=== PATIENT | male | born 1970 | race African-American/Black ===

== ENCOUNTER 2019-08-24 09:44 | Observation (INO) | payer BC, SELFPAY ==
[2019-08-24] VITALS (13 sets, daily range): BP systolic 102–143; BP diastolic 62–99; PULSE 67–117; RESP 14–24; TEMP 36.4–36.9; O2SAT 94–100; BMI 20.6
--- NOTE | ~2019-08-24 | CT_ITS ---
EXAMINATION: CT brain wo con DATE: 08/24/2019 12:30 INDICATION: Seizure. TECHNIQUE: Computed tomography (CT) of the head was performed without intravenous contrast. The mA wa s adjusted according to patient size. Iterative reconstruction technique was employed. The dose-lengt h product was 605.33 mGy-cm. COMPARISON: Head CT 05/30/2019 FINDINGS: There is no intracranial hemorrhage, acute infarction, or abnormal intracranial mass lesion . The ventricles are normal in size. There is mild mucosal thickening in the paranasal sinuses. The o rbits are normal. There is a small left mastoid effusion. IMPRESSION: 1. Normal brain. Reviewed, dictated and finalized at location A. [employer] IMPRESSION: 1. Normal brain.
--- NOTE | 2019-08-24 09:44 | ED.GENADULT ---
HPI - General Adult General Chief complaint: Seizure <Laura Dickerson PA-C - Last Filed: 08/24/19 12:41> Stated complaint: seizures <Laura Dickerson PA-C - Last Filed: 08/24/19 12:41> Source: patient and EMS <Laura Dickerson PA-C - Last Filed: 08/24/19 12:41> Mode of arrival: EMS <Laura Dickerson PA-C - Last Filed: 08/24/19 12:41> Limitations: no limitations <SUMI Maldonado Last Filed: 08/24/19 12:41> History of Present Illness HPI narrative: Patient was brought in by EMS after 911 call for reported seizure. Patient has a known seizure disorder, the patient tells me that he had a seizure approximately 9 AM. There was a family member at home with him at the time, she is not present at the bedside and it is unknown how long the seizure lasted. The patient is lucid, answering all questions appropriately and not complaining of any pain. He denies any alcohol or drug use. He also states that he has been out of his Keppra for at least a week. He was admitted to this facility August 07 for the same complaint. EMS reports that the patient was postictal on their arrival and that it was estimated at that time the seizure lasted 2 to 3 minutes. Patient reported to them that he took his seizure medication yesterday medication yesterday, but tells me he has been out for over a week. <Laura Dickerson PA-C - Last Filed: 08/24/19 12:41> Onset (ago): minute(s) <SUMI Maldonado Last Filed: 08/24/19 12:41> Severity: similar to prior episodes <SUMI aMldonado Last Filed: 08/24/19 12:41> Exacerbating factors: none <SUMI Maldonado Last Filed: 08/24/19 12:41> Treatments prior to arrival: none <SUMI Maldonado Last Filed: 08/24/19 12:41> Related Data Allergies/adverse reactions: Allergies Allergy/AdvReac Type Severity Reaction Status Date / Time No Known Allergies Allergy Unknown Verified 08/24/19 14:19 <Laura Dickerson PA-C - Last Filed: 08/24/19 12:41> Review of Systems Review of Systems: All systems reviewed & are unremarkable except as noted in HPI and below <Laura Dickerson PA-C - Last Filed: 08/24/19 12:41> [facility] Past Medical History Medical History: Medical History (Updated 08/27/19 @ 13:13 by Jackeline Morrison MD) Anxiety Hypertension Polysubstance abuse Urine drug screen positive on 08/07/2019 for amphetamines, cocaine, and cannabinoids. Urine drug screen positive on 08/24/2019 for cocaine and cannabinoids. Seizure disorder Tobacco dependence <Laura Dickerson PA-C - Last Filed: 08/24/19 12:41> Surgical History Surgical History: Surgical History No history of previous surgery <Laura Dickerson PA-C - Last Filed: 08/24/19 12:41> Family History Family History: Family History (Updated 08/24/19 @ 14:53 by Gilda Will PA-C) Mother Acute myocardial infarction Grandparent Acute myocardial infarction <Laura Dickerson PA-C - Last Filed: 08/24/19 12:41> Social History Social History: Social History (Updated 08/24/19 @ 14:55 by Gilda Will PA-C) Social History: The patient lives in [place] with his mayte. 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 He has smoked up to 1 pack of cigarettes per day for at least 20 years. He drinks 2 to 3 beers, several nights a week. He denies ever having any alcohol withdrawal symptoms. He admits to smoking marijuana daily. He uses cocaine recreationally, few times a week. He denies having ever used amphetamines however drug screen on 08/07/2019 was positive for amphetamines in addition to cocaine and cannabinoids. He assumes that his cocaine must have been contaminated with amphetamines. Smoking packs per day: 1 Smoking cigarettes per day: 20.0 Years smoked: 30 Smoking pack-years: 30.00 Smoking status: Unkno
--- NOTE | 2019-08-24 09:53 | PC.NURSE ---
Admits to running out of meds approx 1 week ago.
[2019-08-24 10:50] LABS: Basophils Percent Auto 0.5 % (0.2-1.2); Eosinophils Absolute Auto 0.2 K/mm3 (0-0.3); Eosinophils Percent Auto 1.8 % (0-4.4); Hematocrit 40.4 % (42.0-52.0); Immature Granulocyte Absolute 0.03 K/mm3 (0.00-0.031); Immature Granulocyte Percent A 0.4 % (0-0.5); Lymphocytes Absolute Auto 1.29 K/mm3 (0.9-3.2); Lymphocytes Percent Auto 15.3 % (18.3-44.2); Mean Corpuscular HGB Conc 34.7 g/dl (32-36); Mean Corpuscular Hemoglobin 31.5 pg (26-34); Mean Corpuscular Volume 90.8 fl (80-100); Mean Platelet Volume 10.9 fl (7.4-10.4); Monocytes Absolute Auto 0.6 K/mm3 (0.1-0.6); Monocytes Percent Auto 6.5 % (2.6-8.5); Neutrophils Absolute Auto 6.4 K/mm3 (1.3-6.7); Neutrophils Percent Auto 75.5 % (45.5-73.1); Platelet Count Result 235 k/mm3 (150-375); Red Blood Count 4.45 M/mm3 (4.6-6.20); Red Cell Distribution Width 13.5 % (11.5-14.5); White Blood Count 8.4 K/mm3 (4.5-10.0)
[2019-08-24] MEDS: LORAZEPAM INJ 2 MG/ML VIAL IV PUSH (10:58)
--- NOTE | 2019-08-24 10:58 | PC.NURSE ---
Patient heard snoring from tyalor; RN at bedside and found patient unresponsive with snoring respirations. PA called to bedside; verbal order for IV ativan 2 mg to be administered. Suctioned mouth and repositioned. Patient incontinent of bladder also.
[2019-08-24 11:00] LABS: Ethanol < 10 mg/dL (<10)
[2019-08-24 11:03] LABS: Alanine Aminotransferase 19 U/L (4-50); Albumin Level 4.6 g/dL (3.5-5.1); Alkaline Phosphatase 60 U/L (38-126); Aspartate Amino Transferase 30 U/L (17-59); Bilirubin,Total 0.3 mg/dL (0.2-1.3); Blood Urea Nitrogen 12 mg/dL (9-20); Calcium 9.2 mg/dL (8.4-10.2); Carbon Dioxide 25 mmol/L (22-30); Chloride 106 mmol/L (98-107); Estimated Glomerular Filt Rate > 60; Glucose 92 mg/dL (75-110); Sodium 140 mmol/L (137-145)
[2019-08-24 12:26] LABS: Amphetamine Screen Urine Negative (Negative); Barbiturate Screen Urine Negative (Negative); Benzodiazepines Screen Urine Negative (Negative); Cannabinoid Screen Urine Positive (Negative); Cocaine Screen Urine Positive (Negative); Methadone Screen Urine Negative (Negative); Opiate Screen Urine Negative (Negative); Phencyclidine Screen Urine Negative (Negative)
[2019-08-24] MEDS: levETIRAcetam 1000MG/NACL100ML 1,000 MG/100 ML BAG 400 MG IVPB ×2 (13:10→22:20)
--- NOTE | 2019-08-24 13:57 | ADMGEN ---
This patient, Gabriela Soriano, was admitted to IMU Room 201-01. Patient/family oriented to hospital policies and general routines including ID bracelet, bed and alarms, visiting hours, pain management, procedures, bathroom and other care routines, personal items, smoking policy, room service/diet, and visiting hours. Valuables list has been completed. Information on how to activate the Rapid Response Team has been discussed. Patient/Family are encouraged to report perceived risks to care and to ask questions if they do not understand what they are told or what they should do.
--- NOTE | 2019-08-24 14:15 | PM.IMHP ---
H&P: HPI History of Present Illness Chief complaint: seizure Narrative: Gabriela Soriano is a 48 year old male with a history of seizures, substance abuse, who presented to the emergency room via EMS after having a seizure. The patient states this morning he was sleeping and then had a seizure while laying in bed. He does report having urinary incontinence but denies any tongue biting. He states his fiancee witnessed the seizure and called 911. He is unsure how long the seizure lasted. Per the ER record it states that EMS found the patient in a postictal state on arrival and had reported the seizure lasted 2-3 minute. The patient states he has been out of his Keppra for about 1 week. He denies having a primary care who he follows up with and gets medications from. He does see Dr. Sen neurology as an outpatient. The patient denies any headache, lightheadedness, dizziness, chest pain, shortness of breath, cough, rhinorrhea, chest congestion, dysuria, frequent urination, nausea, vomiting, diarrhea, constipation, abdominal pain, leg swelling, numbness, tingling, neck pain, back pain, head trauma or any other symptoms at this time. Code status: Full code Power of defense attorney: MotherAldair PCP: None Review of Systems Review of Systems: All systems reviewed & are unremarkable except as noted in HPI and below PMFSH Past Medical History Medical History (Updated 08/24/19 @ 14:53 by Gilda Will PA-C) Anxiety Hypertension Polysubstance abuse Urine drug screen positive on 08/07/2019 for amphetamines, cocaine, and cannabinoids. Urine drug screen positive on 08/24/2019 for cocaine and cannabinoids. Seizure disorder Tobacco dependence Surgical History Surgical History No history of previous surgery Family History Family History (Updated 08/24/19 @ 14:53 by Gilda Will PA-C) Mother Acute myocardial infarction Grandparent Acute myocardial infarction Social History Social History (Updated 08/24/19 @ 14:55 by Gilda Will PA-C) Social History: The patient lives in [place] with his fiancee. 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 He has smoked up to 1 pack of cigarettes per day for at least 20 years. He drinks 2 to 3 beers, several nights a week. He denies ever having any alcohol withdrawal symptoms. He admits to smoking marijuana daily. He uses cocaine recreationally, few times a week. He denies having ever used amphetamines however drug screen on 08/07/2019 was positive for amphetamines in addition to cocaine and cannabinoids. He assumes that his cocaine must have been contaminated with amphetamines. Smoking packs per day: 1 Smoking cigarettes per day: 20.0 Years smoked: 30 Smoking pack-years: 30.00 Smoking status: Unknown if ever smoked Tobacco type: cigarettes Alcohol intake: current Alcohol use details: 2-3 beers per day Substance use: current Substance use type: marijuana and crack/cocaine Living arrangements: with family Gender identity (if verbalized by the patient): Male Agree to blood products: Yes Meds Home Medications and Allergies Home Medications Medication Instructions Recorded Confirmed Type amlodipine 5 mg PO DAILY 05/30/19 08/24/19 History folic acid 1 mg PO DAILY 05/30/19 08/24/19 History levetiracetam [Keppra] 750 mg PO BID #60 tablet 06/01/19 08/24/19 Rx thiamine HCl (vitamin B1) [Vitamin 100 mg PO QAM 30 Days #30 tablet 08/08/19 08/24/19 Rx B-1] ergocalciferol (vitamin D2) 1,250 mcg PO WEEKLY 08/24/19 08/24/19 History [Vitamin D2] Allergies Allergy/AdvReac Type Severity Reaction Status Date / Time No Known Allergies Allergy Unknown Verified 08/24/19 14:19 Vital Signs Vital Signs - 24 hr 08/24/19 09:46 08/24/19 09:52 08/24/19 12:39 Temperature 98.3 F Pulse Rate 80 80 74 Respiratory Rate
[2019-08-24] MEDS: THIAMINE HCL 200 MG/2 ML VIAL 100 MG IV PUSH (15:50)
[2019-08-24] MEDS: FOLIC ACID 1 MG/0.2 ML INJ IV PUSH (15:50)
--- NOTE | 2019-08-24 16:30 | ECG_ITS ---
Measurements Intervals [place] Rate: 89 P: 73 IL: 135 QRS: 66 QRSD: 88 T: 70 QT: 367 QTc: 447 Interpretive Statements SINUS RHYTHM NORMAL ECG Electronically Signed On 08-25-2019 7:54:53 VINYL DIPPER by Jose Maria Hutton D.O.
[2019-08-24 18:00] LABS: Potassium 3.8 mmol/L (3.4-5.0)
[2019-08-24] MEDS: ACETAMINOPHEN 325 MG TABLET 650 MG PO (19:53)
[2019-08-24] MEDS: FAMOTIDINE 20 MG/2 ML VIAL IV PUSH (19:55)
[2019-08-25] VITALS (12 sets, daily range): BP systolic 106–122; BP diastolic 69–83; PULSE 60–75; RESP 12–18; TEMP 36.3–36.9; O2SAT 98–100
[2019-08-25 04:25] LABS: Hematocrit 39.1 % (42.0-52.0); Hemoglobin 13.6 g/dL (14.0-18.0); Mean Corpuscular HGB Conc 34.8 g/dl (32-36); Mean Corpuscular Hemoglobin 31.5 pg (26-34); Mean Corpuscular Volume 90.5 fl (80-100); Mean Platelet Volume 11.4 fl (7.4-10.4); Platelet Count Result 243 k/mm3 (150-375); Red Blood Count 4.32 M/mm3 (4.6-6.20); Red Cell Distribution Width 13.4 % (11.5-14.5)
[2019-08-25 04:42] LABS: Blood Urea Nitrogen 12 mg/dL (9-20); Calcium 8.5 mg/dL (8.4-10.2); Carbon Dioxide 26 mmol/L (22-30); Chloride 101 mmol/L (98-107); Estimated CRCL calculation 88 ml/min; Estimated Glomerular Filt Rate > 60; Glucose 105 mg/dL (75-110); Potassium 3.3 mmol/L (3.4-5.0); Sodium 135 mmol/L (137-145)
[2019-08-25] MEDS: levETIRAcetam 1000MG/NACL100ML 1,000 MG/100 ML BAG 400 MG IVPB ×3 (06:25→21:14)
[2019-08-25] MEDS: AMLODIPINE BESYLATE 5 MG TABLET PO (09:43)
[2019-08-25] MEDS: FOLIC ACID 1 MG/0.2 ML INJ IV PUSH (09:44)
[2019-08-25] MEDS: THIAMINE HCL 200 MG/2 ML VIAL 100 MG IV PUSH (09:44)
[2019-08-25] MEDS: FAMOTIDINE 20 MG/2 ML VIAL IV PUSH ×2 (09:44→21:14)
--- NOTE | 2019-08-25 13:36 | PM.IMPN ---
Progress Note: A&P Assessment and Plan (1) Seizure disorder: Code(s): G40.909 - Epilepsy, unspecified, not intractable, without status epilepticus Status: Acute Assessment and Plan: Patient was brought to the ER after having a seizure at home prior to arrival. The patient had a 2nd seizure in the emergency department and was given IV Ativan. Neurology was consulted from the emergency department Patient will be given loading dose of Keppra IV 1000 mg Q 8 hours for the next 24 hours and then he can be transitioned to p.o. Keppra. Seizure precautions initiated. P.r.n. Ativan as needed for breakthrough seizures. No further seizures report likley secondary to non compliance to keppra. pt adviced to get his medication filled. Hopeful dischrage tomorrow after neurology consult and monitoring today. (2) Polysubstance abuse: Code(s): F19.10 - Other psychoactive substance abuse, uncomplicated Status: Acute Assessment and Plan: Patient has a history of alcohol abuse and his urine drug screen on arrival was positive for marijuana and cocaine. Will continue monitoring for any alcohol withdrawal symptoms. (3) Hypertension: Qualifiers: Hypertension type: essential hypertension Qualified Code(s): I10 - Essential (primary) hypertension Code(s): I10 - Essential (primary) hypertension Status: Acute Assessment and Plan: Blood pressure since arrival has been slightly elevated. P.r.n. hydralazine as needed for systolic blood pressure greater than 180 or diastolic blood pressure greater than 100. Continue monitoring BP. Subjective Date/time seen: 08/25/19 13:36 Interval history: Gabriela Soriano is a 48 year old male with a history of seizures, substance abuse, who presented to the emergency room via EMS after having a seizure. The patient states this morning he was sleeping and then had a seizure while laying in bed. He does report having urinary incontinence but denies any tongue biting. Pt admitted with a seizure. Pt likes to drink beer once a day, pt states he missed taking his keppra, long discussion about compliance to his seizure medications. Review of Systems Review of Systems: All systems reviewed & are unremarkable except as noted in HPI and below Exam Narrative: Exam Narrative: General: 48-year-old man laying flat in bed. Skin: Right middle finger with small skin tear. Head: Normocephalic atraumatic Neck: Full range of motion. Supple. Nontender. Respiratory: Lungs are clear to auscultation bilaterally. No bony chest wall tenderness. Cardiovascular: The heart has a regular rate and rhythm without murmur. No carotid bruits. Lower extremities: No lower extremity edema. Distal pulses are easily palpated. No calf tenderness to palpation. Gastrointestinal: The abdomen is soft, nontender and nondistended with active bowel sounds. Psychiatric: Lucid and oriented. Memory intact. Neurologic: A&O x4. Moving all extremities without any difficulty. Strength to extremities 5/5 equal bilaterally. No sensation changes. No focal deficits. Speech is clear. No facial drooping. Objective Data Vital Signs Vital Signs: Vital Signs - 24 hr 08/24/19 14:15 08/24/19 14:52 08/24/19 15:59 Temperature 36.9 C 36.7 C Pulse Rate 75 73 90 Respiratory Rate 20 24 H Blood Pressure 143/88 H 102/62 Pulse Oximetry 100 94 08/24/19 16:00 08/24/19 18:16 08/24/19 19:32 Temperature 36.7 C Pulse Rate 117 H 82 77 Respiratory Rate 18 Blood Pressure 130/90 Pulse Oximetry 99 08/24/19 20:00 08/24/19 22:00 08/24/19 23:33 Temperature 36.4 C L Pulse Rate 73 67 72 Respiratory Rate 18 Blood Pressure 116/87 Pulse Oximetry 98 08/25/19 00:00 08/25/19 02:00 08/25/19 03:45 Temperature 36.3 C L Pulse Rate 6
--- NOTE | 2019-08-25 17:45 | PC.NURSE ---
This patient, Gabriela Soriano, was transferred to [facility] on 08/25/19 at 1745. Personal belongings sent with patient. Belongings list checked and signed with receiving RN. Report given to YRN Dejesus. Appropriate documentation sent with patient.
--- NOTE | 2019-08-25 19:41 | PC.NURSE ---
Patient arrived from IMU @1720. Patient A&Ox3 and oriented to our unit. Call light with patient, seizure precautions in place, bed alarm set.
[2019-08-26] MEDS: levETIRAcetam 1000MG/NACL100ML 1,000 MG/100 ML BAG 400 MG IVPB ×2 (05:48→15:48)
[2019-08-26 06:00] VITALS: BP 123/79; PULSE 55; RESP 20; TEMP 36.8; O2SAT 100
[2019-08-26 08:52] VITALS: BP 104/65; PULSE 62; RESP 18; O2SAT 99
[2019-08-26] MEDS: ERGOCALCIFEROL 50,000 UNIT CAPSULE 50000 UNITS PO (08:56)
[2019-08-26] MEDS: AMLODIPINE BESYLATE 5 MG TABLET PO (08:56)
[2019-08-26] MEDS: THIAMINE HCL 200 MG/2 ML VIAL 100 MG IV PUSH (08:56)
[2019-08-26] MEDS: FAMOTIDINE 20 MG/2 ML VIAL IV PUSH (08:58)
[2019-08-26] MEDS: FOLIC ACID 1 MG/0.2 ML INJ IV PUSH (08:59)
[2019-08-26 10:32] LABS: Hematocrit 38.2 % (42.0-52.0); Hemoglobin 13.1 g/dL (14.0-18.0); Mean Corpuscular HGB Conc 34.3 g/dl (32-36); Mean Corpuscular Hemoglobin 31.2 pg (26-34); Mean Platelet Volume 10.8 fl (7.4-10.4); Platelet Count Result 221 k/mm3 (150-375); Red Cell Distribution Width 13.2 % (11.5-14.5); White Blood Count 7.8 K/mm3 (4.5-10.0)
[2019-08-26 10:47] LABS: Blood Urea Nitrogen 9 mg/dL (9-20); Calcium 8.4 mg/dL (8.4-10.2); Carbon Dioxide 28 mmol/L (22-30); Chloride 103 mmol/L (98-107); Estimated CRCL calculation 100 ml/min; Estimated Glomerular Filt Rate > 60; Glucose 105 mg/dL (75-110); Magnesium 1.6 mg/dL (1.6-2.3); Potassium 3.6 mmol/L (3.4-5.0); Sodium 136 mmol/L (137-145)
[2019-08-26 14:00] VITALS: BP 121/80; PULSE 69; RESP 18; TEMP 36.6; O2SAT 100
--- NOTE | 2019-08-26 15:51 | PM.DS ---
DS: Diagnosis Admitting Diagnosis Admitting Diagnosis: Epilepsy, unspecified, not intractable, without status epilepticus Discharge Diagnosis (1) Seizure disorder: Code(s): G40.909 - Epilepsy, unspecified, not intractable, without status epilepticus Status: Acute Assessment and Plan: Patient was brought to the ER after having a seizure at home prior to arrival. The patient had a 2nd seizure in the emergency department and was given IV Ativan. Neurology was consulted from the emergency department Patient will be given loading dose of Keppra IV 1000 mg Q 8 hours for the next 24 hours and then he can be transitioned to p.o. Keppra. Seizure precautions initiated. P.r.n. Ativan as needed for breakthrough seizures. No further seizures report likley secondary to non compliance to keppra. pt adviced to get his medication filled. Hopeful dischrage tomorrow after neurology consult and monitoring today. (2) Polysubstance abuse: Code(s): F19.10 - Other psychoactive substance abuse, uncomplicated Status: Acute Assessment and Plan: Patient has a history of alcohol abuse and his urine drug screen on arrival was positive for marijuana and cocaine. Will continue monitoring for any alcohol withdrawal symptoms. (3) Hypertension: Qualifiers: Hypertension type: essential hypertension Qualified Code(s): I10 - Essential (primary) hypertension Code(s): I10 - Essential (primary) hypertension Status: Acute Assessment and Plan: Blood pressure since arrival has been slightly elevated. P.r.n. hydralazine as needed for systolic blood pressure greater than 180 or diastolic blood pressure greater than 100. Continue monitoring BP. DS: Summary Hospital Course Reason for hospitalization: Gabriela Soriano is a 48 year old male with a history of seizures, substance abuse, who presented to the emergency room via EMS after having a seizure. The patient states this morning he was sleeping and then had a seizure while laying in bed. He does report having urinary incontinence but denies any tongue biting. He states his fiancee witnessed the seizure and called 911. He is unsure how long the seizure lasted. Per the ER record it states that EMS found the patient in a postictal state on arrival and had reported the seizure lasted 2-3 minute. The patient states he has been out of his Keppra for about 1 week. He denies having a primary care who he follows up with and gets medications from. He does see Dr. Sen neurology as an outpatient. The patient denies any headache, lightheadedness, dizziness, chest pain, shortness of breath, cough, rhinorrhea, chest congestion, dysuria, frequent urination, nausea, vomiting, diarrhea, constipation, abdominal pain, leg swelling, numbness, tingling, neck pain, back pain, head trauma or any other symptoms at this time. Hospital Course: Patient is a 48 year male with a history of seizure and polysubstance severe he had been out of his Keppra and not been taking the medication, he reported on the day of the admission while in the bed he had seizures urinary incontinence patient was brought to the emergency department further evaluation he was started on IV Keppra loaded, patient has not had any seizure while in the hospital clinically stable will resume his oral Keppra and have given him 2 refills with 2nd to follow-up with neurologist as soon as possible, also instructed not to drive until seen by his neurologist Status at Discharge Cognitive/behavioral status at discharge: Patient is back to the baseline Functional status at discharge: independent ambulation Overall status at discharge: patient is back to baseline Time Spent with Patient Time attestation: Total time spent providing and/or coordinating discharge services:
--- NOTE | 2019-08-26 19:58 | PC.NURSE ---
Patient discharged @1735, patient left wheel chair via volunteer services. Patient refused to have family pick him up to transport home. The patient's fiance called and offered to pick him up but the patient denied and said he would take the bus home.
--- NOTE | 2019-08-26 20:01 | PC.NURSE ---
New medications verified with the patient upon discharge and new prescriptions were transmitted to patients pharmacy.
== END 2019-08-26 17:35 | disposition home or self-care (01) ==
LOC: ANHED 14:05 → ANHIMU 15:22 → ANH3MEDSUR 08-26 08:42 → ANHIMU 08-27 09:43
PROVIDERS: Physician Assistant; Admitting Provider Hospitalist; Emergency Provider Emergency Medicine; Visit Provider Family Medicine
DX: G40.909 Epilepsy, unspecified, not intractable, without status epilepticus (principal); F19.10 Other psychoactive substance abuse, uncomplicated; F10.10 Alcohol abuse, uncomplicated; F17.210 Nicotine dependence, cigarettes, uncomplicated; I10 Essential (primary) hypertension; Z79.899 Other long term (current) drug therapy; Z91.14 Patient's other noncompliance with medication regimen
CPT/HCPCS: 36415; 51701; 70450; 80048; 80053; 80307; 83735; 84132; 85025; 85027; 93005; 96365; 96366; 96375; 96376; 97161; 97165; 99285; A9270; G0378; G0379; J1953; J2060; J3411

== ENCOUNTER 2019-12-05 05:51 | Observation (INO) | payer BC, SELFPAY ==
[2019-12-05] VITALS (30 sets, daily range): BP systolic 112–175; BP diastolic 69–101; PULSE 77–185; RESP 18–29; TEMP 36.5–37.1; O2SAT 89–100; BMI 21.2
--- NOTE | ~2019-12-05 | XR_ITS ---
EXAMINATION: XR chest 1V portable DATE: 12/05/2019 07:13 INDICATION: Shortness of breath. TECHNIQUE: A single frontal view of the chest was obtained. COMPARISON: chest single view 08/07/19 FINDINGS: There is mild atelectasis at left lung base. No pleural effusion or pneumothorax. The heart size is normal. IMPRESSION: 1. Mild atelectasis at left lung base. Reviewed, dictated and finalized at location A.
--- NOTE | ~2019-12-05 | XR_ITS ---
EXAMINATION: XR chest 1V portable DATE: 12/06/2019 10:58 INDICATION: Aspiration. TECHNIQUE: A single frontal view of the chest was obtained. COMPARISON: Chest single view 12/05/2019 FINDINGS: There is no pneumonia, pleural effusion, or pneumothorax. The heart size is normal. IMPRESSION: 1. No acute cardiopulmonary disease. Reviewed, dictated and finalized at location A.
--- NOTE | ~2019-12-05 | XR_ITS ---
EXAMINATION: XR chest 1V portable DATE: 12/05/2019 14:45 INDICATION: Aspiration. TECHNIQUE: A single frontal view of the chest was obtained. COMPARISON: Chest single view at 7:07 AM FINDINGS: The patient is rotated to his left. There is no pneumonia, pleural effusion, or pneumothora x. The heart size is normal. IMPRESSION: 1. No acute cardiopulmonary disease. Reviewed, dictated and finalized at location A.
--- NOTE | 2019-12-05 06:14 | ECG_ITS ---
Measurements Intervals [place] Rate: 171 P: IN: 0 QRS: 76 QRSD: 94 T: 62 QT: 269 QTc: 455 Interpretive Statements ATRIAL FIBRILLATION WITH RAPID VENTRICULAR RESPONSE BORDERLINE ST ABNORMALITY- ANTEROLAT/INF LEADS ABNORMAL ECG Electronically Signed On 12-05-2019 7:20:56 CDT by Jose Maria Hutton D.O.
--- NOTE | 2019-12-05 06:15 | ED.SEIZURE ---
HPI - Seizure General Chief Complaint: Seizure Stated Complaint: seizures Time Seen by Provider: 12/05/19 06:12 History of Present Illness HPI Narrative: Patient arrives via EMS with his jose antonio for repeated seizures at home. He has been out of his medicine for 3 days and is supposed to pick it up this morning. He is postictal and confused and I cannot get any information from him currently. His EKG shows a heart rate of 171 and A. fib rapid ventricular response. We will treat that with diltiazem, and start him on some Keppra for his seizures. MD complaint: seizure Seizure History: Yes Related Data Allergies Allergy/AdvReac Type Severity Reaction Status Date / Time No Known Allergies Allergy Unknown Verified 08/24/19 14:19 Review of Systems Review of Systems: Narrative: Cannot obtain a review of systems with the patient being postictal. [facility] Past Medical History Medical History Anxiety Hypertension Polysubstance abuse Urine drug screen positive on 08/07/2019 for amphetamines, cocaine, and cannabinoids. Urine drug screen positive on 08/24/2019 for cocaine and cannabinoids. Seizure disorder Tobacco dependence Surgical History Surgical History No history of previous surgery Family History Family History Mother Acute myocardial infarction Grandparent Acute myocardial infarction Social History Social History Social History: The patient lives in [place] with his mayte. 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 He has smoked up to 1 pack of cigarettes per day for at least 20 years. He drinks 2 to 3 beers, several nights a week. He denies ever having any alcohol withdrawal symptoms. He admits to smoking marijuana daily. He uses cocaine recreationally, few times a week. He denies having ever used amphetamines however drug screen on 08/07/2019 was positive for amphetamines in addition to cocaine and cannabinoids. He assumes that his cocaine must have been contaminated with amphetamines. Smoking packs per day: 1 Smoking cigarettes per day: 20.0 Years smoked: 30 Smoking pack-years: 30.00 Smoking status: Unknown if ever smoked Tobacco type: cigarettes Alcohol intake: current Substance use: current Substance use type: marijuana and crack/cocaine Gender identity (if verbalized by the patient): Male Agree to blood products: Yes Exam Narrative: Exam Narrative: GENERAL: Patient is barely awake nonresponsive, has blood on his chin, and stool in his close HEAD: Normocephalic, EYES: PERRLA and EOMI. ENT: Nares clear, no rhinorrhea or epistaxis. Mucous membranes moist. NECK: Supple. CHEST: Audible rhonchi HEART: Regular rate and rhythm. No murmur heard. Normal peripheral pulses. ABDOMEN: Soft, nontender, nondistended, normal active bowel sounds. EXTREMITIES: No edema. SKIN: Warm, dry, no rash. NEURO: Postictal.. Course Reevaluation(s) Reevaluation #1: The patient is now awake and feeling better. I explained about his heart rate the A. fib, and that he needs to stay in the hospital for that. He and his fianc?e agree. Consultations Consultation #1: Call the hospitalist at 745 for admission for A. fib rapid ventricular rate. Dr. Rodriguez agrees with the admission and requests that we get a cardiology consult. ENT was called back and said it would be Dr. Jacob during the consult. Date: 12/05/19 Time: 07:48 Consultation #2: Called for the fire support man on-call. Date: 12/05/19 Vital Signs Vital signs: Vital Signs Temperature 98.7 F 12/05/19 05:49 Pulse Rate 166 H 12/05/19 05:49 Respiratory Rate 27 H 12/05/19 05:49 Blood Pressure 175/101 H 12/05/19 05:49 Pulse Oximetry 93 12/05/19 05:49 Temperature 98.7 F
[2019-12-05] MEDS: levETIRAcetam 1000MG/NACL100ML 1,000 MG/100 ML BAG 400 MG IVPB ×2 (06:30→20:55)
--- NOTE | 2019-12-05 06:36 | PC.NURSE ---
While in room, patient began to have another 10 second seizure. EDP Juliet was in room, per EDP Juliet place patient on his side to support his airway. Patient's O2 increased to 4L via NC. Patient began to speak in full sentences prior to this seizure.
[2019-12-05 06:48] LABS: Basophils Absolute Auto 0.1 K/mm3 (0.0-0.1); Basophils Percent Auto 0.3 % (0.2-1.2); Eosinophils Absolute Auto 0.3 K/mm3 (0-0.3); Eosinophils Percent Auto 1.4 % (0-4.4); Hematocrit 44.9 % (42.0-52.0); Hemoglobin 14.5 g/dL (14.0-18.0); Immature Granulocyte Percent A 0.6 % (0-0.5); Lymphocytes Absolute Auto 4.35 K/mm3 (0.9-3.2); Lymphocytes Percent Auto 24.2 % (18.3-44.2); Mean Corpuscular HGB Conc 32.3 g/dl (32-36); Mean Corpuscular Hemoglobin 31.6 pg (26-34); Mean Corpuscular Volume 97.8 fl (80-100); Mean Platelet Volume 11.4 fl (7.4-10.4); Monocytes Absolute Auto 1.2 K/mm3 (0.1-0.6); Monocytes Percent Auto 6.9 % (2.6-8.5); Neutrophils Percent Auto 66.6 % (45.5-73.1); Platelet Count Result 214 k/mm3 (150-375); Red Blood Count 4.59 M/mm3 (4.6-6.20); Red Cell Distribution Width 14.6 % (11.5-14.5)
[2019-12-05 06:58] LABS: Prothrombin Time 12.4 Seconds (11.1-14.7)
[2019-12-05 07:04] LABS: Albumin Level 5.1 g/dL (3.5-5.1); Alkaline Phosphatase 72 U/L (38-126); Aspartate Amino Transferase 78 U/L (17-59); Bilirubin,Total 0.2 mg/dL (0.2-1.3); Blood Urea Nitrogen 8 mg/dL (9-20); Calcium 9.9 mg/dL (8.4-10.2); Carbon Dioxide 10 mmol/L (22-30); Chloride 105 mmol/L (98-107); Estimated Glomerular Filt Rate > 60; Glucose 165 mg/dL (75-110); Potassium 3.6 mmol/L (3.4-5.0); Sodium 144 mmol/L (137-145)
[2019-12-05 07:10] LABS: Alanine Aminotransferase 50 U/L (4-50)
[2019-12-05 07:15] LABS: Add Urine Microscopic? YES; Appearance Urine Clear (Clear); Bacteria Urine Trace /hpf; Bilirubin Urine Negative (Negative); Blood Urine 2+ (Negative); Color Urine Straw (Yellow); Glucose Urine UA Negative (Negative); Hyaline Casts Urine 20-29 /lpf; Ketones Urine Negative (Negative); Leukocyte Esterase Ur Negative LEU/UL (Negative); Mucus Urine Rare /lpf; Nitrate Urine Negative (Negative); Protein Urine 3+ mg/dL (Negative); Specific Grav Ur 1.012 (1.001-1.035); Urobilinogen Urine Negative mg/dL (<2.0); WBC Urine 0-3 /hpf
--- NOTE | 2019-12-05 08:14 | PC.NURSE ---
assuming care of pt from [place] [facility]. Pt is A&Ox2 (self and place). Pt resting with eyes closed and even rise and fall of chest. Pt aware of POC. Pt has call light in reach. Pt has depends on due to incontinence with seizure. Pt has seizure pads in place. Pt has family at bedside .
--- NOTE | 2019-12-05 09:00 | PC.NURSE ---
This patient, Gabriela Soriano, was admitted to IMU Room 232-01. Patient oriented to hospital policies and general routines including ID bracelet, bed and alarms, visiting hours, pain management, procedures, bathroom and other care routines, personal items, smoking policy, room service/diet, and visiting hours. Valuables list has been completed. Information on how to activate the Rapid Response Team has been discussed. Patient are encouraged to report perceived risks to care and to ask questions if they do not understand what they are told or what they should do.
--- NOTE | 2019-12-05 09:18 | ECHO_ITS ---
Patient Info Name: Gabriela Soriano Age: 48 years : 1970 Gender: Male Ht: 71 in Wt: 165 lbs BSA: 1.94 m2 BP: 123 / 92 mmHg Heart Rhythm: Sinus Rhythm Technical Quality: Good Exam Date: 12/05/2019 9:56 AM Exam Location: [facility] Patient Status: Outpatient Admit Date: 12/05/2019 Staff Ordering Physician: Belem Jacob MD Appeals Rn: Angel Mart, LAURA, RT Attending Provider: Estephania Rodriguez MD Referring Physician: Nidia MATTHEW; Exam Type: CA echo doppler color flow Study Info Indications I48.0 - Paroxysmal atrial fibrillation Complete two-dimensional, color flow and Doppler transthoracic echocardiogram is performed. Summary 1. Left ventricular chamber size, systolic function and diastolic function are normal with no regional wall motion abnormalities with an estimated ejection fraction of 60-65%. There is borderline concentric hypertrophy. 2. No significant valve disease. 3. Normal sinus rhythm. 4. No pulmonary hypertension, estimated pulmonary arterial systolic pressure is 27 mmHg. Left Ventricle Left ventricular chamber dimension is normal. Left ventricular systolic function is normal, estimated at Empty. There is mildly increased left ventricular wall thickness. Left ventricular septal wall motion is normal. The left ventricular diastolic function is normal. Global longitudinal strain is normal at 18 %. Left ventricular chamber size, systolic function and diastolic function are normal with no regional wall motion abnormalities with an estimated ejection fraction of 60-65%. There is borderline concentric hypertrophy. Right Ventricle Right ventricular chamber dimension is normal. Right ventricular systolic function is normal. Left Atria Left atrial chamber dimension is normal. Right Atria Right atrial chamber dimension is normal. Aortic Valve The aortic valve is trileaflet. There is no aortic valve sclerosis. There is no aortic valve stenosis. There is no aortic valve regurgitation. Pulmonic Valve The pulmonic valve is normal. There is no pulmonic valve stenosis. There is trace pulmonic regurgitation. Mitral Valve The mitral valve has normal leaflets. There is no mitral valve stenosis. There is no mitral valve regurgitation. Tricuspid Valve The tricuspid valve leaflets are normal. There is no significant tricuspid valve stenosis. There is trace tricuspid valve regurgitation. No pulmonary hypertension, estimated pulmonary arterial systolic pressure is 27 mmHg. Pericardium/Pleural The pericardium appears normal. There is no pericardial effusion. Inferior Vena Cava Normal inferior vena cava with >50% collapse upon inspiration consistent with Empty right atrial pressure, 5 mmHg. Aorta The aortic root size at the sinus of Valsalva is normal. The prox ascending aorta size is normal. Left Ventricular Outflow Tract Name Value Normal LVOT 2D LVOT Diameter 2.2 cm LVOT Doppler LVOT Peak Gradient 7 mmHg LVOT Mean Gradient 3 mmHg LVOT VTI 24 cm
--- NOTE | 2019-12-05 09:24 | WPDCN ---
Assessment and Plan Assessment and plan (1) Atrial fibrillation with RVR: Code(s): I48.91 - Unspecified atrial fibrillation Status: Acute Assessment and Plan: New onset of AFib RVR, transient, now back to NSR. Likely related to his acute seizures, possibly some contribution from alcohol. No drug screen done on this admission but he has history of polysubstance abuse. Check TSH Echo Low risk for cardioembolic event. Would use aspirin daily instead of any anticoagulant. Discontinue Cardizem drip and add p.o. metoprolol. Probably can be discharged this afternoon or tomorrow morning from my point of view if no recurrence and testing shows no significant pathology. (2) Seizure disorder: Code(s): G40.909 - Epilepsy, unspecified, not intractable, without status epilepticus Status: Acute Assessment and Plan: Keppra has been resumed. (3) Hypertension: Qualifiers: Hypertension type: essential hypertension Qualified Code(s): I10 - Essential (primary) hypertension Code(s): I10 - Essential (primary) hypertension Status: Acute Assessment and Plan: Will try using hypertension for both the AFib and blood pressure to reduce polypharmacy and hopefully promote compliance (4) Medically noncompliant: Code(s): Z91.19 - Patient's noncompliance with other medical treatment and regimen Status: Acute Assessment and Plan: Compliance with medications recommended (5) Polysubstance abuse: Code(s): F19.10 - Other psychoactive substance abuse, uncomplicated Status: Acute Assessment and Plan: History of drug screens positive for amphetamines and cocaine as well as cannabinoids.. Admits to 2-3 beers a day. Patient denies ever using drugs. HPI Data of Consult Date/Time: 12/05/19 09:24 Requesting Physician: Estephania Rodriguez MD Primary Care Provider: UNKNOWN,DOCTOR Consult Narrative Narrative: Date of service: 12/05/2019 Mr. Oliver Soriano is a 48-year-old male whom we were asked to see at the request of Dr. Rodriguez for advice and opinion regarding his new onset of atrial fibrillation with rapid ventricular rate. Mr. Soriano has no prior history of heart disease but does have hypertension and polysubstance abuse. He developed seizures over the past year. This morning he had about 3 seizures and came to the emergency room with AFib RVR, postictal. He was given IV Cardizem 10 mg and started on a Cardizem drip at 5 milligrams/hour. He does converted back to sinus rhythm. The patient denies any chest discomfort, shortness of breath, palpitations, bleeding problems, thyroid disease, exertional angina. Although the patient has a history of polysubstance abuse he denies any drug use at all. Drinks 2-3 beers a day. He is unaware of any diagnosis of hypertension, although amlodipine is on his medication list. Denies diabetes or hyperlipidemia. Does smoke. Review of Systems Constitutional: Constitutional: Denies chills Eyes: Eyes: Denies blurry vision ENT: Denies epistaxis Cardiovascular: Cardiovascular: Denies chest pain, Denies pedal edema, Denies leg edema, Denies lightheadedness and Denies palpitations Respiratory: Respiratory: Denies chest congestion, Denies cough, Denies dyspnea and Denies dyspnea on exertion Gastrointestinal: Gastrointestinal: Denies abdominal pain, Denies hematochezia and Denies hematemesis Genitourinary: Genitourinary: Denies hematuria and Denies dysuria Musculoskeletal: Musculoskeletal: Denies back pain and Denies arthralgias Integumentary/Breasts: Skin/Breast: Denies rash Neurologic: Denies headache(s) Comments: Has had seizures for the last 1-2 years. Psychiatric: Psychiatric: Denies behavioral changes
[2019-12-05] MEDS: SODIUM CHLORIDE 0.9% IV 1,000 ML 125 ML IV CONT ×2 (10:55→20:54)
[2019-12-05 11:41] LABS: Magnesium 1.8 mg/dL (1.6-2.3)
[2019-12-05] MEDS: ASPIRIN 325 MG TABLET PO (12:46)
[2019-12-05] MEDS: METOPROLOL SUCCINATE EXT REL 25 MG TABCR PO (12:46)
--- NOTE | 2019-12-05 12:51 | PM.IMHP ---
H&P: HPI History of Present Illness Chief complaint: a fib rvr,seizures,fecal incontinance Narrative: Gabriela Soriano is a 48 year old male with recent history of seizures a patient states that he ran out of his seizure medication 2 days ago and had not taken any medication he presented emergency department after he had 3 episode of seizure, was started on IV Keppra, while in the emergency department patient had atrial fibrillation with RVR he was given 10 mg IV diltiazem and started on a diltiazem drip, patient also has a history of alcohol abuse as well as illicit drug abuse in the past including cocaine which he denies at the present time but does drink alcohol to 3 beers daily, currently patient denies any complaint of chest pain shortness of breath palpitation fever or chills Review of Systems Review of Systems: All systems reviewed & are unremarkable except as noted in HPI and below PMFSH Past Medical History Medical History Anxiety Hypertension Polysubstance abuse Urine drug screen positive on 08/07/2019 for amphetamines, cocaine, and cannabinoids. Urine drug screen positive on 08/24/2019 for cocaine and cannabinoids. Seizure disorder Tobacco dependence Surgical History Surgical History No history of previous surgery Family History Family History Mother Acute myocardial infarction Grandparent Acute myocardial infarction Father Unknown family medical history Social History Social History Social History: The patient lives in [place] with his [facility]. 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 He has smoked up to 1 pack of cigarettes per day for at least 20 years. He drinks 2 to 3 beers, several nights a week. He denies ever having any alcohol withdrawal symptoms. He admits to smoking marijuana daily. He uses cocaine recreationally, few times a week. He denies having ever used amphetamines however drug screen on 08/07/2019 was positive for amphetamines in addition to cocaine and cannabinoids. He assumes that his cocaine must have been contaminated with amphetamines. Smoking packs per day: 0.5 Smoking cigarettes per day: 10.0 Years smoked: 15 Smoking pack-years: 7.50 Smoking status: Current every day smoker Tobacco type: cigarettes Second hand tobacco smoke exposure: Yes Alcohol intake: current Drinks per week: 21 Substance use: former Substance use type: marijuana and crack/cocaine Gender identity (if verbalized by the patient): Male Agree to blood products: Yes Meds Home Medications and Allergies Home Medications Medication Instructions Recorded Confirmed Type folic acid 1 mg PO DAILY #30 tablet 08/26/19 12/05/19 Rx levetiracetam [Keppra] 750 mg PO BID #60 tablet 08/26/19 12/05/19 Rx thiamine HCl (vitamin B1) 100 mg PO DAILY #30 tablet 08/26/19 12/05/19 Rx Allergies Allergy/AdvReac Type Severity Reaction Status Date / Time No Known Allergies Allergy Unknown Verified 12/05/19 09:29 Vital Signs Vital Signs - 24 hr 12/05/19 05:49 12/05/19 06:30 12/05/19 06:46 Temperature 98.7 F Pulse Rate 166 H 131 H 131 H Respiratory Rate 27 H 24 H 27 H Blood Pressure 175/101 H 120/80 112/69 Pulse Oximetry 93 98 90 12/05/19 06:47 12/05/19 06:52 12/05/19 07:00 Temperature Pulse Rate 140 H 148 H 181 H Respiratory Rate 27 H 26 H Blood Pressure 122/78 Pulse Oximetry 89 L 97 12/05/19 07:01 12/05/19 07:15 12/05/19 07:16 Temperature Pulse Rate 185 H 147 H 139 H Respiratory Rate 29 H 20 25 H Blood Pressure 121/95 H Pulse Oximetry 12/05/19 07:17 12/05/19 07:30 12/05/19 07:31 Temperature Pulse Rate 130 H 119 H 131 H Respiratory Rate 22 H 18 22 H Blood Pressure 127/97 H
[2019-12-05] MEDS: LORAZEPAM INJ 2 MG/ML VIAL IV PUSH (14:20)
--- NOTE | 2019-12-05 14:46 | PC.NURSE ---
1440 Patient's bed alarm sounding. Entered room to find patient on stomach and violently shaking. Patient breathing heavy and unable to clear secretions. Patient's mouth suctioned. Dr. Rodriguez called made aware of seizure. Ativan 2mg IVP x1 ordered and administered. Dr. Rodriguez in room to see patient. New orders received. Will continue to monitor patient.
[2019-12-05 14:50] LABS: Thyroid Stimulating Hormone 0.977 uIU/mL (0.465-4.680)
[2019-12-06] VITALS (17 sets, daily range): BP systolic 140–170; BP diastolic 78–109; PULSE 59–79; RESP 18–20; TEMP 36.1–36.6; O2SAT 95–100
[2019-12-06 05:10] LABS: Hematocrit 36.2 % (42.0-52.0); Hemoglobin 12.7 g/dL (14.0-18.0); Mean Corpuscular HGB Conc 35.1 g/dl (32-36); Mean Corpuscular Hemoglobin 31.3 pg (26-34); Mean Corpuscular Volume 89.2 fl (80-100); Mean Platelet Volume 10.6 fl (7.4-10.4); Platelet Count Result 154 k/mm3 (150-375); Red Blood Count 4.06 M/mm3 (4.6-6.20); Red Cell Distribution Width 13.7 % (11.5-14.5); White Blood Count 16.9 K/mm3 (4.5-10.0)
[2019-12-06] MEDS: SODIUM CHLORIDE 0.9% IV 1,000 ML 125 ML IV CONT ×2 (05:16→14:45)
[2019-12-06 05:30] LABS: Alanine Aminotransferase 37 U/L (4-50); Albumin Level 3.8 g/dL (3.5-5.1); Alkaline Phosphatase 57 U/L (38-126); Aspartate Amino Transferase 51 U/L (17-59); Bilirubin,Total 0.7 mg/dL (0.2-1.3); Blood Urea Nitrogen 8 mg/dL (9-20); Carbon Dioxide 23 mmol/L (22-30); Chloride 107 mmol/L (98-107); Estimated CRCL calculation 87 ml/min; Estimated Glomerular Filt Rate > 60; Glucose 91 mg/dL (75-110); Potassium 3.2 mmol/L (3.4-5.0); Sodium 136 mmol/L (137-145)
[2019-12-06 05:48] LABS: Amphetamine Screen Urine Negative (Negative); Barbiturate Screen Urine Negative (Negative); Benzodiazepines Screen Urine Negative (Negative); Cannabinoid Screen Urine Positive (Negative); Cocaine Screen Urine Negative (Negative); Methadone Screen Urine Negative (Negative); Opiate Screen Urine Negative (Negative); Phencyclidine Screen Urine Negative (Negative)
[2019-12-06] MEDS: ASPIRIN 325 MG TABLET PO (09:15)
[2019-12-06] MEDS: FOLIC ACID 1 MG TABLET PO (09:15)
[2019-12-06] MEDS: THIAMINE HCL 100 MG TABLET PO (09:16)
[2019-12-06] MEDS: levETIRAcetam 1000MG/NACL100ML 1,000 MG/100 ML BAG 400 MG IVPB (09:16)
[2019-12-06] MEDS: METOPROLOL SUCCINATE EXT REL 25 MG TABCR PO (09:16)
[2019-12-06] MEDS: POTASSIUM CHLORIDE 20 MEQ TABLET 40 MEQ PO (09:16)
--- NOTE | 2019-12-06 10:48 | PM.PNCARD ---
Progress Note: A&P Additional Plan 48-year-old black male with: Transient atrial fibrillation probably related to seizure activity and sympathetic overdrive secondary to this Simple beta-elo therapy recommended at this time anticoagulation does not appear to be indicated No additional cardiac recommendations today Billy Blanc MD [facility] Subjective Date/time seen: Date of service: 12/06/19 10:48 Interval history: Follow-up visit with this 48-year-old man with a transient atrial fibrillation in the setting of recurrent seizures. Patient is comfortable resting in bed hoping to be discharged today offers no complaints currently Exam Const: General: comfortable and no acute distress Other: Resting comfortably in bed watching television HENMT: Mouth: Yes moist mucous membranes Eyes: Sclera: sclerae normal Pupils: Equal, round and reactive pupils present Neck: Neck: supple and no JVD Thyroid: thyroid normal Resp: Effort & Inspection: normal respiratory effort Auscultation: clear to auscultation bilaterally Cardio: Rate: regular rate Rhythm: regular rhythm Other: No murmur no gallop no rub GI: Auscultation: normal bowel sounds Skin: General skin exam: normal color Neuro: Cognition (Neuro): normal cognition Extrem: General: normal to inspection Objective Data Vital Signs Vital Signs: Vital Signs - 24 hr 12/05/19 12:00 12/05/19 12:46 12/05/19 12:50 Temperature 37.0 C Pulse Rate 80 83 87 Respiratory Rate 20 Blood Pressure 146/94 H Pulse Oximetry 100 12/05/19 14:00 12/05/19 16:00 12/05/19 16:11 Temperature 37.1 C Pulse Rate 79 84 88 Respiratory Rate 20 Blood Pressure 150/94 H Pulse Oximetry 100 12/05/19 18:00 12/05/19 19:47 12/05/19 20:00 Temperature 36.6 C Pulse Rate 88 84 84 Respiratory Rate 18 18 Blood Pressure 155/95 H Pulse Oximetry 95 100 12/05/19 22:00 12/05/19 23:54 12/05/19 23:58 Temperature 36.9 C Pulse Rate 84 82 81 Respiratory Rate 18 18 Blood Pressure 138/94 H Pulse Oximetry 100 100 12/06/19 01:29 12/06/19 03:55 12/06/19 04:00 Temperature 36.2 C L Pulse Rate 74 66 74 Respiratory Rate 18 18 Blood Pressure 141/94 H Pulse Oximetry 100 100 12/06/19 05:42 12/06/19 08:00 12/06/19 08:25 Temperature 36.4 C L Pulse Rate 68 65 67 Respiratory Rate 18 Blood Pressure 143/103 H Pulse Oximetry 100 12/06/19 09:16 12/06/19 10:05 Temperature Pulse Rate 79 75 Respiratory Rate Blood Pressure Pulse Oximetry Intake/Output Intake/Output: Intake & Output 12/03/19 12/04/19 12/05/19 12/06/19 23:59 23:59 23:59 23:59 Intake Total 1326 1750 Output Total 1100 500 Balance 226 1250 Meds/Results Medications: Active Medications Generic Name Dose Route Start Last Admin Trade Name Freq PRN Reason Stop Dose Admin Aspirin 325 mg 12/05/19 08:00 12/06/19 09:15 Aspirin PO 325 mg DAILY@0800 SARAH Administration Folic Acid 1 mg 12/06/19 09:00 12/06/19 09:15 Folic Acid PO 1 mg DAILY SARAH Administration Sodium Chloride 1,000 mls @ 125 mls/hr 12/05/19 07:50 12/06/19 05:16 Normal Saline Iv IV CONT 125 mls/hr .Q8H SARAH Administration Piperacillin/Tazobactam/Dextrose 3.375 gm in 50 mls @ 100 mls/hr 12/05/19 18:00 12/06/19 09:16 Zosyn 3.375 Gm/D5w 50ml Pm IVPB Infused Q6HR SARAH Infusion Levetiracetam 1,000 mg in 100 mls @ 400 mls/hr 12/05/19 21:00 12/06/19 09:32 Keppra Iv IVPB 12/06/19 12:00 Infused Q12HR SARAH Infusion Levetiracetam 750 mg 12/06/19 21:00 Keppra Tablet PO Q12HR SARAH Metoprolol Succinate 25 mg 12/05/19 11:15 12/06/19 09:16 Toprol Xl PO 25 mg QAM SARAH Administration Thiamine HCl 100 mg 12/06/19 09:00 12/06/19 09:16 Vitamin B-1 PO 100 mg DAILY SARAH Administration Radiology Results: ITS Impressions Chest X-Ray 12/05/19 14:49 IMPRESSION: 1. No acute cardiopulmonary disease. Labs Labs: L
--- NOTE | 2019-12-06 17:07 | PM.IMPN ---
Progress Note: A&P Assessment and Plan (1) Seizure disorder: Code(s): G40.909 - Epilepsy, unspecified, not intractable, without status epilepticus Status: Acute Assessment and Plan: 12/06/19 17:07 Gabriela Soriano is a 48 year old male with recent history of seizures a patient states that he ran out of his seizure medication 2 days ago and had not taken any medication he presented emergency department after he had 3 episode of seizure, was started on IV Keppra, while in the emergency department patient had atrial fibrillation with RVR he was given 10 mg IV diltiazem and started on a diltiazem drip, patient also has a history of alcohol abuse as well as illicit drug abuse in the past including cocaine which he denies at the present time but does drink alcohol to 3 beers daily, yesterday there was a concern patient may have aspirated when he was having sees start the patient on Zosyn, today patient complains of cough denies any fever or chills his white counts are elevated, however chest x-ray does not show any pneumonia, will continue antibiotics 1 more day reassess tomorrow, patient was seen by goods layer for his AFib, suggested most likely secondary to seizure activity, start the low-dose of beta-elo does not recommend anticoagulation as patient chads score is 0 (2) Atrial fibrillation with RVR: Code(s): I48.91 - Unspecified atrial fibrillation Status: Acute Assessment and Plan: Patient with new onset atrial fibrillation with RVR most likely triggered by seizures activity patient is seen by goods layer patient was started on on diltiazem drip from emergency department and patient is now in sinus rhythm, patient will have cardiac echo and further recommendation to follow (3) Polysubstance abuse: Code(s): F19.10 - Other psychoactive substance abuse, uncomplicated Status: Acute Assessment and Plan: Patient denies any illicit drug use will do the urine drug tox (4) Hypertension: Qualifiers: Hypertension type: essential hypertension Qualified Code(s): I10 - Essential (primary) hypertension Code(s): I10 - Essential (primary) hypertension Status: Acute Assessment and Plan: Will continue home regimen and monitor Subjective Date/time seen: 12/06/19 17:07 Gabriela Soriano is a 48 year old male with recent history of seizures a patient states that he ran out of his seizure medication 2 days ago and had not taken any medication he presented emergency department after he had 3 episode of seizure, was started on IV Keppra, while in the emergency department patient had atrial fibrillation with RVR he was given 10 mg IV diltiazem and started on a diltiazem drip, patient also has a history of alcohol abuse as well as illicit drug abuse in the past including cocaine which he denies at the present time but does drink alcohol to 3 beers daily, yesterday there was a concern patient may have aspirated when he was having sees start the patient on Zosyn, today patient complains of cough denies any fever or chills his white counts are elevated, however chest x-ray does not show any pneumonia, will continue antibiotics 1 more day reassess tomorrow, patient was seen by goods layer for his AFib, suggested most likely secondary to seizure activity, start the low-dose of beta-elo does not recommend anticoagulation as patient chads score is 0 Review of Systems Review of Systems: All systems reviewed & are unremarkable except as noted in HPI and below Exam Narrative: Exam Narrative: Patient appears chronically ill older than his age Const: General: comfortable and no acute distress HENMT: General nose exam: Normal nares present Eyes: Sclera: sclerae normal Neck: Neck: supple Resp: Other: Bilateral fair air entry with minimal rhonchi Cardio: Rate: regular rate Rhythm: regular rhythm GI: Auscultation: normal bowel sounds Skin: General skin exam: normal color N
[2019-12-06] MEDS: levETIRAcetam 250 MG TABLET 750 MG PO (20:19)
[2019-12-07] VITALS: PULSE 69; RESP 18; O2SAT 100
[2019-12-07] MEDS: SODIUM CHLORIDE 0.9% IV 1,000 ML 125 ML IV CONT (00:04)
[2019-12-07 01:53] VITALS: PULSE 70
[2019-12-07 04:00] VITALS: BP 153/103; PULSE 59; PULSE 60; RESP 18; TEMP 36.2; O2SAT 99
[2019-12-07 04:39] LABS: Hematocrit 35.3 % (42.0-52.0); Hemoglobin 12.4 g/dL (14.0-18.0); Mean Corpuscular HGB Conc 35.1 g/dl (32-36); Mean Corpuscular Hemoglobin 31.6 pg (26-34); Mean Corpuscular Volume 90.1 fl (80-100); Mean Platelet Volume 11.8 fl (7.4-10.4); Platelet Count Result 162 k/mm3 (150-375); Red Blood Count 3.92 M/mm3 (4.6-6.20); Red Cell Distribution Width 13.6 % (11.5-14.5)
[2019-12-07 04:56] LABS: Alanine Aminotransferase 37 U/L (4-50); Albumin Level 3.6 g/dL (3.5-5.1); Alkaline Phosphatase 49 U/L (38-126); Aspartate Amino Transferase 71 U/L (17-59); Bilirubin,Total 0.8 mg/dL (0.2-1.3); Blood Urea Nitrogen 3 mg/dL (9-20); Calcium 7.9 mg/dL (8.4-10.2); Carbon Dioxide 25 mmol/L (22-30); Chloride 105 mmol/L (98-107); Estimated CRCL calculation 110 ml/min; Estimated Glomerular Filt Rate > 60; Glucose 96 mg/dL (75-110); Potassium 3.1 mmol/L (3.4-5.0); Sodium 134 mmol/L (137-145)
[2019-12-07 05:46] VITALS: PULSE 68
[2019-12-07 08:00] VITALS: BP 145/100; PULSE 56; PULSE 58; RESP 20; TEMP 36.7; O2SAT 100
--- NOTE | 2019-12-07 09:07 | PM.DS ---
DS: Diagnosis Admitting Diagnosis Admitting Diagnosis: Unspecified atrial fibrillation Discharge Diagnosis (1) Seizure disorder: Code(s): G40.909 - Epilepsy, unspecified, not intractable, without status epilepticus Status: Acute Assessment and Plan: 12/06/19 17:07 Gabriela Soriano is a 48 year old male with recent history of seizures a patient states that he ran out of his seizure medication 2 days ago and had not taken any medication he presented emergency department after he had 3 episode of seizure, was started on IV Keppra, while in the emergency department patient had atrial fibrillation with RVR he was given 10 mg IV diltiazem and started on a diltiazem drip, patient also has a history of alcohol abuse as well as illicit drug abuse in the past including cocaine which he denies at the present time but does drink alcohol to 3 beers daily, yesterday there was a concern patient may have aspirated when he was having sees start the patient on Zosyn, today patient complains of cough denies any fever or chills his white counts are elevated, however chest x-ray does not show any pneumonia, will continue antibiotics 1 more day reassess tomorrow, patient was seen by squirrel worker for his AFib, suggested most likely secondary to seizure activity, start the low-dose of beta-elo does not recommend anticoagulation as patient chads score is 0 (2) Atrial fibrillation with RVR: Code(s): I48.91 - Unspecified atrial fibrillation Status: Acute Assessment and Plan: Patient with new onset atrial fibrillation with RVR most likely triggered by seizures activity patient is seen by squirrel worker patient was started on on diltiazem drip from emergency department and patient is now in sinus rhythm, patient will have cardiac echo and further recommendation to follow (3) Polysubstance abuse: Code(s): F19.10 - Other psychoactive substance abuse, uncomplicated Status: Acute Assessment and Plan: Patient denies any illicit drug use will do the urine drug tox (4) Hypertension: Qualifiers: Hypertension type: essential hypertension Qualified Code(s): I10 - Essential (primary) hypertension Code(s): I10 - Essential (primary) hypertension Status: Acute Assessment and Plan: Will continue home regimen and monitor DS: Summary Hospital Course Reason for hospitalization: Gabriela Soriano is a 48 year old male with recent history of seizures a patient states that he ran out of his seizure medication 2 days ago and had not taken any medication he presented emergency department after he had 3 episode of seizure, was started on IV Keppra, while in the emergency department patient had atrial fibrillation with RVR he was given 10 mg IV diltiazem and started on a diltiazem drip, patient also has a history of alcohol abuse as well as illicit drug abuse in the past including cocaine which he denies at the present time but does drink alcohol to 3 beers daily, currently patient denies any complaint of chest pain shortness of breath palpitation fever or chills Hospital Course: 12/06/19 17:07 Gabriela Soriano is a 48 year old male with recent history of seizures a patient states that he ran out of his seizure medication 2 days ago and had not taken any medication he presented emergency department after he had 3 episode of seizure, was started on IV Keppra, while in the emergency department patient had atrial fibrillation with RVR he was given 10 mg IV diltiazem and started on a diltiazem drip, patient also has a history of alcohol abuse as well as illicit drug abuse in the past including cocaine which he denies at the present time but does drink alcohol to 3 beers daily, yesterday there was a concern patient may have aspirated when he was having sees start the patient on Zosyn, today patient complains of cough denies any fever or chills his white counts are elevated, however chest x-ray does not show any pneumonia, will
[2019-12-07 09:15] VITALS: PULSE 58
[2019-12-07] MEDS: METOPROLOL SUCCINATE EXT REL 25 MG TABCR PO (09:15)
[2019-12-07] MEDS: THIAMINE HCL 100 MG TABLET PO (09:15)
[2019-12-07] MEDS: FOLIC ACID 1 MG TABLET PO (09:15)
[2019-12-07] MEDS: levETIRAcetam 250 MG TABLET 750 MG PO (09:16)
[2019-12-07] MEDS: ASPIRIN 325 MG TABLET PO (09:16)
[2019-12-07] MEDS: POTASSIUM CHLORIDE 20 MEQ TABLET 40 MEQ PO ×2 (09:17→10:07)
--- NOTE | 2019-12-07 09:42 | PM.PNCARD ---
Progress Note: A&P Assessment and Plan (1) Atrial fibrillation with RVR: Code(s): I48.91 - Unspecified atrial fibrillation Status: Acute Assessment and Plan: Continue beta-elo. Alcohol cessation and compliance of medications are recommended. (2) Seizure disorder: Code(s): G40.909 - Epilepsy, unspecified, not intractable, without status epilepticus Status: Acute Assessment and Plan: Keppra has been resumed. (3) Hypertension: Qualifiers: Hypertension type: essential hypertension Qualified Code(s): I10 - Essential (primary) hypertension Code(s): I10 - Essential (primary) hypertension Status: Acute Assessment and Plan: Will try using hypertension for both the AFib and blood pressure to reduce polypharmacy and hopefully promote compliance (4) Medically noncompliant: Code(s): Z91.19 - Patient's noncompliance with other medical treatment and regimen Status: Acute Assessment and Plan: Compliance with medications recommended (5) Polysubstance abuse: Code(s): F19.10 - Other psychoactive substance abuse, uncomplicated Status: Acute Assessment and Plan: History of drug screens positive for amphetamines and cocaine as well as cannabinoids.. Admits to 2-3 beers a day. Patient denies ever using drugs. (6) Hypokalemia: Code(s): E87.6 - Hypokalemia Status: Acute Assessment and Plan: Additional 40 mEq of p.o. potassium x1 Subjective Date/time seen: 12/07/19 09:42 Interval history: Follow-up visit with this 48-year-old man with a transient atrial fibrillation in the setting of recurrent seizures. Date of service 12/07/2019: No chest pain or shortness of breath. Feels well. Review of Systems Constitutional: Constitutional: Denies chills and Denies headache(s) Eyes: Eyes: Denies blurry vision ENT: Denies headache(s) and Denies epistaxis Cardiovascular: Cardiovascular: Denies chest pain, Denies pedal edema, Denies leg edema, Denies lightheadedness, Denies palpitations, Denies dyspnea and Denies dyspnea on exertion Respiratory: Respiratory: Denies chest congestion, Denies cough, Denies dyspnea and Denies dyspnea on exertion Gastrointestinal: Gastrointestinal: Denies abdominal pain, Denies hematochezia and Denies hematemesis Genitourinary: Genitourinary: Denies hematuria and Denies dysuria Musculoskeletal: Musculoskeletal: Denies back pain and Denies arthralgias Integumentary/Breasts: Skin/Breast: Denies rash Neurologic: Denies behavioral changes and Denies headache(s) Psychiatric: Psychiatric: Denies behavioral changes Endocrine: Endocrine: Denies palpitations Hematologic/Lymphatic: Hematologic/Lymphatic: Denies easy bleeding Allergic/Immunologic: Allergic/Immunologic: Denies itchy eyes Exam Narrative: Exam Narrative: Lean male awake, responsive and in no distress. Const: General: comfortable and no acute distress Other: Resting comfortably in bed watching television HENMT: General nose exam: no epistaxis Mouth: Yes moist mucous membranes Other: Edentulous Eyes: Sclera: sclerae normal Pupils: Equal, round and reactive pupils present Neck: Neck: supple and no JVD Thyroid: thyroid normal Carotids: no bruits Resp: Effort & Inspection: normal respiratory effort Auscultation: clear to auscultation bilaterally Cardio: Rate: regular rate Rhythm: regular rhythm Heart sounds: no murmurs Other: No murmur no gallop no rub GI: Inspection: non-distended Auscultation: normal bowel sounds Other: No hepatosplenomegaly Skin: General skin exam: normal color and no rashes or lesions noted Neuro: Cranial nerves: Yes Equal, round and reactive pupils present Cognition (Neuro): normal cognition Speech:
== END 2019-12-07 10:30 | disposition home or self-care (01) ==
LOC: ANHED 08:05 → ANHIMU 08:08
PROVIDERS: Internal Medicine Cardiovascular Disease; Admitting Provider Family Medicine; Emergency Provider Emergency Medicine; PCP Emergency Medicine; Visit Provider Family Medicine
DX: I48.91 Unspecified atrial fibrillation (principal); G40.909 Epilepsy, unspecified, not intractable, without status epilepticus; Z91.19 Patient's noncompliance with other medical treatment and regimen; E87.2 Acidosis; I10 Essential (primary) hypertension; F19.10 Other psychoactive substance abuse, uncomplicated; F17.210 Nicotine dependence, cigarettes, uncomplicated; F10.10 Alcohol abuse, uncomplicated
CPT/HCPCS: 36415; 51701; 71045; 80053; 80307; 81001; 83735; 84443; 85025; 85027; 85610; 93005; 93306; 96361; 96365; 96366; 96367; 96375; 96376; 97161; 97165; 99285; A9270; G0378; G0379; J1953; J2060; J2543; J7030

== ENCOUNTER 2020-01-28 14:33 | Inpatient (IN) | payer BC, SELFPAY ==
[2020-01-28] VITALS (40 sets, daily range): BP systolic 99–186; BP diastolic 68–112; PULSE 62–156; RESP 12–38; TEMP 36.7–38.8; O2SAT 90–100; BMI 21.6
--- NOTE | ~2020-01-28 | CT_ITS ---
EXAMINATION: CT cervical spine wo con DATE: 01/28/2020 16:27 INDICATION: Neck pain after fall. Seizures. TECHNIQUE: Computed tomography (CT) of the cervical spine was performed without intravenous contrast. The dose-length product was 958 mGy-cm. Automated exposure control and iterative reconstruction tech nique were employed. COMPARISON: None FINDINGS: Normal lordosis. Vertebral body heights are maintained. Mild cervical spondylosis. No acute fracture or traumatic malalignment. Mild degenerative changes of the uncinate and facet joints. Union toid process within normal limits. Mild emphysematous changes. There is apical pleural thickening/sca rring. No evidence for perched facet. IMPRESSION: 1. No acute abnormality of the cervical spine. Reviewed, dictated and finalized at location A.
--- NOTE | ~2020-01-28 | XR_ITS ---
EXAMINATION: XR chest 1V 01/28/2020 16:33 INDICATION: Seizure. PROCEDURE: AP view of the chest COMPARISON: Comparison to multiple prior studies sequentially, with oldest reviewed study dated 08/07. FINDINGS: The lungs are clear. The cardiomediastinal silhouette is within normal limits. There are no pleural effusions. There is no pneumothorax suspected. IMPRESSION: 1: NO ACUTE CARDIOPULMONARY DISEASE. Reviewed, dictated and finalized at location A.
--- NOTE | ~2020-01-28 | US_ITS ---
EXAMINATION: US right upper quadrant DATE: 01/29/2020 10:05 INDICATION: Abnormal liver function tests. TECHNIQUE: Multiple grayscale and Doppler ultrasound images of the abdomen were obtained. COMPARISON: CT abdomen and pelvis 10/10/2011 FINDINGS: The visualized portions of the head and body of the pancreas are normal. There is diffuse h epatic steatosis. No liver surface nodularity. The gallbladder is normal in size with a phrygian cap morphology of the fundus. No gallstones or gallbladder wall thickening. There was no sonographic Murp hy sign. The common duct is normal and measures 5 mm. IMPRESSION: 1. Diffuse hepatic steatosis. Reviewed, dictated and finalized at location A.
--- NOTE | ~2020-01-28 | CT_ITS ---
EXAMINATION: CT brain wo con DATE: 01/28/2020 16:27 INDICATION: Seizure. TECHNIQUE: Computed tomography (CT) of the head was performed without intravenous contrast. The dose- length product was 605.33 mGy-cm. The mA was adjusted according to patient size. Iterative reconstruction technique was employed. COMPARISON: 07/2019 FINDINGS: No acute intracranial hemorrhage, infarction, mass or mass effect. No ventriculomegaly or m idline shift. Basilar cisterns are patent. There are dural calcifications along the interhemispheric fissure. Mild mucosal thickening of the maxillary and ethmoid sinuses with mucoperiosteal reaction, c onsistent with chronic sinus disease. Mastoids are pneumatized. No depressed skull fractures. IMPRESSION: 1. No acute intracranial abnormality. Reviewed, dictated and finalized at location A.
--- NOTE | ~2020-01-28 | XR_ITS ---
EXAMINATION: XR chest 1V portable 01/28/2020 21:43 INDICATION: Seizure. Possible aspiration. PROCEDURE: AP portable chest COMPARISON: Comparison to multiple prior studies sequentially, with oldest reviewed study dated 12/04. FINDINGS: The lungs are clear. The cardiomediastinal silhouette is within normal limits. There are no pleural effusions. There is no pneumothorax suspected. IMPRESSION: 1: NO ACUTE CARDIOPULMONARY DISEASE. Reviewed, dictated and finalized at location A.
--- NOTE | 2020-01-28 14:58 | ECG_ITS ---
Measurements Intervals [place] Rate: 112 P: 72 WA: 148 QRS: 52 QRSD: 88 T: 55 QT: 307 QTc: 420 Interpretive Statements SINUS TACHYCARDIA BASELINE ARTIFACT- I, II, III ABNORMAL ECG Electronically Signed On 01-28-2020 17:10:20 CDT by Jose Maria Hutton D.O.
[2020-01-28] MEDS: levETIRAcetam 1000MG/NACL100ML 1,000 MG/100 ML BAG 400 MG IVPB (15:02)
[2020-01-28 15:13] LABS: Glucose Point of Care 121 (65-105)
[2020-01-28 15:24] LABS: Basophils Absolute Auto 0.1 K/mm3 (0.0-0.1); Basophils Percent Auto 0.8 % (0.2-1.2); Eosinophils Absolute Auto 0.4 K/mm3 (0-0.3); Eosinophils Percent Auto 3.7 % (0-4.4); Hematocrit 40.1 % (42.0-52.0); Hemoglobin 13.4 g/dL (14.0-18.0); Immature Granulocyte Absolute 0.01 K/mm3 (0.00-0.031); Immature Granulocyte Percent A 0.1 % (0-0.5); Lymphocytes Absolute Auto 3.84 K/mm3 (0.9-3.2); Lymphocytes Percent Auto 38.2 % (18.3-44.2); Mean Corpuscular HGB Conc 33.4 g/dl (32-36); Mean Corpuscular Hemoglobin 32.3 pg (26-34); Mean Corpuscular Volume 96.6 fl (80-100); Mean Platelet Volume 10.8 fl (7.4-10.4); Monocytes Absolute Auto 1.1 K/mm3 (0.1-0.6); Monocytes Percent Auto 10.9 % (2.6-8.5); Neutrophils Absolute Auto 4.7 K/mm3 (1.3-6.7); Neutrophils Percent Auto 46.3 % (45.5-73.1); Platelet Count Result 236 k/mm3 (150-375); Red Blood Count 4.15 M/mm3 (4.6-6.20); White Blood Count 10.1 K/mm3 (4.5-10.0)
--- NOTE | 2020-01-28 15:29 | PC.NURSE ---
Asked pt for urine sample pt said he didnt have to at the time, left urinal by bedside. NB
[2020-01-28 15:33] LABS: Prothrombin Time 12.4 Seconds (11.1-14.7)
[2020-01-28 15:34] LABS: Partial Thromboplastin Time 21.2 SECONDS (22.3-36.8)
[2020-01-28 15:37] LABS: Alanine Aminotransferase 200 U/L (4-50); Albumin Level 4.8 g/dL (3.5-5.1); Alkaline Phosphatase 97 U/L (38-126); Aspartate Amino Transferase 345 U/L (17-59); Bilirubin,Total 0.5 mg/dL (0.2-1.3); Blood Urea Nitrogen 8 mg/dL (9-20); Calcium 8.7 mg/dL (8.4-10.2); Carbon Dioxide 13 mmol/L (22-30); Chloride 107 mmol/L (98-107); Estimated CRCL calculation 84 ml/min; Estimated Glomerular Filt Rate > 60; Glucose 119 mg/dL (75-110); Lipase 140 U/L (23-300); Potassium 3.8 mmol/L (3.4-5.0); Sodium 145 mmol/L (137-145)
[2020-01-28 15:49] LABS: Troponin I < 0.012 ng/mL (0.000-0.034)
[2020-01-28 16:08] LABS: Creatine Kinase 148 U/L (55-170)
[2020-01-28 16:09] LABS: Ethanol 188 mg/dL (<10)
[2020-01-28 17:00] LABS: Amphetamine Screen Urine Negative (Negative); Barbiturate Screen Urine Negative (Negative); Benzodiazepines Screen Urine Negative (Negative); Cannabinoid Screen Urine Positive (Negative); Cocaine Screen Urine Negative (Negative); Methadone Screen Urine Negative (Negative); Opiate Screen Urine Negative (Negative); Phencyclidine Screen Urine Negative (Negative)
[2020-01-28] MEDS: SODIUM CHLORIDE 0.9% IV 1,000 ML 999 ML IV CONT (17:01)
--- NOTE | 2020-01-28 18:03 | ED.GENADULT ---
HPI - General Adult General Chief complaint: Seizure <Olu Morrison PA-C - Last Filed: 01/28/20 18:08> Stated complaint: Seizure <Olu Morrison PA-C - Last Filed: 01/28/20 18:08> Time Seen by Provider: 01/28/20 15:49 <SUMI Mackenzie Last Filed: 01/28/20 18:08> Source: patient, family and EMS <SUMI Mackenzie Last Filed: 01/28/20 18:08> Mode of arrival: EMS <Olu Morrison PA-C - Last Filed: 01/28/20 18:08> Limitations: clinical condition <Olu Morrison PA-C - Last Filed: 01/28/20 18:08> History of Present Illness HPI narrative: Patient is a 49-year-old male who presents to emergency department for evaluation of seizure activity that occurred at home patient presents with seizure which was brought under control and on arrival patient is improved toward normal mentation shortly after arrival patient had a another seizure that was witnessed as tonic-clonic seizure-like activity that was self-limited. Patient has not had his medications in approximately a week with history of seizures. Patient has been taking Keppra also with history of alcohol abuse. Patient on arrival to emergency department as noted was stable but did seize again. Patient denies any pain or complaints when he is at normal mentation. <Olu Morrison PA-C - Last Filed: 01/28/20 18:08> Related Data Allergies/adverse reactions: Allergies Allergy/AdvReac Type Severity Reaction Status Date / Time No Known Allergies Allergy Unknown Verified 12/05/19 09:29 <Olu Morrison PA-C - Last Filed: 01/28/20 18:08> Review of Systems Review of Systems: All systems reviewed & are unremarkable except as noted in HPI and below <Olu Morrison PA-C - Last Filed: 01/28/20 18:08> [facility] Past Medical History Medical History: Medical History Anxiety Hypertension Polysubstance abuse Urine drug screen positive on 08/07/2019 for amphetamines, cocaine, and cannabinoids. Urine drug screen positive on 08/24/2019 for cocaine and cannabinoids. Seizure disorder Tobacco dependence <Olu Morrison PA-C - Last Filed: 01/28/20 18:08> Surgical History Surgical History: Surgical History No history of previous surgery <Olu Morrison PA-C - Last Filed: 01/28/20 18:08> Family History Family History: Family History Mother Acute myocardial infarction Grandparent Acute myocardial infarction Father Unknown family medical history <Olu Morrison PA-C - Last Filed: 01/28/20 18:08> Social History Social History: Social History Social History: The patient lives in [place] with his fiancee. 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 He has smoked up to 1 pack of cigarettes per day for at least 20 years. He drinks 2 to 3 beers, several nights a week. He denies ever having any alcohol withdrawal symptoms. He admits to smoking marijuana daily. He uses cocaine recreationally, few times a week. He denies having ever used amphetamines however drug screen on 08/07/2019 was positive for amphetamines in addition to cocaine and cannabinoids. He assumes that his cocaine must have been contaminated with amphetamines. Smoking packs per day: 0.5 Smoking cigarettes per day: 10.0 Years smoked: 15 Smoking pack-years: 7.50 Smoking status: Current every day smoker Tobacco type: cigarettes Second hand tobacco smoke exposure: Yes Alcohol intake: current Drinks per week: 21 Substance use: former Substance use type: marijuana and crack/cocaine Gender identity (if verbalized by the patient): Male Agree to blood products: Yes <Olu Morrison PA-C - Last Filed: 01/28/20 18:08> E
[2020-01-28 19:24] LABS: Lactic Acid Reflex 15.2 mmol/L (0.7-2.1)
[2020-01-28 19:25] LABS: Reflex Lactic Acid Yes or No Add Lactic
--- NOTE | 2020-01-28 20:58 | ADMGEN ---
This patient, Gabriela Soriano, was admitted to 2 Medical Room 252-01. Patient/family oriented to hospital policies and general routines including ID bracelet, bed and alarms, visiting hours, pain management, procedures, bathroom and other care routines, personal items, smoking policy, room service/diet, and visiting hours. Valuables list has been completed. Information on how to activate the Rapid Response Team has been discussed. Patient/Family are encouraged to report perceived risks to care and to ask questions if they do not understand what they are told or what they should do.
--- NOTE | 2020-01-28 21:45 | PM.IMHP ---
H&P: HPI History of Present Illness Chief complaint: Seizure/alcohol abuse Narrative: This is a 49 year old Af[place]an [place] Citizen with known Seizure disorder, alcohol abuse and polysubstance abuse disorder who is well known to our Hospitalist service for multiple admissions and who presented to the hospital with a complaint of suffering a seizure at home. While in the ER tonight the patient suffered another seizure. The patient had reported that he has not had his seizure medications for over a week now. The patient has a history of alcohol abuse and his alcohol level was 188 in the ER today. Shortly after the patient arrived to the medical floor tonight the patient suffered another generalized clonic tonic seizure and a rapid response was called overhead. On my arrival to bedside I administered Ativan IV and the patient shaking appears to have stopped but he is unresponsive and in a deep postictal state at this time. No other history is obtainable from the patient. Review of Systems Review of Systems: ROS unobtainable: Yes unobtainable due to medical condition PMFSH Past Medical History Medical History Anxiety Hypertension Polysubstance abuse Urine drug screen positive on 08/07/2019 for amphetamines, cocaine, and cannabinoids. Urine drug screen positive on 08/24/2019 for cocaine and cannabinoids. Seizure disorder Tobacco dependence Surgical History Surgical History No history of previous surgery Family History Family History Mother Acute myocardial infarction Grandparent Acute myocardial infarction Father Unknown family medical history Social History Social History Social History: The patient lives in [place] with his mayte. 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 He has smoked up to 1 pack of cigarettes per day for at least 20 years. He drinks 2 to 3 beers, several nights a week. He denies ever having any alcohol withdrawal symptoms. He admits to smoking marijuana daily. He uses cocaine recreationally, few times a week. He denies having ever used amphetamines however drug screen on 08/07/2019 was positive for amphetamines in addition to cocaine and cannabinoids. He assumes that his cocaine must have been contaminated with amphetamines. Smoking packs per day: 0.5 Smoking cigarettes per day: 10.0 Years smoked: 15 Smoking pack-years: 7.50 Smoking status: Smoker, status unknown Tobacco type: cigarettes Second hand tobacco smoke exposure: Yes Alcohol intake: current Drinks per week: 21 Substance use: former Substance use type: marijuana and crack/cocaine Gender identity (if verbalized by the patient): Male Agree to blood products: Yes Meds Home Medications and Allergies Home Medications Medication Instructions Recorded Confirmed Type folic acid 1 mg PO DAILY #30 tablet 08/26/19 01/29/20 Rx aspirin 325 mg PO DAILY@0800 #30 tablet 12/07/19 01/29/20 Rx levetiracetam 750 mg PO Q12HR #60 tablet 12/07/19 01/29/20 Rx metoprolol succinate [Toprol XL] 25 mg PO QAM #30 tablet 12/07/19 01/29/20 Rx thiamine HCl (vitamin B1) [Vitamin 100 mg PO DAILY #30 tablet 12/07/19 01/29/20 Rx B-1] Allergies Allergy/AdvReac Type Severity Reaction Status Date / Time No Known Allergies Allergy Unknown Verified 12/05/19 09:29 Vital Signs Vital Signs - 24 hr 01/28/20 14:36 01/28/20 14:43 01/28/20 14:46 Temperature 36.7 C Pulse Rate 100 92 Respiratory Rate 15 15 Blood Pressure 142/97 H 131/90 Pulse Oximetry 100 99 98 01/28/20 14:47 01/28/20 14:51 01/28/20 14:52 Temperature Pulse Rate 96 90 Respiratory Rate 12 Blood Pressure Pulse Oximetry 99 99 01/28/20 15:00 01/28/20 15:01 01/28/20 15:15 Temperatur
[2020-01-28 21:58] LABS: Alanine Aminotransferase 188 U/L (4-50); Albumin Level 4.5 g/dL (3.5-5.1); Alkaline Phosphatase 87 U/L (38-126); Aspartate Amino Transferase 284 U/L (17-59); Bilirubin,Total 0.7 mg/dL (0.2-1.3); Blood Urea Nitrogen 6 mg/dL (9-20); Calcium 8.1 mg/dL (8.4-10.2); Carbon Dioxide 10 mmol/L (22-30); Chloride 106 mmol/L (98-107); Estimated CRCL calculation 104 ml/min; Estimated Glomerular Filt Rate > 60; Glucose 119 mg/dL (75-110); Magnesium 1.7 mg/dL (1.6-2.3); Phosphorus 2.8 mg/dL (2.5-4.5); Potassium 4.1 mmol/L (3.4-5.0); Sodium 138 mmol/L (137-145)
--- NOTE | 2020-01-28 22:04 | PC.NURSE ---
Pt began seizure activity at 2100 shortly after starting admission process.
[2020-01-28 22:06] LABS: Glucose Point of Care 138 (65-105)
--- NOTE | 2020-01-28 22:06 | PC.NURSE ---
Pt transferred to ICU 8 bedside report given to Jaclyn. Paperwork and belongings sent with patient.
[2020-01-28 22:11] LABS: Lactic Acid 13.3 mmol/L (0.7-2.1)
[2020-01-28] MEDS: levETIRAcetam 500MG/NACL 100ML 500 MG/100 ML BAG 400 MG IVPB (22:52)
[2020-01-28] MEDS: FAMOTIDINE 20 MG/2 ML VIAL IV PUSH (22:56)
[2020-01-29] VITALS (12 sets, daily range): BP systolic 118–170; BP diastolic 89–113; PULSE 57–85; RESP 14–18; TEMP 36.3–37.8; O2SAT 99–100
[2020-01-29 00:35] LABS: Glucose Point of Care 136 (65-105)
--- NOTE | 2020-01-29 01:05 | PC.NURSE ---
This patient, Gabriela Soriano, was received from [address] [place] [address] on 01/28/20 at 2200. Personal belongings list checked and signed. Patient/family oriented to unit policies and routines
--- NOTE | 2020-01-29 01:06 | ADMGEN ---
This patient, Gabriela Soriano, was admitted to Intensive Care Unit-8. Patient/family oriented to hospital policies and general routines including ID bracelet, bed and alarms, visiting hours, pain management, procedures, bathroom and other care routines, personal items, smoking policy, room service/diet, and visiting hours. Valuables list has been completed. Information on how to activate the Rapid Response Team has been discussed. Patient/Family are encouraged to report perceived risks to care and to ask questions if they do not understand what they are told or what they should do. Patient on floor at 2039
[2020-01-29 04:38] LABS: Basophils Absolute Auto 0.1 K/mm3 (0.0-0.1); Basophils Percent Auto 0.4 % (0.2-1.2); Hematocrit 35.1 % (42.0-52.0); Hemoglobin 12.4 g/dL (14.0-18.0); Immature Granulocyte Absolute 0.06 K/mm3 (0.00-0.031); Immature Granulocyte Percent A 0.4 % (0-0.5); Mean Corpuscular HGB Conc 35.3 g/dl (32-36); Mean Corpuscular Hemoglobin 32.4 pg (26-34); Mean Corpuscular Volume 91.6 fl (80-100); Mean Platelet Volume 11.7 fl (7.4-10.4); Monocytes Absolute Auto 0.9 K/mm3 (0.1-0.6); Monocytes Percent Auto 5.8 % (2.6-8.5); Neutrophils Absolute Auto 13.8 K/mm3 (1.3-6.7); Neutrophils Percent Auto 85.4 % (45.5-73.1); Platelet Count Result 205 k/mm3 (150-375); Red Blood Count 3.83 M/mm3 (4.6-6.20); Red Cell Distribution Width 14.4 % (11.5-14.5); White Blood Count 16.2 K/mm3 (4.5-10.0)
[2020-01-29 04:54] LABS: Blood Urea Nitrogen 8 mg/dL (9-20); Calcium 8.2 mg/dL (8.4-10.2); Carbon Dioxide 25 mmol/L (22-30); Chloride 104 mmol/L (98-107); Estimated CRCL calculation 120 ml/min; Estimated Glomerular Filt Rate > 60; Glucose 144 mg/dL (75-110); Sodium 134 mmol/L (137-145)
[2020-01-29] MEDS: LACTATED RINGERS 1,000 ML 125 ML IV CONT ×3 (05:46→15:30)
[2020-01-29 08:27] LABS: Lactic Acid Reflex 1.3 mmol/L (0.7-2.1)
[2020-01-29] MEDS: FAMOTIDINE 20 MG/2 ML VIAL IV PUSH ×2 (08:31→20:36)
[2020-01-29] MEDS: SODIUM CHLORIDE 0.9% IV 1,000 ML 999 ML IV CONT (08:31)
[2020-01-29] MEDS: levETIRAcetam 500MG/NACL 100ML 500 MG/100 ML BAG 400 MG IVPB ×2 (08:31→21:06)
--- NOTE | 2020-01-29 08:52 | PM.IMPN ---
Progress Note: A&P Assessment and Plan (1) Acute encephalopathy: Code(s): G93.40 - Encephalopathy, unspecified Status: Acute Assessment and Plan: The patient was postictal and poorly responsive after seizure. CT brain WNL. Patient is slowly improving. Continue to monitor clinically. (2) Recurrent seizures: Code(s): G40.909 - Epilepsy, unspecified, not intractable, without status epilepticus Status: Acute Assessment and Plan: The patient noncompliant with his Keppra at home. The patient has been loaded with Keppra IV in the ER and continues on IV Keppra here. Continue Seizure and Aspiration precautions. Ativan IV available for any acute seizure. Neurology, Dr. Sen has been consulted. Increase activity level (3) Fever: Code(s): R50.9 - Fever, unspecified Status: Acute Assessment and Plan: Temperature 101.9? overnight. Could be related seizures. Chest x-ray is clear. No UA but urine culture collected. Follow up on blood cultures. Antibiotics on hold. (4) Acidosis, lactic: Code(s): E87.2 - Acidosis Status: Acute Assessment and Plan: Lactic acid level 15.2. Likely secondary to acute seizures. Reflex lactic acid level normal. Continue IV hydration. (5) Elevated LFTs: Code(s): R79.89 - Other specified abnormal findings of blood chemistry Status: Chronic Assessment and Plan: LFTs elevated admission but improved today. Most likely related to his alcohol use. Check hepatitis panel. Check RUQ US (6) Hypertension: Qualifiers: Hypertension type: essential hypertension Qualified Code(s): I10 - Essential (primary) hypertension Code(s): I10 - Essential (primary) hypertension Status: Chronic Assessment and Plan: Blood pressure reviewed on 01/29/2020. Blood pressure reasonably well controlled now. Continue to monitor. Resume metoprolol when able. (7) Polysubstance abuse: Code(s): F19.10 - Other psychoactive substance abuse, uncomplicated Status: Chronic Assessment and Plan: Hx of polysubstance abuse. Patient denies recent drug use. UDS came back positive for cannabis only. (8) Medically noncompliant: Code(s): Z91.19 - Patient's noncompliance with other medical treatment and regimen Status: Acute Assessment and Plan: Patient has been educated about the benefits of remaining compliant with his medications. (9) Alcoholism: Code(s): F10.20 - Alcohol dependence, uncomplicated Status: Acute Assessment and Plan: Patient with history of alcoholism. Currently on Precedex. Will add thiamine and folate. Ativan available as needed for signs or symptoms of withdrawal. CIWA score elevated overnight but better this morning. Continue CIWA protocol. (10) Alcohol intoxication: Qualifiers: Complication of substance-induced condition: with unspecified complication Qualified Code(s): F10.929 - Alcohol use, unspecified with intoxication, unspecified Code(s): F10.929 - Alcohol use, unspecified with intoxication, unspecified Status: Acute Assessment and Plan: Level elevated at 188. Alcohol use as detailed above. Subjective Date/time seen: 01/29/20 08:52 Interval history: 49yo male with known hx of seizures and alcoholism here for seizures. Assuming care. Chart reviewed. Patient has been out of his seizure medications for at least a week. he states that he ran out. He continues to drink daily mostly 3-4 12oz beers per day but also drinks 1/2pint vodak daily 3-4x/week. Denies recent drug use except marijuana (since July). Feels better today. Denies n/v. No headache or sore throat. No CP or abd pain. Denies muscle aches. Slept well. Exam Narrative: Exam Narrative: Tm 101.9 97.4 129/89 59 14 100% ra Gen - NARD Chest - few scattered rhonchi, distatn BS CV - RRR S1/S
[2020-01-29] MEDS: THIAMINE HCL 200 MG/2 ML VIAL 100 MG IV PUSH (10:50)
[2020-01-29] MEDS: hydrALAZINE HCL 20 MG/ML VIAL 10 MG IV PUSH (10:51)
[2020-01-29] MEDS: FOLIC ACID 1 MG/0.2 ML INJ IV PUSH (10:58)
--- NOTE | 2020-01-29 11:32 | PC.NURSE ---
Precede titrated from 0.4mcg-kg-hr to 0.2 mcg-kg-hr per Dr. Arreola at 1048 on 01/29/20.
[2020-01-29 12:07] LABS: Glucose Point of Care 101 (65-105)
[2020-01-29 12:28] LABS: Hepatitis B Surface Antigen Negative (Negative)
[2020-01-29 12:49] LABS: HAV RESULT Negative (Negative); Hepatitis B Core IgM Result Negative (Negative); Hepatitis C Virus Antibody Negative (Negative)
--- NOTE | 2020-01-29 13:16 | WPDCNINT ---
Assessment and Plan Assessment and plan (1) Acute encephalopathy: Code(s): G93.40 - Encephalopathy, unspecified Status: Acute Assessment and Plan: Patient with acute encephalopathy status post seizure activity, likely postictal state. Patient was poorly responsive and was transferred to the ICU for further management. Patient was slightly agitated and combative requiring Precedex overnight -Precedex being weaned today -patient is more awake, alert, oriented and follows simple commands (2) Recurrent seizures: Code(s): G40.909 - Epilepsy, unspecified, not intractable, without status epilepticus Status: Acute Assessment and Plan: Patient with recurrent seizures, has not taken his seizure medications for almost 2 week per ER notes. -currently on Keppra IV and IV Ativan p.r.n. -appreciate Neurology evaluation recommendation -pneumo seizure activity while patient in the ICU (3) Fever: Qualifiers: Fever type: unspecified Qualified Code(s): R50.9 - Fever, unspecified Code(s): R50.9 - Fever, unspecified Status: Acute Assessment and Plan: Likely due to seizures, will continue to monitor -chest x-ray is clear -will follow-up on blood cultures (4) Acidosis, lactic: Code(s): E87.2 - Acidosis Status: Acute Assessment and Plan: Lactic acids with 13.3 post seizures, this morning lactic acid is 1.3 - (5) Elevated LFTs: Code(s): R79.89 - Other specified abnormal findings of blood chemistry Status: Chronic Assessment and Plan: Elevated LFTs, improved this morning. Most likely related to alcohol abuse, hepatitis panel has been negative -right upper quadrant ultrasound on 01/29/2020 shows diffuse hepatic steatosis (6) Alcoholism: Code(s): F10.20 - Alcohol dependence, uncomplicated Status: Acute Assessment and Plan: Patient with history of alcoholism, continue folic acid and thiamine -started patient on Librium -will wean Precedex infusion to off -patient on CIWA protocol (7) Hypertension: Qualifiers: Hypertension type: essential hypertension Qualified Code(s): I10 - Essential (primary) hypertension Code(s): I10 - Essential (primary) hypertension Status: Chronic Assessment and Plan: Started patient on hydralazine p.r.n. -will start his p.o. meds after speech evaluates for swallow test (8) Polysubstance abuse: Code(s): F19.10 - Other psychoactive substance abuse, uncomplicated Status: Chronic Assessment and Plan: Urine tox screen was positive cannabis -alcohol levels were positive -continue to monitor Additional Plan Discussed with patient updated him with his condition and plan of care Code status: Full code Critical care time spent: 43 minutes Due to a high probability of clinically significant, life threatening deterioration, the patient required my highest level of preparedness to intervene emergently and I personally spent this critical care time directly and personally managing the patient. This critical care time included obtaining a history; examining the patient; pulse oximetry; ordering and review of studies; arranging urgent treatment with development of a management plan; evaluation of patient's response to treatment; frequent reassessment; and discussions with other providers. It was exclusive of separately billable procedures and treating other patients and teaching time. Please see Assessment and Plan section and the rest of the note for further information on patient assessment and treatment [employer] Consult Note Consult date: 01/29/20 Time Seen: 07:14 Reason for consult: Seizures, acute encephalopathy, fevers, lactic acidosis HPI: Gabriela Carly Soriano is a 49 year old male with past medical history of anxiety, hypertension, polysubstance abuse, seizure disorder, alcohol abuse, tobacco dependence present to the ED on 01/28/2020 after having a s
--- NOTE | 2020-01-29 13:38 | PCSTNOTE ---
Please refer to the Bedside Swallow Evaluation in the EMR. ST-- Bedside swallow evaluation was performed today; patient is functioning at his prior level (re swallow) thus skilled ST services are not required at this time.
--- NOTE | 2020-01-29 14:08 | WPDNEURCNPN ---
Assessment and Plan Assessment and plan (1) Fever: Qualifiers: Fever type: unspecified Qualified Code(s): R50.9 - Fever, unspecified Code(s): R50.9 - Fever, unspecified Status: Acute (2) Alcoholism: Code(s): F10.20 - Alcohol dependence, uncomplicated Status: Acute (3) Acute encephalopathy: Code(s): G93.40 - Encephalopathy, unspecified Status: Acute (4) Recurrent seizures: Code(s): G40.909 - Epilepsy, unspecified, not intractable, without status epilepticus Status: Acute (5) Metabolic acidosis: Code(s): E87.2 - Acidosis Status: Acute (6) Seizure disorder: Code(s): G40.909 - Epilepsy, unspecified, not intractable, without status epilepticus Status: Acute (7) Alcohol intoxication: Qualifiers: Complication of substance-induced condition: with unspecified complication Qualified Code(s): F10.929 - Alcohol use, unspecified with intoxication, unspecified Code(s): F10.929 - Alcohol use, unspecified with intoxication, unspecified Status: Acute (8) Acidosis, lactic: Code(s): E87.2 - Acidosis Status: Acute (9) Elevated LFTs: Code(s): R79.89 - Other specified abnormal findings of blood chemistry Status: Chronic (10) Focal seizure: Code(s): R56.9 - Unspecified convulsions Status: Acute (11) Seizure disorder: Code(s): G40.909 - Epilepsy, unspecified, not intractable, without status epilepticus Status: Acute (12) Medically noncompliant: Code(s): Z91.19 - Patient's noncompliance with other medical treatment and regimen Status: Acute (13) DVT prophylaxis: Code(s): Z29.9 - Encounter for prophylactic measures, unspecified Status: Acute (14) Polysubstance abuse: Code(s): F19.10 - Other psychoactive substance abuse, uncomplicated Status: Chronic (15) Hypertension: Qualifiers: Hypertension type: essential hypertension Qualified Code(s): I10 - Essential (primary) hypertension Code(s): I10 - Essential (primary) hypertension Status: Chronic Additional Plan please continue the medical management as being done the patient is counseling for and for his chronic alcoholism Consult date: 01/29/20 Time Seen: 14:00 HPI: Gabriela Soriano is a 49 year old male was admitted because of the seizures and has a history of chronic alcoholism he is in the ICU denies any headache nausea vomiting chest pain shortness of breath fever chills sore throat he is noncompliant and have seizures and of course has chronic alcoholism Review of Systems Review of Systems: All systems reviewed & are unremarkable except as noted in HPI and below PMFSH Past Medical History Medical History Anxiety Hypertension Polysubstance abuse Urine drug screen positive on 08/07/2019 for amphetamines, cocaine, and cannabinoids. Urine drug screen positive on 08/24/2019 for cocaine and cannabinoids. Seizure disorder Tobacco dependence Surgical History Surgical History No history of previous surgery Family History Family History Mother Acute myocardial infarction Grandparent Acute myocardial infarction Father Unknown family medical history Social History Social History Social History: The patient lives in [place] with his mayte. 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 He has smoked up to 1 pack of cigarettes per day for at least 20 years. He drinks 2 to 3 beers, several nights a week. He denies ever having any alcohol withdrawal symptoms. He admits to smoking marijuana daily. He uses cocaine recreationally, few times a week. He denies having ever used amphetamines however drug screen o
[2020-01-29] MEDS: chlordiazePOXIDE 25 MG CAPSULE 50 MG PO ×3 (14:09→23:24)
[2020-01-29] MEDS: METOPROLOL SUCCINATE EXT REL 25 MG TABCR PO (16:04)
--- NOTE | 2020-01-29 18:10 | PC.NURSE ---
This patient, Gabriela Soriano, was transferred to [[id number]] on 01/29/20 at 1810. Personal belongings sent with patient. Belongings list checked. Report given to [Anuel POOL]. Appropriate documentation sent with patient.
--- NOTE | 2020-01-29 18:53 | PC.NURSE ---
This patient, Gabriela Soriano, was received from ICU on 01/29/20 at 1853. Personal belongings list checked and signed. Patient/family oriented to unit policies and routines
[2020-01-30] VITALS: BP 151/95; PULSE 76; PULSE 82; PULSE 84; RESP 18; TEMP 36.8; O2SAT 100
[2020-01-30] MEDS: LACTATED RINGERS 1,000 ML 125 ML IV CONT (03:19)
[2020-01-30 04:00] VITALS: BP 145/94; PULSE 75; PULSE 78; RESP 18; TEMP 36.6; O2SAT 100
[2020-01-30] MEDS: chlordiazePOXIDE 25 MG CAPSULE 50 MG PO (05:28)
[2020-01-30 07:30] LABS: Basophils Percent Auto 0.2 % (0.2-1.2); Eosinophils Absolute Auto 0.2 K/mm3 (0-0.3); Eosinophils Percent Auto 1.6 % (0-4.4); Hematocrit 34.3 % (42.0-52.0); Hemoglobin 12.2 g/dL (14.0-18.0); Immature Granulocyte Absolute 0.07 K/mm3 (0.00-0.031); Immature Granulocyte Percent A 0.5 % (0-0.5); Lymphocytes Absolute Auto 2.63 K/mm3 (0.9-3.2); Lymphocytes Percent Auto 19.6 % (18.3-44.2); Mean Corpuscular HGB Conc 35.6 g/dl (32-36); Mean Corpuscular Hemoglobin 32.4 pg (26-34); Mean Platelet Volume 12.2 fl (7.4-10.4); Monocytes Percent Auto 7.2 % (2.6-8.5); Neutrophils Absolute Auto 9.5 K/mm3 (1.3-6.7); Neutrophils Percent Auto 70.9 % (45.5-73.1); Platelet Count Result 195 k/mm3 (150-375); Red Blood Count 3.77 M/mm3 (4.6-6.20); Red Cell Distribution Width 13.8 % (11.5-14.5); White Blood Count 13.4 K/mm3 (4.5-10.0)
[2020-01-30 07:44] LABS: Alanine Aminotransferase 141 U/L (4-50); Alkaline Phosphatase 73 U/L (38-126); Aspartate Amino Transferase 108 U/L (17-59); Blood Urea Nitrogen 2 mg/dL (9-20); Calcium 8.7 mg/dL (8.4-10.2); Carbon Dioxide 25 mmol/L (22-30); Chloride 99 mmol/L (98-107); Estimated CRCL calculation 128 ml/min; Estimated Glomerular Filt Rate > 60; Glucose 90 mg/dL (75-110); Magnesium 1.6 mg/dL (1.6-2.3); Phosphorus 2.2 mg/dL (2.5-4.5); Potassium 3.1 mmol/L (3.4-5.0); Sodium 132 mmol/L (137-145)
--- NOTE | 2020-01-30 08:10 | PM.DS ---
DS: Admitting Diagnosis Admitting Diagnosis Admitting Diagnosis: Encephalopathy, unspecified DS: Discharge Diagnosis Discharge Diagnosis (1) Acute encephalopathy: Code(s): G93.40 - Encephalopathy, unspecified Status: Acute Assessment and Plan: The patient was postictal and poorly responsive after seizure. CT brain WNL. Patient's mental status returned to normal. Patient alert and appropriate. He wishes to sign out against medical. Explained that he needs to stay due to concern for infection. Exlained by leaving, that he puts his health at risk to include but not limited to respiratory distress and even . He voices understanding. (2) Recurrent seizures: Code(s): G40.909 - Epilepsy, unspecified, not intractable, without status epilepticus Status: Acute Assessment and Plan: The patient noncompliant with his Keppra at home. The patient has been loaded with Keppra IV in the ER and was continued on IV Keppra here. Seizure and Aspiration precautions started. Ativan IV was available for any acute seizure. Neurology, Dr. Sen has been consulted. (3) Fever: Qualifiers: Fever type: unspecified Qualified Code(s): R50.9 - Fever, unspecified Code(s): R50.9 - Fever, unspecified Status: Acute Assessment and Plan: Temperature 101.9? overnight. Could be related seizures. Chest x-ray was clear. No UA but urine culture negative. Blood cultures no growth. Antibiotics held. WBC level however climbed to 16K. (4) Acidosis, lactic: Code(s): E87.2 - Acidosis Status: Acute Assessment and Plan: Lactic acid level 15.2. Likely secondary to acute seizures. Reflex lactic acid level normal. (5) Elevated LFTs: Code(s): R79.89 - Other specified abnormal findings of blood chemistry Status: Chronic Assessment and Plan: LFTs elevated admission but improved on repeat. Most likely related to his alcohol use. Hepatitis panel negative. RUQ US showing diffuse steatosis (6) Hypertension: Qualifiers: Hypertension type: essential hypertension Qualified Code(s): I10 - Essential (primary) hypertension Code(s): I10 - Essential (primary) hypertension Status: Chronic Assessment and Plan: Blood pressure monitored. Blood pressure reasonably well controlled. Metoprolol resumed (7) Polysubstance abuse: Code(s): F19.10 - Other psychoactive substance abuse, uncomplicated Status: Chronic Assessment and Plan: Hx of polysubstance abuse. Patient denies recent drug use. UDS came back positive for cannabis only. He was educated about the benefits of abstaining from drug use. (8) Medically noncompliant: Code(s): Z91.19 - Patient's noncompliance with other medical treatment and regimen Status: Acute Assessment and Plan: Patient has been educated about the benefits of remaining compliant with his medications. (9) Alcoholism: Code(s): F10.20 - Alcohol dependence, uncomplicated Status: Acute Assessment and Plan: Patient with history of alcoholism. Treated with Precedex. Thiamine and folate added. Ativan was available as needed for signs or symptoms of withdrawal. CIWA score elevated early on but improved (10) Alcohol intoxication: Qualifiers: Complication of substance-induced condition: with unspecified complication Qualified Code(s): F10.929 - Alcohol use, unspecified with intoxication, unspecified Code(s): F10.929 - Alcohol use, unspecified with intoxication, unspecified Status: Acute Assessment and Plan: Level elevated at 188. DS: Summary Hospital Course Reason for hospitalization: 49yo male here for seizures. Please see H&P for details. Hospital Course: As above Time Spent with Patient Time attestation: Total time spent providing and/or coordinating discharge services: 32 minut
== END 2020-01-30 08:00 | disposition left against medical advice (07) | DRG 52 ==
LOC: ANHED 18:19 → ANH2MED 18:39 → ANHICU 21:40 → ANH2MED 01-29 18:41
PROVIDERS: Emergency Medicine Emergency Medical Services; Family Medicine; Internal Medicine; Admitting Provider Family Medicine; Emergency Provider Emergency Medicine; PCP Emergency Medicine; Visit Provider Internal Medicine
DX: G93.40 Encephalopathy, unspecified (principal); G40.909 Epilepsy, unspecified, not intractable, without status epilepticus; F10.229 Alcohol dependence with intoxication, unspecified; T42.6X6A Underdosing of other antiepileptic and sedative-hypnotic drugs, initial encounter; Z91.128 Patient's intentional underdosing of medication regimen for other reason; R50.9 Fever, unspecified; F14.10 Cocaine abuse, uncomplicated; Y90.6 Blood alcohol level of 120-199 mg/100 ml; I10 Essential (primary) hypertension; E87.2 Acidosis; R79.89 Other specified abnormal findings of blood chemistry; F12.10 Cannabis abuse, uncomplicated; F17.210 Nicotine dependence, cigarettes, uncomplicated
CPT/HCPCS: 36415; 70450; 71045; 72125; 76705; 80048; 80053; 80074; 80307; 82550; 82948; 83605; 83690; 83735; 84100; 84484; 85025; 85610; 85730; 87040; 87086; 92610; 93005; 96361; 96365; 96366; 96367; 96368; 96375; 96376; 99291; A9270; G0378; G0379; J0360; J1953; J2060; J3411; J3475; J7030; J7120; J7121

== ENCOUNTER 2020-03-06 12:04 | Observation (INO) | payer BC, SELFPAY ==
[2020-03-06] VITALS (15 sets, daily range): BP systolic 133–148; BP diastolic 86–105; PULSE 87–132; RESP 16–26; TEMP 37.2–39.5; O2SAT 96–100; BMI 21.2
--- NOTE | ~2020-03-06 | XR_ITS ---
EXAMINATION: XR chest 1V portable DATE: 03/06/2020 INDICATION: Seizure. TECHNIQUE: A single frontal view of the chest was obtained. COMPARISON: Chest single view 01/28/2020 FINDINGS: The chest demonstrates clear lungs without pneumonia, pleural effusion, or pneumothorax. Th e heart size is normal. IMPRESSION: 1. No acute cardiopulmonary disease. Reviewed, dictated and finalized at location B.
--- NOTE | ~2020-03-06 | CT_ITS ---
EXAMINATION: CT brain wo con DATE: 03/06/2020 13:30 INDICATION: Seizure. TECHNIQUE: Computed tomography (CT) of the head was performed without intravenous contrast. The mA wa s adjusted according to patient size. Iterative reconstruction technique was employed. The dose-lengt h product was 605.33 mGy-cm. COMPARISON: Head CT 01/28/2020 FINDINGS: There is no intracranial hemorrhage, acute infarction, or abnormal intracranial mass lesion . The ventricles are normal in size. The orbits are normal. There is mild mucosal thickening in the p aranasal sinuses. There is a small left mastoid effusion. IMPRESSION: 1. Normal brain. Reviewed, dictated and finalized at location B. IMPRESSION: 1. Normal brain.
--- NOTE | 2020-03-06 12:38 | ECG_ITS ---
Measurements Intervals [place] Rate: 135 P: 81 GA: 150 QRS: 61 QRSD: 88 T: 62 QT: 293 QTc: 439 Interpretive Statements SINUS TACHYCARDIA ABNORMAL ECG Electronically Signed On 03-06-2020 14:26:03 CDT by Jose Maria Hutton D.O.
--- NOTE | 2020-03-06 12:39 | PC.NURSE ---
Ezra HILL in patients room witness seizure, verbal order recieved to administer ativan 1 mg IVP at this time for snoring respirations.
--- NOTE | 2020-03-06 12:42 | PC.NURSE ---
Placed on 2 Li NC at this time for oxygen level 91% on room air.
--- NOTE | 2020-03-06 12:45 | PC.NURSE ---
Administered keppra 500 mg IV at this time x 2 doses to equal 1000mg. Patient continue with snoring respirations even after sternal rub.
[2020-03-06 12:55] LABS: Glucose Point of Care 148 (65-105)
[2020-03-06 13:03] LABS: Base Excess ABG -18.6 mEq/l (+/-2.0); Carboxyhemoglobin 2.3 % THb (0-2.0); Fractional Inspired Oxygen 28 %; HCO3 ABG 9.8 mEq/l (22.0-26.0); Methemoglobin ABG 0.5 %THb (0-1.5); Oxygen Content ABG 18.8 %vol (16.0-22.0); Oxygen Saturation ABG 95.2 % (95.0-100.0); Oxyhemoglobin 92.2 % THb (90.0-100.0); PCO2 ABG 31.7 mmHg (35.0-45.0); PO2 ABG 99.2 mmHg (80.0-100.0); PO2 FiO2 Ratio Arterial Blood 3.54 %; Total Hemoglobin 14.4 g/dL (12.0-18.0)
[2020-03-06 13:05] LABS: Device NASAL CANNULA; Modified Allen's Test Pass; Site Drawn RIGHT RADIAL; pH ABG 7.108 (7.350-7.450)
[2020-03-06 13:13] LABS: Basophils Absolute Auto 0.1 K/mm3 (0.0-0.1); Basophils Percent Auto 0.7 % (0.2-1.2); Eosinophils Percent Auto 0.4 % (0-4.4); Hemoglobin 13.6 g/dL (14.0-18.0); Immature Granulocyte Absolute 0.02 K/mm3 (0.00-0.031); Immature Granulocyte Percent A 0.2 % (0-0.5); Lymphocytes Absolute Auto 3.37 K/mm3 (0.9-3.2); Lymphocytes Percent Auto 41.5 % (18.3-44.2); Mean Corpuscular HGB Conc 33.2 g/dl (32-36); Mean Corpuscular Hemoglobin 32.1 pg (26-34); Mean Corpuscular Volume 96.7 fl (80-100); Mean Platelet Volume 11.6 fl (7.4-10.4); Monocytes Absolute Auto 0.6 K/mm3 (0.1-0.6); Monocytes Percent Auto 7.8 % (2.6-8.5); Neutrophils Percent Auto 49.4 % (45.5-73.1); Platelet Count Result 145 k/mm3 (150-375); Red Blood Count 4.24 M/mm3 (4.6-6.20); Red Cell Distribution Width 14.8 % (11.5-14.5); White Blood Count 8.1 K/mm3 (4.5-10.0)
[2020-03-06 13:22] LABS: Prothrombin Time 13.3 Seconds (11.1-14.7)
[2020-03-06 13:23] LABS: Partial Thromboplastin Time 26.4 SECONDS (22.3-36.8)
[2020-03-06 13:26] LABS: Anion Gap 27 mmol/L (8-16); Blood Urea Nitrogen 4 mg/dL (9-20); Calcium 8.2 mg/dL (8.4-10.2); Carbon Dioxide 10 mmol/L (22-30); Chloride 103 mmol/L (98-107); Estimated CRCL calculation 91 ml/min; Estimated Glomerular Filt Rate > 60; Glucose 137 mg/dL (75-110); Potassium 4.1 mmol/L (3.4-5.0); Sodium 140 mmol/L (137-145)
[2020-03-06 13:38] LABS: Troponin I < 0.012 ng/mL (0.000-0.034)
[2020-03-06 13:39] LABS: Barbiturate Screen Urine Negative (Negative); Benzodiazepines Screen Urine Negative (Negative)
[2020-03-06 13:42] LABS: Amphetamine Screen Urine Negative (Negative); Cannabinoid Screen Urine Positive (Negative); Cocaine Screen Urine Negative (Negative); Methadone Screen Urine Negative (Negative); Phencyclidine Screen Urine Negative (Negative)
[2020-03-06 13:53] LABS: Opiate Screen Urine Negative (Negative)
[2020-03-06] MEDS: SODIUM CHLORIDE 0.9% IV 1,000 ML 999 ML IV CONT (13:59)
--- NOTE | 2020-03-06 14:00 | PC.NURSE ---
Patient alert at this time, attempting to get out of bed. Patient unsteady on feet, placed back in bed and linens changed after incontinent of bowel and bladder.
--- NOTE | 2020-03-06 14:05 | ED.GENADULT ---
HPI - General Adult General Chief complaint: Seizure Stated complaint: seizure Time Seen by Provider: 03/06/20 12:36 Source: patient and old records reviewed Mode of arrival: ambulatory Limitations: altered mental status History of Present Illness HPI narrative: Patient is a 49-year-old female who presents to emergency department for evaluation of seizure patient had a reported seizure at home has not been taking his seizure medicines for the last 2 days also has history of alcohol abuse patient presents per EMS appears to be postictal is snoring and is slow to respond patient has history of noncompliance with similar occurrences in the past with frequent hospital visits for similar occurrence patient has not otherwise been sick and has family present on arrival Related Data Allergies Allergy/AdvReac Type Severity Reaction Status Date / Time No Known Allergies Allergy Unknown Verified 03/06/20 12:09 Review of Systems Review of Systems: ROS unobtainable: Yes unobtainable due to medical condition PMFSH Past Medical History Medical History Anxiety Hypertension Polysubstance abuse Urine drug screen positive on 08/07/2019 for amphetamines, cocaine, and cannabinoids. Urine drug screen positive on 08/24/2019 for cocaine and cannabinoids. Seizure disorder Tobacco dependence Surgical History Surgical History No history of previous surgery Family History Family History Mother Acute myocardial infarction Grandparent Acute myocardial infarction Father Unknown family medical history Social History Social History Social History: The patient lives in [place] with his theodoree. 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 He has smoked up to 1 pack of cigarettes per day for at least 20 years. He drinks 2 to 3 beers, several nights a week. He denies ever having any alcohol withdrawal symptoms. He admits to smoking marijuana daily. He uses cocaine recreationally, few times a week. He denies having ever used amphetamines however drug screen on 08/07/2019 was positive for amphetamines in addition to cocaine and cannabinoids. He assumes that his cocaine must have been contaminated with amphetamines. Smoking packs per day: 0.5 Smoking cigarettes per day: 10.0 Years smoked: 15 Smoking pack-years: 7.50 Smoking status: Current every day smoker Tobacco type: cigarettes Second hand tobacco smoke exposure: Yes Alcohol intake: current Drinks per week: 21 Substance use: former Substance use type: marijuana and crack/cocaine Gender identity (if verbalized by the patient): Male Agree to blood products: Yes Exam Narrative: Exam Narrative: GENERAL: Well-appearing, well-nourished, and in no acute distress. HEAD: Normocephalic, atraumatic. EYES: PERRLA and EOMI. ENT: Nares clear, no rhinorrhea or epistaxis. Mucous membranes moist. Oropharynx without tonsillar hypertrophy exudate or other lesions. NECK: Supple. No adenopathy or masses. No carotid bruits or JVD CHEST: Clear to auscultation. No respiratory distress. No wheezes rales or rhonchi HEART: Tachycardic rate and regular rhythm. No murmur heard. Normal peripheral pulses. ABDOMEN: Soft, nontender, nondistended EXTREMITIES: Normal range of motion. No edema. SKIN: Warm, dry, no rash. NEURO: Patient snoring in the room responsive to painful stimuli. Patient after medications is now resting comfortably alert and oriented x3. Cranial nerves II through XII grossly intact PSYCH: Normal mood and affect. Course Reevaluation(s) Reevaluation #1: Patient in the room at this time aware of situation has had improved mentation is alert and oriented at this time to person place and reason for
[2020-03-06 14:09] LABS: Creatine Kinase 70 U/L (55-170)
[2020-03-06 14:12] LABS: Ethanol 128 mg/dL (<10)
--- NOTE | 2020-03-06 17:20 | ADMGEN ---
This patient, Gabriela Soriano, was admitted to Medical Room 347-. Patient/family oriented to hospital policies and general routines including ID bracelet, bed and alarms, visiting hours, pain management, procedures, bathroom and other care routines, personal items, smoking policy, room service/diet, and visiting hours. Valuables list has been completed. Information on how to activate the Rapid Response Team has been discussed. Patient/Family are encouraged to report perceived risks to care and to ask questions if they do not understand what they are told or what they should do.
[2020-03-06] MEDS: LACTATED RINGERS 1,000 ML 125 ML IV CONT (17:38)
[2020-03-06 20:17] LABS: Magnesium 1.6 mg/dL (1.6-2.3); Phosphorus 3.9 mg/dL (2.5-4.5)
[2020-03-06 20:31] LABS: Beta-Hydroxybutyrate/Acetoacetate 0.21 mmol/L (0.02-0.27)
--- NOTE | 2020-03-06 20:31 | PM.IMHP ---
H&P: HPI History of Present Illness Date/Time: 03/06/20 20:31 Chief complaint: Seizures, medication noncompliance, alcohol intoxi Narrative: This is a 49 year old male with known history of chronic alcoholism and epilepsy who is poorly compliant with his medications and presented to the hospital earlier today secondary to having a seizure. The patient apparently has not been taking his seizure medication as he has not followed up with his PCP and when he ran out of the seizure medication he had from his last hospitalization he simply did not get any more. The patient had a second witnessed seizure in the ER tonight and was loaded with IV keppra. He was admitted to the hospital for further care. On my encounter with the patient he denies any headache, blurry vision, numbness, tingling, chest pain, shortness of breath, cough, abdominal pain, dysuria, hematuria, diarrhea or rectal bleeding. He admits that he doesn't remember whether or not he had a seizure earlier today. He claims he has been eating normally. He has a history of previous cocaine abuse although tonight he denies any recent use and his UDS was negative for cocaine. The patient also admits to drinking a 6 pack of beer daily. He has had a fever since he was admitted but denies any other symptoms at this time. CT brain was obtained in the ER and was unremarkable. Neurology was consulted by ER provider. No other complaints. Review of Systems Review of Systems: All systems reviewed & are unremarkable except as noted in HPI and below PMFSH Past Medical History Medical History Anxiety Hypertension Polysubstance abuse Urine drug screen positive on 08/07/2019 for amphetamines, cocaine, and cannabinoids. Urine drug screen positive on 08/24/2019 for cocaine and cannabinoids. Seizure disorder Tobacco dependence Surgical History Surgical History No history of previous surgery Family History Family History Mother Acute myocardial infarction Grandparent Acute myocardial infarction Father Unknown family medical history Social History Social History Social History: The patient lives in [place] with his fitheodoree. 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 He has smoked up to 1 pack of cigarettes per day for at least 20 years. He drinks 2 to 3 beers, several nights a week. He denies ever having any alcohol withdrawal symptoms. He admits to smoking marijuana daily. He uses cocaine recreationally, few times a week. He denies having ever used amphetamines however drug screen on 08/07/2019 was positive for amphetamines in addition to cocaine and cannabinoids. He assumes that his cocaine must have been contaminated with amphetamines. Smoking packs per day: 0.5 Smoking cigarettes per day: 10.0 Years smoked: 15 Smoking pack-years: 7.50 Smoking status: Current every day smoker Tobacco type: cigarettes Second hand tobacco smoke exposure: Yes Alcohol intake: current Drinks per week: 21 Substance use: former Substance use type: marijuana and crack/cocaine Gender identity (if verbalized by the patient): Male Spiritual care concerns: No Agree to blood products: Yes Meds Home Medications and Allergies Home Medications Medication Instructions Recorded Confirmed Type levetiracetam 750 mg PO Q12HR #60 tablet 12/07/19 03/06/20 Rx Allergies Allergy/AdvReac Type Severity Reaction Status Date / Time No Known Allergies Allergy Unknown Verified 03/06/20 12:09 Vital Signs Vital Signs - 24 hr 03/06/20 12:04 03/06/20 12:10 03/06/20 12:53 Temperature 37.2 C Pulse Rate 102 H 105 H 132 H Respiratory Rate 20 25 H Blood Pressure 138/97 H 143/87 H Pulse Oximet
[2020-03-06 21:29] LABS: Lactic Acid Reflex 1.4 mmol/L (0.7-2.1)
[2020-03-06] MEDS: IBUPROFEN 400 MG TABLET PO (21:30)
[2020-03-06] MEDS: levETIRAcetam Tablet 250 MG, levETIRAcetam Tablet 500 MG 750 MG PO (21:30)
[2020-03-06] MEDS: FAMOTIDINE 20 MG/2 ML VIAL IV PUSH (21:31)
[2020-03-06] MEDS: chlordiazePOXIDE 25 MG CAPSULE PO (21:31)
[2020-03-06] MEDS: THIAMINE HCL 200 MG/2 ML VIAL 100 MG IV PUSH (21:32)
[2020-03-06] MEDS: SODIUM CHLORIDE 0.9% IV 1,000 ML 150 ML IV CONT (21:33)
[2020-03-06 22:00] LABS: Glucose Point of Care 135 (65-105)
[2020-03-07] VITALS (10 sets, daily range): BP systolic 107–124; BP diastolic 73–86; PULSE 64–95; RESP 14–20; TEMP 36.7–37.3; O2SAT 98–100
[2020-03-07 01:21] LABS: Glucose Point of Care 117 (65-105)
[2020-03-07] MEDS: chlordiazePOXIDE 25 MG CAPSULE PO ×3 (02:34→21:13)
[2020-03-07 06:07] LABS: Basophils Percent Auto 0.3 % (0.2-1.2); Eosinophils Percent Auto 0.1 % (0-4.4); Hematocrit 34.6 % (42.0-52.0); Hemoglobin 12.2 g/dL (14.0-18.0); Immature Granulocyte Absolute 0.03 K/mm3 (0.00-0.031); Immature Granulocyte Percent A 0.3 % (0-0.5); Lymphocytes Absolute Auto 2.38 K/mm3 (0.9-3.2); Lymphocytes Percent Auto 21.5 % (18.3-44.2); Mean Corpuscular HGB Conc 35.3 g/dl (32-36); Mean Corpuscular Hemoglobin 31.9 pg (26-34); Mean Corpuscular Volume 90.6 fl (80-100); Monocytes Absolute Auto 0.6 K/mm3 (0.1-0.6); Monocytes Percent Auto 5.4 % (2.6-8.5); Neutrophils Percent Auto 72.4 % (45.5-73.1); Platelet Count Result 120 k/mm3 (150-375); Red Blood Count 3.82 M/mm3 (4.6-6.20); Red Cell Distribution Width 14.2 % (11.5-14.5); White Blood Count 11.1 K/mm3 (4.5-10.0)
[2020-03-07 06:22] LABS: Anion Gap 6 mmol/L (8-16); Blood Urea Nitrogen 5 mg/dL (9-20); Calcium 7.5 mg/dL (8.4-10.2); Carbon Dioxide 26 mmol/L (22-30); Chloride 102 mmol/L (98-107); Estimated CRCL calculation 105 ml/min; Estimated Glomerular Filt Rate > 60; Glucose 88 mg/dL (75-110); Potassium 3.6 mmol/L (3.4-5.0); Sodium 134 mmol/L (137-145)
[2020-03-07 06:53] LABS: Glucose Point of Care 101 (65-105)
[2020-03-07 07:32] LABS: Alveolar/Arterial O2 Gradient 28.5 mmHg; Fractional Inspired Oxygen 21 %; HCO3 ABG 23.5 mEq/l (22.0-26.0); Oxygen Content ABG 17.4 %vol (16.0-22.0); Oxygen Saturation ABG 96.4 % (95.0-100.0); Oxyhemoglobin 94.9 % THb (90.0-100.0); PCO2 ABG 34.3 mmHg (35.0-45.0); PO2 ABG 80.2 mmHg (80.0-100.0); PO2 FiO2 Ratio Arterial Blood 3.82 %; pH ABG 7.453 (7.350-7.450)
[2020-03-07 07:33] LABS: Device ROOM AIR; Modified Allen's Test Pass; Site Drawn LEFT RADIAL
[2020-03-07] MEDS: THIAMINE HCL 200 MG/2 ML VIAL 100 MG IV PUSH (09:12)
[2020-03-07] MEDS: FAMOTIDINE 20 MG/2 ML VIAL IV PUSH ×2 (09:12→21:24)
[2020-03-07] MEDS: levETIRAcetam Tablet 250 MG, levETIRAcetam Tablet 500 MG 750 MG PO ×2 (09:12→21:14)
--- NOTE | 2020-03-07 12:16 | WPDNEURCNPN ---
Assessment and Plan Assessment and plan (1) Alcoholism: Code(s): F10.20 - Alcohol dependence, uncomplicated Status: Acute (2) Recurrent seizures: Code(s): G40.909 - Epilepsy, unspecified, not intractable, without status epilepticus Status: Acute (3) Polysubstance abuse: Code(s): F19.10 - Other psychoactive substance abuse, uncomplicated Status: Chronic Additional Plan continue anticonvulsants till he becomes stable then accordingly Consult date: 03/07/20 Time Seen: 11:30 HPI: Gabriela Soriano is a 49 year old maleWith known history of chronic alcoholism in epilepsy poorly compliant with medication presented to the hospital for the seizure recurrent and with inflammation that probably he has no taking his medication regularly has never followed up with the primary care physician he had a 2nd witnessed seizure in the emergency room when he was loaded with IV Keppra he complained of no headaches no weakness or numbness of 1 side or other side does have a history of previous cocaine abuse drinking 6 packs of beer daily initial CT initial CT scan of the head in the emergency room was normal PMFSH Past Medical History Medical History Anxiety Hypertension Polysubstance abuse Urine drug screen positive on 08/07/2019 for amphetamines, cocaine, and cannabinoids. Urine drug screen positive on 08/24/2019 for cocaine and cannabinoids. Seizure disorder Tobacco dependence Surgical History Surgical History No history of previous surgery Family History Family History Mother Acute myocardial infarction Grandparent Acute myocardial infarction Father Unknown family medical history Social History Social History Social History: The patient lives in [place] with his fitheodoree. 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 He has smoked up to 1 pack of cigarettes per day for at least 20 years. He drinks 2 to 3 beers, several nights a week. He denies ever having any alcohol withdrawal symptoms. He admits to smoking marijuana daily. He uses cocaine recreationally, few times a week. He denies having ever used amphetamines however drug screen on 08/07/2019 was positive for amphetamines in addition to cocaine and cannabinoids. He assumes that his cocaine must have been contaminated with amphetamines. Smoking packs per day: 0.5 Smoking cigarettes per day: 10.0 Years smoked: 15 Smoking pack-years: 7.50 Smoking status: Current every day smoker Tobacco type: cigarettes Second hand tobacco smoke exposure: Yes Alcohol intake: current Drinks per week: 21 Substance use: former Substance use type: marijuana and crack/cocaine Gender identity (if verbalized by the patient): Male Spiritual care concerns: No Agree to blood products: Yes Meds Home Medications and Allergies Home Medications Medication Instructions Recorded Confirmed Type levetiracetam 750 mg PO Q12HR #60 tablet 12/07/19 03/06/20 Rx Allergies Allergy/AdvReac Type Severity Reaction Status Date / Time No Known Allergies Allergy Unknown Verified 03/06/20 12:09 Vital Signs Vital Signs - 24 hr 03/06/20 12:53 03/06/20 13:03 03/06/20 14:56 Temperature Pulse Rate 132 H 130 H 94 Pulse Rate [Left Radial Palpation] Respiratory Rate 25 H 25 H 18 Blood Pressure 143/87 H 147/105 H 139/93 H Pulse Oximetry 96 100 99 03/06/20 16:03 03/06/20 17:06 03/06/20 17:58 Temperature 39.5 C H Pulse Rate 87 103 H 99 Pulse Rate [Left Radial Palpation] Respiratory Rate 20 26 H 20 Blood Pressure 141/100 H 148/105 H 148/98 H Pulse Oximetry 97 97 99 03/06/20 18:15 03/06/20 18:43 03/06/20 20:00 Temperature 39.5 C H 39.1 C H Pulse Rate 100 Pulse
--- NOTE | 2020-03-07 13:02 | PM.IMPN ---
Progress Note: A&P Assessment and Plan (1) Recurrent seizures: Code(s): G40.909 - Epilepsy, unspecified, not intractable, without status epilepticus Status: Acute Assessment and Plan: Secondary to nonadherence to medications. Dr. Sen has been consulted and appreciate recommendations Neurochecks Seizure precautions. Keppra PO BID. Monitor electrolytes Await further rec from Neurology Monitor (2) Alcoholism: Code(s): F10.20 - Alcohol dependence, uncomplicated Status: Acute Assessment and Plan: Patient drinks 6 pack of beer daily. CIWA 0 today CIWA-AR protocol. Ativan withdrawal prophylaxis. Librium PO scheduled. Will taper frequency today Thiamine IV daily. Aspiration precautions. (3) Fever: Qualifiers: Fever type: unspecified Qualified Code(s): R50.9 - Fever, unspecified Code(s): R50.9 - Fever, unspecified Status: Acute Assessment and Plan: May be secondary to acute seizure? No signs or symptoms of acute infection at this time. Blood cultures pending. Afebrile since last night Antipyretics as needed. Monitor (4) Acute encephalopathy: Code(s): G93.40 - Encephalopathy, unspecified Status: Resolved Assessment and Plan: Secondary to alcohol intoxication and acute seizures. Appears to have resolved - A&Ox4 Monitor (5) Metabolic acidosis: Code(s): E87.2 - Acidosis Status: Acute Assessment and Plan: Betahydroxybutyrate WNL. Lactic Acid WNL. Appears to have resolved overnight Monitor acid-base status BMP tomorrow (6) Hypertension: Qualifiers: Hypertension type: essential hypertension Qualified Code(s): I10 - Essential (primary) hypertension Code(s): I10 - Essential (primary) hypertension Status: Chronic Assessment and Plan: BP reasonable today 110s sys currently Monitor blood pressure. PRN IV hydralazine w/ parameters. Subjective Date/time seen: 03/07/20 13:02 Interval history: Patient is a 49 yo M with history of chronic alcoholism and epilepsy who is poorly compliant with his medications and is here for recurrent seizures likely due to noncompliance. Patient states he feels okay today. Nursing noted an episode of unresponsiveness where he was on the bathroom toilet and tilted back and leaned against the wall for about 15 seconds with a blank stare and not responding to questions; some shaking noted in hands; unclear if post-ictal state. Patient remembers this but states that he just felt flushed and that it he just received his medications. Otherwise no other complaints. Denies subjective f/c/s, headaches, dizziness, lightheadedness, s/sx of stroke, changes in v/h, cp/palpitations, sob/cough, n/v/d/c, abd pain, changes in BMs, dysuria, hematuria, cloudy urine, calf pain/swelling. Review of Systems Review of Systems: All systems reviewed & are unremarkable except as noted in HPI and below Exam Narrative: Exam Narrative: General: Patient resting supine in bed in no acute distress. HEENT: Normocephalic, EOMI, oral mucosa moist. Cardiovascular: Rate and rhythm are regular. No notable murmur, rub, or gallop. Respiratory: Lungs clear to auscultation anterolateral lung romero. Non-labored breathing. Abdomen: Soft, non-tender, non-distended, bowel sounds present. Extremities: Peripheral pulses intact. No edema. Neuro: No focal neurological deficits. Speech is clear. moves all extremities. No tremor noted Objective Data Vital Signs Vital Signs: Last Vital Signs Temp 98.1 F 03/07/20 09:52 Pulse 64 03/07/20 12:00 Resp 20 03/07/20 09:52 BP 110/77 03/07/20 12:00 Pulse Ox 98 03/07/20 09:52 Intake/Outp
[2020-03-08] VITALS: BP 120/82; PULSE 70; PULSE 93; RESP 14; TEMP 37.6; O2SAT 99
[2020-03-08 04:00] VITALS: BP 144/92; PULSE 66; RESP 14; TEMP 37.1; O2SAT 100
[2020-03-08 04:17] VITALS: PULSE 66
[2020-03-08 06:05] LABS: Basophils Percent Auto 0.3 % (0.2-1.2); Eosinophils Absolute Auto 0.3 K/mm3 (0-0.3); Eosinophils Percent Auto 3.5 % (0-4.4); Hematocrit 35.4 % (42.0-52.0); Hemoglobin 12.7 g/dL (14.0-18.0); Immature Granulocyte Absolute 0.03 K/mm3 (0.00-0.031); Immature Granulocyte Percent A 0.4 % (0-0.5); Lymphocytes Absolute Auto 1.55 K/mm3 (0.9-3.2); Lymphocytes Percent Auto 19.8 % (18.3-44.2); Mean Corpuscular HGB Conc 35.9 g/dl (32-36); Mean Corpuscular Hemoglobin 32.2 pg (26-34); Mean Corpuscular Volume 89.8 fl (80-100); Mean Platelet Volume 11.8 fl (7.4-10.4); Monocytes Absolute Auto 0.5 K/mm3 (0.1-0.6); Monocytes Percent Auto 6.5 % (2.6-8.5); Neutrophils Absolute Auto 5.4 K/mm3 (1.3-6.7); Neutrophils Percent Auto 69.5 % (45.5-73.1); Platelet Count Result 124 k/mm3 (150-375); Red Blood Count 3.94 M/mm3 (4.6-6.20); Red Cell Distribution Width 13.3 % (11.5-14.5); White Blood Count 7.8 K/mm3 (4.5-10.0)
[2020-03-08 06:19] LABS: Anion Gap 6 mmol/L (8-16); Blood Urea Nitrogen 4 mg/dL (9-20); Carbon Dioxide 25 mmol/L (22-30); Chloride 102 mmol/L (98-107); Estimated CRCL calculation 105 ml/min; Estimated Glomerular Filt Rate > 60; Glucose 91 mg/dL (75-110); Magnesium 1.5 mg/dL (1.6-2.3); Potassium 3.4 mmol/L (3.4-5.0); Sodium 133 mmol/L (137-145)
[2020-03-08 08:00] VITALS: BP 119/86; PULSE 65; PULSE 71; RESP 16; TEMP 37.2; O2SAT 100
[2020-03-08 09:05] VITALS: BP 144/92
[2020-03-08] MEDS: chlordiazePOXIDE 25 MG CAPSULE PO (09:09)
[2020-03-08] MEDS: levETIRAcetam Tablet 250 MG, levETIRAcetam Tablet 500 MG 750 MG PO (09:09)
[2020-03-08] MEDS: POTASSIUM CHLORIDE 20 MEQ TABLET 40 MEQ PO (09:09)
[2020-03-08] MEDS: MAGNESIUM SULF 1 GM/D5W 100 ML 1 GM/100 ML BAG IVPB (09:10)
[2020-03-08] MEDS: FAMOTIDINE 20 MG/2 ML VIAL IV PUSH (09:10)
[2020-03-08] MEDS: THIAMINE HCL 200 MG/2 ML VIAL 100 MG IV PUSH (09:10)
--- NOTE | 2020-03-08 11:12 | PM.DS ---
DS: Admitting Diagnosis Admitting Diagnosis Admitting Diagnosis: Seizures, medication noncompliance, met acidosis DS: Discharge Diagnosis Discharge Diagnosis (1) Recurrent seizures: Code(s): G40.909 - Epilepsy, unspecified, not intractable, without status epilepticus Status: Acute Assessment and Plan: Secondary to nonadherence to medications. Dr. Sen has been consulted and appreciate recommendations. Spoke to Dr. Macias and patient can be discharged from his standpoint. Neurochecks during stay Seizure precautions during stay Keppra PO BID. Will send him with 1 month prescription BMP in 1 week to monitor electrolytes F/u with Dr. Sen in 1 month (2) Alcoholism: Code(s): F10.20 - Alcohol dependence, uncomplicated Status: Acute Assessment and Plan: Patient drinks 6 pack of beer daily. CIWA 0 today CIWA-AR protocol during stay Ativan withdrawal prophylaxis. Librium PO scheduled. Will d/c today Thiamine IV daily during stay Aspiration precautions. (3) Fever: Qualifiers: Fever type: unspecified Qualified Code(s): R50.9 - Fever, unspecified Code(s): R50.9 - Fever, unspecified Status: Acute Assessment and Plan: May be secondary to acute seizure? No signs or symptoms of acute infection at this time. Blood cultures pending, although patient clinically not septic appearing. No source of infection as well. Afebrile since admission Antipyretics as needed. F/u with PCP (4) Acute encephalopathy: Code(s): G93.40 - Encephalopathy, unspecified Status: Resolved Assessment and Plan: Secondary to alcohol intoxication and acute seizures. Appears to have resolved - A&Ox4 Monitor (5) Metabolic acidosis: Code(s): E87.2 - Acidosis Status: Resolved Assessment and Plan: Betahydroxybutyrate WNL. Lactic Acid WNL. Appears to have resolve Monitor acid-base status BMP 1 week (6) Hypertension: Qualifiers: Hypertension type: essential hypertension Qualified Code(s): I10 - Essential (primary) hypertension Code(s): I10 - Essential (primary) hypertension Status: Chronic Assessment and Plan: BP reasonable today 140s sys currently Monitor blood pressure. PRN IV hydralazine w/ parameters. DS: Summary Hospital Course Reason for hospitalization: seizures, med noncompliance, met acidosis Hospital Course: Patient is a 49 yo M with history of chronic alcoholism and epilepsy who is poorly compliant with his medications and presented to the hospital on 03/06 secondary to having a seizure. Patient was found to be intoxicated and had a witnessed seizure in the ER. He ran out of his medication and did not follow up with his PCP to refill the prescription. Patient admitted under this setting. Please see H&P for further details. Presenting VS: Temp Pulse Resp BP Pulse Ox 99 F 102 H 20 138/97 H 99 03/06/20 12:04 03/06/20 12:04 03/06/20 12:04 03/06/20 12:04 03/06/20 12:04 Presenting Pertinent labs: CO2 10, anion gap 27, CK 70. ABG on 2L O2 NC showed pH 7.108 (7.453 on redraw), pCO2 31.7, HCO3 9.8. CBC, ABG, chemistry otherwise unremarkable Micro: BCx ngtd x 2 after 3 days Imaging: Chest X-Ray 03/06/20 13:25 IMPRESSION: 1. No acute cardiopulmonary disease. Head CT 03/06/20 13:31 IMPRESSION: 1. Normal brain. ECG: Interpretive Statements SINUS TACHYCARDIA ABNORMAL ECG Patient was admitted to the hospitalist service for further evaluation; Dr. Sen (Neurology) was consulted for further input. He was loaded with IV keppra while in the ED. He was resumed on his Keppra home dose. His metabolic acidosis resolved over first night of visit; he was given normal saline IV.
[2020-03-08 12:00] VITALS: BP 144/92; PULSE 65; PULSE 66
[2020-03-10 14:34] LABS: Levetiracetam Keppra 71.1 mcg/mL (12.0-46.0)
== END 2020-03-08 14:27 | disposition home or self-care (01) ==
LOC: ANHED 15:21 → ANH3MED 16:03
PROVIDERS: Emergency Medicine Emergency Medical Services; Family Medicine; Admitting Provider Family Medicine; Emergency Provider Emergency Medicine; PCP Emergency Medicine; Visit Provider Physician Assistant
DX: G40.909 Epilepsy, unspecified, not intractable, without status epilepticus (principal); Z91.14 Patient's other noncompliance with medication regimen; F10.220 Alcohol dependence with intoxication, uncomplicated; R50.9 Fever, unspecified; G93.40 Encephalopathy, unspecified; E87.2 Acidosis; I10 Essential (primary) hypertension; F17.210 Nicotine dependence, cigarettes, uncomplicated; F19.10 Other psychoactive substance abuse, uncomplicated; Z79.899 Other long term (current) drug therapy
CPT/HCPCS: 36415; 36600; 70450; 71045; 80048; 80177; 80307; 82010; 82375; 82550; 82805; 82948; 83050; 83605; 83735; 84100; 84484; 85025; 85610; 85730; 87040; 93005; 96361; 96374; 96375; 96376; 99285; A9270; G0378; G0379; J0131; J1953; J2060; J3411; J3475; J7030; J7120

== ENCOUNTER 2020-04-12 09:49 | Emergency (ER) | payer BC, SELFPAY ==
--- NOTE | ~2020-04-12 | CT_ITS ---
EXAMINATION: CT brain wo con DATE: 04/12/2020 12:40 INDICATION: Seizure TECHNIQUE: Computed tomography (CT) of the head was performed without intravenous contrast. The mA wa s adjusted according to patient size. Iterative reconstruction technique was employed. Exam dose: 60 5.33 mGy-cm total exam DLP. COMPARISON: 03/06/2020 CT brain FINDINGS: No intracranial mass lesion or hemorrhage or cerebrovascular accident. No midline shift or mass effect. Normal ventricular size. No subdural or epidural hematoma. There is a 7.5 mm mucous retention cysts or polyps of the right sphenoid sinus. The included paranasa l sinuses and mastoid air cells are otherwise unremarkable. No fracture or bone destruction of the cranial vault. IMPRESSION: No significant intracranial abnormality Reviewed, dictated and finalized at [facility] Reviewed, dictated and finalized at [facility].
[2020-04-12 09:45] VITALS: BP 154/103; PULSE 102; RESP 15; TEMP 36.6; O2SAT 98
--- NOTE | 2020-04-12 09:51 | ECG_ITS ---
Measurements Intervals [place] Rate: 95 P: 64 MN: 151 QRS: 53 QRSD: 90 T: 63 QT: 343 QTc: 431 Interpretive Statements SINUS RHYTHM NORMAL ECG Electronically Signed On 04-12-2020 14:55:53 CDT by Jose Maria Hutton D.O.
[2020-04-12 09:52] VITALS: PULSE 95
--- NOTE | 2020-04-12 09:53 | ED.SEIZURE ---
HPI - Seizure General Chief Complaint: Seizure Stated Complaint: seizure Time Seen by Provider: 04/12/20 09:52 Source: patient and EMS History of Present Illness HPI Narrative: 49-year-old male presents to emergency department via EMS after having a seizure this morning. Patient does have a history of seizures in the past, noncompliant with medications. EMS states patient had 2 seizures yesterday, and one seizure today witnessed by a friend. He was postictal upon EMS arrival. Was not giving any antiseizure medications by EMS. Patient reports no chest pain or shortness of breath. No abdominal pain. No nausea or vomiting. Seizure History: Yes Related Data Allergies Allergy/AdvReac Type Severity Reaction Status Date / Time No Known Allergies Allergy Unknown Verified 03/06/20 12:09 Review of Systems Review of Systems: Narrative: CONSTITUTIONAL: Denies fever, chills, or sweats. EYES: Denies visual changes, redness, or discharge. ENT: Denies rhinorrhea, congestion, sore throat, or otalgia. CARDIOVASCULAR: Denies chest pain, palpitations, or edema. RESPIRATORY: Denies cough or dyspnea. GASTROINTESTINAL: Denies abdominal pain, nausea, vomiting, or diarrhea. GENITOURINARY: Denies dysuria or hematuria. SKIN: Denies rash or itching. MUSCULOSKELETAL: Denies back pain, joint pain, or myalgia. NEUROLOGIC: Denies headache, numbness, dizziness, or weakness. Reports seizures PSYCHIATRIC: Denies anxiety or depression. All systems reviewed & are unremarkable except as noted in HPI and below (ROS) PMFSH Past Medical History Medical History Anxiety Hypertension Polysubstance abuse Urine drug screen positive on 08/07/2019 for amphetamines, cocaine, and cannabinoids. Urine drug screen positive on 08/24/2019 for cocaine and cannabinoids. Seizure disorder Tobacco dependence Surgical History Surgical History No history of previous surgery Family History Family History Mother Acute myocardial infarction Grandparent Acute myocardial infarction Father Unknown family medical history Social History Social History Social History: The patient lives in [place] with his fitheodoree. 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 He has smoked up to 1 pack of cigarettes per day for at least 20 years. He drinks 2 to 3 beers, several nights a week. He denies ever having any alcohol withdrawal symptoms. He admits to smoking marijuana daily. He uses cocaine recreationally, few times a week. He denies having ever used amphetamines however drug screen on 08/07/2019 was positive for amphetamines in addition to cocaine and cannabinoids. He assumes that his cocaine must have been contaminated with amphetamines. Smoking packs per day: 0.5 Smoking cigarettes per day: 10.0 Years smoked: 15 Smoking pack-years: 7.50 Smoking status: Current every day smoker Tobacco type: cigarettes Second hand tobacco smoke exposure: Yes Alcohol intake: current Drinks per week: 21 Substance use: former Substance use type: marijuana and crack/cocaine Gender identity (if verbalized by the patient): Male Spiritual care concerns: No Agree to blood products: Yes Exam Narrative: Exam Narrative: GENERAL: Well-appearing, well-nourished, and in no acute distress. HEAD: Normocephalic, atraumatic. EYES: PERRLA and EOMI. ENT: Nares clear, no rhinorrhea or epistaxis. Mucous membranes moist. NECK: Supple. CHEST: Clear to auscultation. No respiratory distress. HEART: Regular rate and rhythm. No murmur heard. Normal peripheral pulses. ABDOMEN: Soft, nontender, nondistended, normal active bowel sounds. EXTREMITIES: Normal range of motion. No edema. SKIN: Warm, dry, no rash. NEURO: No foc
[2020-04-12 10:04] LABS: Basophils Absolute Auto 0.1 K/mm3 (0.0-0.1); Basophils Percent Auto 0.8 % (0.2-1.2); Eosinophils Absolute Auto 0.2 K/mm3 (0-0.3); Eosinophils Percent Auto 3.4 % (0-4.4); Hematocrit 39.2 % (42.0-52.0); Hemoglobin 13.7 g/dL (14.0-18.0); Immature Granulocyte Absolute 0.02 K/mm3 (0.00-0.031); Immature Granulocyte Percent A 0.3 % (0-0.5); Lymphocytes Absolute Auto 2.03 K/mm3 (0.9-3.2); Mean Corpuscular HGB Conc 34.9 g/dl (32-36); Mean Corpuscular Hemoglobin 31.9 pg (26-34); Mean Corpuscular Volume 91.4 fl (80-100); Mean Platelet Volume 12.2 fl (7.4-10.4); Monocytes Absolute Auto 0.3 K/mm3 (0.1-0.6); Monocytes Percent Auto 5.2 % (2.6-8.5); Neutrophils Absolute Auto 3.9 K/mm3 (1.3-6.7); Neutrophils Percent Auto 59.3 % (45.5-73.1); Nucleated Red Blood Cells Perc 0.3 % (0.0-0.2); Platelet Count Result 160 k/mm3 (150-375); Red Blood Count 4.29 M/mm3 (4.6-6.20); Red Cell Distribution Width 12.9 % (11.5-14.5); White Blood Count 6.6 K/mm3 (4.5-10.0)
[2020-04-12 10:15] LABS: Anion Gap 16 mmol/L (8-16); Blood Urea Nitrogen 7 mg/dL (9-20); Carbon Dioxide 21 mmol/L (22-30); Chloride 102 mmol/L (98-107); Estimated Glomerular Filt Rate > 60; Glucose 130 mg/dL (75-110); Potassium 4.2 mmol/L (3.4-5.0); Sodium 139 mmol/L (137-145)
[2020-04-12 10:31] VITALS: BP 131/93; PULSE 117; RESP 17; O2SAT 100
[2020-04-12] MEDS: levETIRAcetam 1000MG/NACL100ML 1,000 MG/100 ML BAG 400 MG IVPB (11:15)
[2020-04-12 11:16] VITALS: BP 126/88; PULSE 132; RESP 21; O2SAT 97
[2020-04-12 11:57] LABS: Ethanol 240 mg/dL (<10)
[2020-04-12] MEDS: SODIUM CHLORIDE 0.9% IV 1,000 ML 999 ML IV CONT (12:12)
--- NOTE | 2020-04-12 12:34 | PC.NURSE ---
PT TO CT SCAN VIA STRETCHER
[2020-04-12 13:20] VITALS: BP 141/99; PULSE 89; RESP 15; O2SAT 100
[2020-04-12 14:02] VITALS: BP 138/99; PULSE 82; RESP 15; O2SAT 100
[2020-04-16 11:01] LABS: Levetiracetam Keppra <1.0 mcg/mL (12.0-46.0)
== END 2020-04-12 14:03 | disposition home or self-care (01) ==
PROVIDERS: Emergency Provider Emergency Medicine; PCP Emergency Medicine
DX: G40.909 Epilepsy, unspecified, not intractable, without status epilepticus (principal); Z91.14 Patient's other noncompliance with medication regimen; I10 Essential (primary) hypertension; F17.210 Nicotine dependence, cigarettes, uncomplicated
CPT/HCPCS: 36415; 70450; 80048; 80177; 80307; 85025; 93005; 96361; 96365; 99284; J1953; J2060; J7030

== ENCOUNTER 2020-05-01 12:29 | Emergency (ER) | payer BC, SELFPAY ==
[2020-05-01] VITALS (19 sets, daily range): BP systolic 131–154; BP diastolic 98–113; PULSE 78–88; RESP 12–17; TEMP 36.7; O2SAT 94–100
--- NOTE | 2020-05-01 12:38 | ECG_ITS ---
Measurements Intervals [place] Rate: 85 P: 63 ND: 159 QRS: 52 QRSD: 89 T: 64 QT: 371 QTc: 442 Interpretive Statements SINUS RHYTHM NORMAL ECG Electronically Signed On 05-01-2020 12:56:13 CDT by Jose Maria Hutton D.O.
[2020-05-01] MEDS: levETIRAcetam 500MG/NACL 100ML 500 MG/100 ML BAG 400 MG IVPB (12:51)
[2020-05-01] MEDS: SODIUM CHLORIDE 0.9% IV 1,000 ML 150 ML IV CONT (12:52)
[2020-05-01 13:15] LABS: Basophils Absolute Auto 0.1 K/mm3 (0.0-0.1); Basophils Percent Auto 1.6 % (0.2-1.2); Eosinophils Absolute Auto 0.3 K/mm3 (0-0.3); Eosinophils Percent Auto 6.5 % (0-4.4); Hematocrit 37.8 % (42.0-52.0); Hemoglobin 13.3 g/dL (14.0-18.0); Immature Granulocyte Absolute 0.01 K/mm3 (0.00-0.031); Immature Granulocyte Percent A 0.2 % (0-0.5); Lymphocytes Absolute Auto 1.49 K/mm3 (0.9-3.2); Lymphocytes Percent Auto 33.6 % (18.3-44.2); Mean Corpuscular HGB Conc 35.2 g/dl (32-36); Mean Corpuscular Volume 91.1 fl (80-100); Mean Platelet Volume 11.3 fl (7.4-10.4); Monocytes Absolute Auto 0.5 K/mm3 (0.1-0.6); Monocytes Percent Auto 11.1 % (2.6-8.5); Neutrophils Absolute Auto 2.1 K/mm3 (1.3-6.7); Platelet Count Result 170 k/mm3 (150-375); Red Blood Count 4.15 M/mm3 (4.6-6.20); Red Cell Distribution Width 14.2 % (11.5-14.5); White Blood Count 4.4 K/mm3 (4.5-10.0)
[2020-05-01 13:25] LABS: Ethanol 153 mg/dL (<10)
[2020-05-01 13:26] LABS: Alanine Aminotransferase 238 U/L (4-50); Albumin Level 4.5 g/dL (3.5-5.1); Alkaline Phosphatase 110 U/L (38-126); Anion Gap 17 mmol/L (8-16); Aspartate Amino Transferase 417 U/L (17-59); Bilirubin,Total 0.8 mg/dL (0.2-1.3); Blood Urea Nitrogen 7 mg/dL (9-20); Calcium 9.1 mg/dL (8.4-10.2); Carbon Dioxide 23 mmol/L (22-30); Chloride 100 mmol/L (98-107); Estimated Glomerular Filt Rate > 60; Glucose 88 mg/dL (75-110); Potassium 4.2 mmol/L (3.4-5.0); Sodium 140 mmol/L (137-145)
[2020-05-01 13:27] LABS: Prothrombin Time 12.4 Seconds (11.1-14.7)
[2020-05-01 13:48] LABS: Add Urine Microscopic? YES; Appearance Urine Clear (Clear); Bacteria Urine Trace /hpf; Bilirubin Urine Negative (Negative); Blood Urine Negative (Negative); Color Urine Amber (Yellow); Glucose Urine UA Negative (Negative); Ketones Urine Trace mg/dL (Negative); Leukocyte Esterase Ur Negative LEU/UL (Negative); Mucus Urine Heavy /lpf; Nitrate Urine Negative (Negative); Protein Urine 2+ mg/dL (Negative); Specific Grav Ur 1.027 (1.001-1.035); WBC Urine 0-3 /hpf
--- NOTE | 2020-05-01 15:00 | ED.SEIZURE ---
HPI - Seizure General Chief Complaint: Seizure Stated Complaint: Seizure Time Seen by Provider: 05/01/20 12:37 History of Present Illness HPI Narrative: 49-year-old with a history of seizure disorder on Keppra here with complaints of having a seizure early this morning. Patient states that he ran out of Keppra 2 days ago. He also mentions that he has been drinking alcohol. He denies any headache or head injury at this time. No history of chest pain or shortness of breath. MD complaint: seizure Description of Episode: tonic-clonic movement Witnessed: Yes - by Other (By his fianc?e) Trauma: No Seizure History: Yes Place: home Possible Precipitating Event: alcohol withdrawal and other (Med noncompliance) Associated symptoms: denies other symptoms Treatments prior to arrival: none Related Data Allergies Allergy/AdvReac Type Severity Reaction Status Date / Time No Known Allergies Allergy Unknown Verified 03/06/20 12:09 Review of Systems Review of Systems: All systems reviewed & are unremarkable except as noted in HPI and below Constitutional: Constitutional: Reports no additional constitutional complaints Eyes: Eyes: Reports no additional eye complaints Cardiovascular: Cardiovascular: Reports no additional cardiovascular complaints Gastrointestinal: Gastrointestinal: Reports no additional gastrointestinal complaints Musculoskeletal: Musculoskeletal: Reports no additional musculoskeletal complaints Neurologic: Reports system reviewed and no additional complaints, except as documented Hematologic/Lymphatic: Hematologic/Lymphatic: Reports no additional hematologic/lymphatic complaints PMFSH Past Medical History Medical History Anxiety Hypertension Polysubstance abuse Urine drug screen positive on 08/07/2019 for amphetamines, cocaine, and cannabinoids. Urine drug screen positive on 08/24/2019 for cocaine and cannabinoids. Seizure disorder Tobacco dependence Surgical History Surgical History No history of previous surgery Family History Family History Mother Acute myocardial infarction Grandparent Acute myocardial infarction Father Unknown family medical history Social History Social History Social History: The patient lives in [place] with his mayte. 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 He has smoked up to 1 pack of cigarettes per day for at least 20 years. He drinks 2 to 3 beers, several nights a week. He denies ever having any alcohol withdrawal symptoms. He admits to smoking marijuana daily. He uses cocaine recreationally, few times a week. He denies having ever used amphetamines however drug screen on 08/07/2019 was positive for amphetamines in addition to cocaine and cannabinoids. He assumes that his cocaine must have been contaminated with amphetamines. Smoking packs per day: 0.5 Smoking cigarettes per day: 10.0 Years smoked: 15 Smoking pack-years: 7.50 Smoking status: Current every day smoker Tobacco type: cigarettes Second hand tobacco smoke exposure: Yes Alcohol intake: current Drinks per week: 21 Substance use: former Substance use type: marijuana and crack/cocaine Gender identity (if verbalized by the patient): Male Spiritual care concerns: No Agree to blood products: Yes Exam Narrative: Exam Narrative: GENERAL: Well-appearing, well-nourished, and in no acute distress. HEAD: Normocephalic, atraumatic. EYES: PERRLA and EOMI. ENT: Nares clear, no rhinorrhea or epistaxis. Mucous membranes moist. NECK: Supple. CHEST: Clear to auscultation. No respiratory distress. HEART: Regular rate and rhythm. No murmur heard. Normal peripheral pulses. ABDOMEN: Soft, nontender, nondistended, normal activ
== END 2020-05-01 16:00 | disposition home or self-care (01) ==
PROVIDERS: Emergency Provider Family Medicine
DX: G40.909 Epilepsy, unspecified, not intractable, without status epilepticus (principal); Z91.14 Patient's other noncompliance with medication regimen; F17.210 Nicotine dependence, cigarettes, uncomplicated; I10 Essential (primary) hypertension
CPT/HCPCS: 36415; 80053; 80307; 81001; 85025; 85610; 93005; 96361; 96374; 99284; J1953; J7030

== ENCOUNTER 2021-01-12 19:13 | Inpatient (IN) | payer BC, SELFPAY ==
--- NOTE | ~2021-01-12 | US_ITS ---
US abdomen limited INDICATION: Elevated alkaline phosphatase PROCEDURE: Realtime right upper abdominal ultrasound. COMPARISON: No prior studies for comparison. FINDINGS: The pancreas is normal without focal mass or pancreatic ductal dilation. Liver echotexture is increased, consistent with fatty infiltration. There is normal directional flow in the portal ve in. There is gallbladder sludge. Mild gallbladder wall thickening measuring 4 mm. There is suggestion of pericholecystic fluid. Common bile duct measures 6 mm. No sonographic Mart's sign. IMPRESSION: 1: Gallbladder wall thickening with possible pericholecystic fluid and gallbladder sludge. Consider a calculous cholecystitis in the appropriate clinical setting. 2: Hepatic steatosis. Reviewed, dictated and finalized at location B. IMPRESSION: 1: Gallbladder wall thickening with possible pericholecystic fluid and gallblad yazan sludge. Consider acalculous cholecystitis in the appropriate clinical setti ng. 2: Hepatic steatosis.
--- NOTE | ~2021-01-12 | CT_ITS ---
EXAMINATION: CT abdomen pelvis w con DATE: 01/12/2021 23:08 INDICATION: Jaundice. Abnormal liver function tests. TECHNIQUE: Computed tomography (CT) of the abdomen and pelvis was performed with 100 mL Omnipaque 350 intravenous contrast. Automated exposure control and iterative reconstruction technique were employe d. The dose-length product was 199.41 mGy-cm. COMPARISON: CT abdomen and pelvis 10/10/2011 FINDINGS: The visualized portions of the lung bases demonstrate mild atelectasis. No pleural effusion . The heart size is normal. No pericardial effusion. There is diffuse hepatic steatosis. Again seen i s an 8 mm hyperenhancing mass in right hepatic lobe, likely a hemangioma or focal nodular hyperplasia . The spleen is normal. The gallbladder is normal in size. The pancreas, adrenal glands, and right ki dney are normal. There is a 10 mm cyst in left kidney. There are no dilated loops of bowel. The appen rocky not visualized. There is a small volume of ascites. There is mild thoracolumbar spondylosis. IMPRESSION: 1. Diffuse hepatic steatosis. 2. Small volume of ascites. Reviewed, dictated and finalized at location A.
--- NOTE | ~2021-01-12 | US_ITS ---
EXAMINATION: Consultation US DATE: 01/13/2021 14:03 INDICATION: Ascites and leukocytosis. 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 COMPARISON: None. FINDINGS/IMPRESSION: Only a minimal amount of ascites was identified between multiple fluid-filled loops of small bowel in the deep pelvis. The largest pocket measured 1.5 x 4 cm. Given the paucity of fluid and the location amongst multiple loops of bowel with no safe route for catheter advancement into the fluid collectio n, the planned paracentesis was deferred. Reviewed, dictated and finalized at location A.
--- NOTE | ~2021-01-12 | XR_ITS ---
EXAMINATION: XR chest 2V DATE: 01/12/2021 19:45 INDICATION: Weakness. Fatigue. Shortness. TECHNIQUE: Frontal and lateral views of the chest were obtained. COMPARISON: Chest single view 03/06/2020 FINDINGS: There is no pneumonia, pleural effusion, or pneumothorax. The heart size is normal. IMPRESSION: 1. No acute cardiopulmonary disease. Reviewed, dictated and finalized at location A.
--- NOTE | 2021-01-12 19:16 | ECG_ITS ---
Measurements Intervals [place] Rate: 85 P: 64 CO: 134 QRS: 48 QRSD: 77 T: 71 QT: 393 QTc: 468 Interpretive Statements SINUS RHYTHM BASELINE ARTIFACT- I, II, III, AVR, AVL, AVF, V1-V2 NORMAL ECG Electronically Signed On 01-13-2021 7:17:48 CDT by Jose Maria Hutton D.O.
[2021-01-12 19:19] VITALS: BP 120/85; PULSE 104; RESP 16; TEMP 36.6; O2SAT 100
[2021-01-12 19:37] LABS: Basophils Absolute Auto 0.1 K/mm3 (0.0-0.1); Basophils Percent Auto 0.4 % (0.2-1.2); Eosinophils Absolute Auto 0.4 K/mm3 (0-0.3); Eosinophils Percent Auto 2.5 % (0-4.4); Hematocrit 27.6 % (42.0-52.0); Immature Granulocyte Percent A 0.6 % (0-0.5); Lymphocytes Absolute Auto 4.23 K/mm3 (0.9-3.2); Lymphocytes Percent Auto 24.8 % (18.3-44.2); Mean Corpuscular HGB Conc 32.6 g/dl (32-36); Mean Corpuscular Hemoglobin 36.3 pg (26-34); Mean Corpuscular Volume 111.3 fl (80-100); Mean Platelet Volume 12.3 fl (7.4-10.4); Monocytes Absolute Auto 1.5 K/mm3 (0.1-0.6); Monocytes Percent Auto 8.9 % (2.6-8.5); Neutrophils Absolute Auto 10.7 K/mm3 (1.3-6.7); Neutrophils Percent Auto 62.8 % (45.5-73.1); Nucleated Red Blood Cells Absolute Auto 0.3 K/mm3 (0.0-0.012); Platelet Count Result 265 k/mm3 (150-375); Red Blood Count 2.48 M/mm3 (4.6-6.20); Red Cell Distribution Width 15.8 % (11.5-14.5)
[2021-01-12 19:50] LABS: Albumin Level 2.8 g/dL (3.5-5.1); Alkaline Phosphatase 734 U/L (38-126); Anion Gap 15 mmol/L (8-16); Aspartate Amino Transferase 188 U/L (17-59); Bilirubin,Total 9.6 mg/dL (0.2-1.3); Blood Urea Nitrogen 4 mg/dL (9-20); Calcium 7.9 mg/dL (8.4-10.2); Carbon Dioxide 20 mmol/L (22-30); Chloride 100 mmol/L (98-107); Estimated CRCL calculation 111 ml/min; Estimated Glomerular Filt Rate > 60; Glucose 105 mg/dL (75-110); Potassium 4.6 mmol/L (3.4-5.0); Sodium 135 mmol/L (137-145)
[2021-01-12 20:01] LABS: Alanine Aminotransferase 50 U/L (4-50)
--- NOTE | 2021-01-12 20:46 | ED.WEAKNESS ---
HPI - Weakness General Chief complaint: Weakness Stated complaint: jaundice, weak, poor appetite Time Seen by Provider: 01/12/21 20:40 Source: patient Mode of arrival: ambulatory Limitations: no limitations History of Present Illness HPI Narrative: Patient is a 50-year-old male complaining of loss of appetite and generalized weakness for the past couple months and I just want get checked out make sure everything is okay . Patient states that he was seen at [facility] last night for dizziness but was not checked out for his weakness and loss of appetite. Related Data Allergies Allergy/AdvReac Type Severity Reaction Status Date / Time No Known Allergies Allergy Unknown Verified 03/06/20 12:09 Review of Systems Review of Systems: All systems reviewed & are unremarkable except as noted in HPI and below Constitutional: Constitutional: Denies body ache(s), Denies chills, Denies excessive sweating, Denies fever(s), Denies headache(s), Denies lethargy, Denies malaise and Denies weight loss Eyes: Eyes: Denies blurry vision, Denies change in vision and Denies loss of vision ENT: Denies ear discharge, Denies headache(s), Denies lip swelling, Denies epistaxis, Denies nasal congestion, Denies neck pain, Denies throat swelling and Denies tongue swelling Cardiovascular: Cardiovascular: Denies chest pain, Denies chest pain at rest, Denies chest pain with activity, Denies diaphoresis, Denies rapid heart rate, Denies edema, Denies irregular heart rhythm, Denies lightheadedness, Denies palpitations, Denies dyspnea and Denies dyspnea on exertion Respiratory: Respiratory: Denies chest congestion, Denies cough, Denies hemoptysis, Denies dyspnea and Denies dyspnea on exertion Gastrointestinal: Gastrointestinal: Denies abdominal pain, Denies melena, Denies hematochezia, Denies diarrhea, Denies nausea, Denies vomiting and Denies hematemesis Musculoskeletal: Musculoskeletal: Denies abnormal gait, Denies deformity, Denies joint swelling, Denies limited range of motion, Denies neck pain and Denies numbness Neurologic: Denies Abnormal speech present, Denies abnormal gait, Denies confusion, Denies dizziness, Denies headache(s), Denies focal weakness, Denies loss of vision, Denies numbness, Denies Other visual disturbances and Denies Sensory deficit (Neuro) Psychiatric: Psychiatric: Denies confusion, Denies depression, Denies auditory hallucinations, Denies homicidal ideation and Denies suicidal ideation Endocrine: Endocrine: Denies cold intolerance, Denies excessive sweating, Denies fatigue, Denies heat intolerance and Denies palpitations Hematologic/Lymphatic: Hematologic/Lymphatic: Denies easy bleeding and Denies easy bruising Allergic/Immunologic: Allergic/Immunologic: Denies lip swelling, Denies throat swelling and Denies tongue swelling PMFSH Past Medical History Medical History (Updated 01/13/21 @ 00:25 by Eugene Gan MD) Anxiety Hypertension Polysubstance abuse Urine drug screen positive on 08/07/2019 for amphetamines, cocaine, and cannabinoids. Urine drug screen positive on 08/24/2019 for cocaine and cannabinoids. Seizure disorder Tobacco dependence Surgical History Surgical History No history of previous surgery Family History Family History Mother Acute myocardial infarction Grandparent Acute myocardial infarction Father Unknown family medical history Social History Social History Social History: The patient lives in [place] with his mayte. 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 He has smoked up to 1 pack of cigarettes per day for at least 20 years. He drinks 2 to 3 beers, several nights a week. He denies ever having any alcohol withdrawal symptoms. He admits to smoking marijuana daily. He
[2021-01-12] MEDS: SODIUM CHLORIDE 0.9% IV 1,000 ML 999 ML IV CONT (21:11)
[2021-01-12 21:27] VITALS: BP 148/113; PULSE 97; RESP 20; O2SAT 97
[2021-01-12 22:40] VITALS: BP 138/104; PULSE 94; RESP 18; O2SAT 100
[2021-01-13] VITALS (10 sets, daily range): BP systolic 98–142; BP diastolic 55–106; PULSE 80–102; RESP 14–22; TEMP 36.1–37; O2SAT 96–100; BMI 18.7
[2021-01-13 00:52] LABS: INR 1.3
[2021-01-13 00:53] LABS: Partial Thromboplastin Time 33.2 SECONDS (22.3-36.8)
--- NOTE | 2021-01-13 01:48 | ADMGEN ---
This patient, Gabriela Soriano, was admitted to [facility] Surg Room 307-01. Patient/family oriented to hospital policies and general routines including ID bracelet, bed and alarms, visiting hours, pain management, procedures, bathroom and other care routines, personal items, smoking policy, room service/diet, and visiting hours. Information on how to activate the Rapid Response Team has been discussed. Patient/Family are encouraged to report perceived risks to care and to ask questions if they do not understand what they are told or what they should do.
[2021-01-13] MEDS: metroNIDAZOLE 250 MG TABLET 500 MG PO ×2 (02:19→17:55)
[2021-01-13] MEDS: ERTAPENEM 1 GM/NS 50 ML 1 GM/50 ML BAG IVPB ×2 (02:20→21:08)
[2021-01-13 02:42] LABS: Albumin Level 2.3 g/dL (3.5-5.1); Alkaline Phosphatase 557 U/L (38-126); Aspartate Amino Transferase 154 U/L (17-59); Bilirubin Direct 1.6 mg/dL (0-0.3); Bilirubin,Total 8.1 mg/dL (0.2-1.3)
[2021-01-13 02:48] LABS: Alanine Aminotransferase 45 U/L (4-50)
[2021-01-13 02:56] LABS: Iron 73 ug/dL (49-181)
[2021-01-13] MEDS: THIAMINE HCL INJ 100 MG, FOLIC ACID INJ 1 MG, MULTIVITAMINS-12 INJ VIAL 1 5 ML, MULTIVI... IV CONT (03:05)
[2021-01-13 03:06] LABS: Percent Iron Saturation 84 % (20-50)
[2021-01-13 04:14] LABS: Hepatitis B Surface Antigen Negative (Negative)
[2021-01-13 04:20] LABS: HAV RESULT Negative (Negative); Hepatitis B Core IgM Result Negative (Negative); Vitamin B12 > 1000.0 pg/mL (239-931)
--- NOTE | 2021-01-13 04:33 | PM.IMHP ---
H&P: HPI History of Present Illness Date/Time: 01/13/21 04:33 Chief Complaint: Jaundice Narrative: This is a 50-year-old male with past medical history significant for alcohol dependence patient drinks a pt of liquor daily plus beer, hepatic cirrhosis. Patient presented to the emergency room after he noticed jaundice also has had a pruritic rash all over his body for the last month or so. Patient states that his last drink was on Monday of this week. He denies any nausea or vomiting but has had diarrhea, he denies any chills rigors or fevers, no cough no sputum production no shortness of breath has no abdominal pain. Preliminary workup was significant for elevated alk-phos and total bilirubin and leukocytosis. Patient is a poor historian. Review of Systems Review of Systems: Narrative: Patient presented to the emergency room due to jaundice. All systems reviewed & are unremarkable except as noted in HPI and below (HPI) Eyes: Comments: Icterus Integumentary/Breasts: Skin/Breast: Reports pruritus, Reports rash and Reports jaundice PMFSH Past Medical History Medical History (Updated 01/13/21 @ 04:45 by Danyel Rouse MD) Anxiety Hypertension Polysubstance abuse Urine drug screen positive on 08/07/2019 for amphetamines, cocaine, and cannabinoids. Urine drug screen positive on 08/24/2019 for cocaine and cannabinoids. Seizure disorder Tobacco dependence Surgical History Surgical History No history of previous surgery Family History Family History Mother Acute myocardial infarction Grandparent Acute myocardial infarction Father Unknown family medical history Social History Social History Social History: The patient lives in [place] with his mayte. 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 He has smoked up to 1 pack of cigarettes per day for at least 20 years. He drinks 2 to 3 beers, several nights a week. He denies ever having any alcohol withdrawal symptoms. He admits to smoking marijuana daily. He uses cocaine recreationally, few times a week. He denies having ever used amphetamines however drug screen on 08/07/2019 was positive for amphetamines in addition to cocaine and cannabinoids. He assumes that his cocaine must have been contaminated with amphetamines. Smoking packs per day: 0.25 Smoking cigarettes per day: 5.0 Years smoked: 15 Smoking pack-years: 3.75 Smoking status: Current some day smoker Tobacco type: cigarettes Second hand tobacco smoke exposure: Yes Alcohol intake: current Drinks per week: 7 Substance use: former Substance use type: marijuana Gender identity (if verbalized by the patient): Male Spiritual care concerns: No Agree to blood products: Yes Meds Home Medications and Allergies Home Medications Medication Instructions Recorded Confirmed Type levetiracetam 750 mg tablet 750 mg PO BID #180 tablet 09/08/20 01/13/21 Rx Allergies Allergy/AdvReac Type Severity Reaction Status Date / Time No Known Allergies Allergy Unknown Verified 03/06/20 12:09 Vital Signs Vital Signs - 24 hr 01/12/21 19:19 01/12/21 21:27 01/12/21 22:40 Temperature 97.8 F Pulse Rate 104 H 97 94 Respiratory Rate 16 20 18 Blood Pressure 120/85 148/113 H 138/104 H Pulse Oximetry 100 97 100 01/13/21 00:14 01/13/21 00:37 01/13/21 01:30 Temperature 98.3 F Pulse Rate 101 H 95 102 H Respiratory Rate 18 18 18 Blood Pressure 106/70 106/70 117/82 Pulse Oximetry 100 100 100 Exam Narrative: Exam Narrative: Patient is laying in [facility] Const: General: cooperative, comfortable, no acute distress, well developed, alert, awake and ill appearing chronically Nutritional Appearance: underweight Orientation/consciousness: patient oriented x3 HENMT:
[2021-01-13 04:39] LABS: Hepatitis B Surface Anti Res Positive; Hepatitis C Virus Antibody Negative (Negative)
[2021-01-13] MEDS: PHYTONADIONE ADULT INJ 10 MG in DEXTROSE 5% IN WATER 50 ML 100 MG IVPB (05:08)
[2021-01-13 06:19] LABS: Basophils Absolute Auto 0.1 K/mm3 (0.0-0.1); Basophils Percent Auto 0.4 % (0.2-1.2); Eosinophils Absolute Auto 0.5 K/mm3 (0-0.3); Eosinophils Percent Auto 3.1 % (0-4.4); Hematocrit 24.3 % (42.0-52.0); Hemoglobin 8.1 g/dL (14.0-18.0); Immature Granulocyte Absolute 0.11 K/mm3 (0.00-0.031); Immature Granulocyte Percent A 0.6 % (0-0.5); Lymphocytes Absolute Auto 4.94 K/mm3 (0.9-3.2); Lymphocytes Percent Auto 28.8 % (18.3-44.2); Mean Corpuscular HGB Conc 33.3 g/dl (32-36); Mean Corpuscular Hemoglobin 35.8 pg (26-34); Mean Corpuscular Volume 107.5 fl (80-100); Monocytes Absolute Auto 1.5 K/mm3 (0.1-0.6); Monocytes Percent Auto 8.8 % (2.6-8.5); Neutrophils Percent Auto 58.3 % (45.5-73.1); Nucleated Red Blood Cells Absolute Auto 0.2 K/mm3 (0.0-0.012); Nucleated Red Blood Cells Perc 1.4 % (0.0-0.2); Platelet Count Result 248 k/mm3 (150-375); Red Blood Count 2.26 M/mm3 (4.6-6.20); Red Cell Distribution Width 15.3 % (11.5-14.5); White Blood Count 17.2 K/mm3 (4.5-10.0)
[2021-01-13 06:56] LABS: Macrocytosis 1+ (NORMAL); Platelet Estimate Adequate (Adequate); Target Cells 1+ (NORMAL)
--- NOTE | 2021-01-13 09:52 | PM.IMPN ---
Progress Note: A&P Assessment and Plan (1) Serum total bilirubin elevated: Code(s): R17 - Unspecified jaundice Status: Acute Assessment and Plan: Most likely alcoholic cirrhosis, consult GI, monitor liver enzymes, and clinical improvement. (2) Elevated liver enzymes: Code(s): R74.8 - Abnormal levels of other serum enzymes Status: Acute (3) Alcohol intoxication: Code(s): F10.929 - Alcohol use, unspecified with intoxication, unspecified Status: Acute (4) Seizure disorder: Code(s): G40.909 - Epilepsy, unspecified, not intractable, without status epilepticus Status: Acute Assessment and Plan: Monitor for signs of alcohol withdrawal symptoms (5) Polysubstance abuse: Code(s): F19.10 - Other psychoactive substance abuse, uncomplicated Status: Chronic Assessment and Plan: Advised patient to avoid illegal drugs, monitor for signs of withdrawal (6) Hypertension: Qualifiers: Hypertension type: essential hypertension Qualified Code(s): I10 - Essential (primary) hypertension Code(s): I10 - Essential (primary) hypertension Status: Chronic Assessment and Plan: Monitor vital signs closely Subjective Date/time seen: 01/13/21 09:52 Patient is resting comfortably in bed denies any active complaint. Exam Const: General: cooperative and no acute distress HENMT: Head: normal to inspection Eyes: General: appearance normal, both eyes and all related structures Neck: Neck: normal visual inspection Chest: Chest palpation & inspection: normal inspection of the chest Resp: Effort & Inspection: normal respiratory effort Cardio: Jugular venous distension: no JVD Rate: regular rate GI: Inspection: normal to inspection and non-distended Objective Data Vital Signs Vital Signs: Vital Signs - 24 hr 01/12/21 19:19 01/12/21 21:27 01/12/21 22:40 Temperature 97.8 F Pulse Rate 104 H 97 94 Respiratory Rate 16 20 18 Blood Pressure 120/85 148/113 H 138/104 H Pulse Oximetry 100 97 100 01/13/21 00:14 01/13/21 00:37 01/13/21 01:30 Temperature 98.3 F Pulse Rate 101 H 95 102 H Respiratory Rate 18 18 18 Blood Pressure 106/70 106/70 117/82 Pulse Oximetry 100 100 100 01/13/21 06:00 Temperature 98.6 F Pulse Rate 101 H Respiratory Rate 20 Blood Pressure 106/66 Pulse Oximetry 100 Intake/Output Intake/Output: Intake & Output 01/10/21 01/11/21 01/12/21 01/13/21 23:59 23:59 23:59 23:59 Intake Total 1000 341 Balance 1000 341 Meds/Results Medications: Active Medications Generic Name Dose Route Start Last Admin Trade Name Freq PRN Reason Stop Dose Admin Thiamine HCl 100 mg/ Folic 1,013.2 mls @ 100 mls/hr 01/13/21 00:48 01/13/21 03:05 Acid 1 mg/ Multivitamins 5 ml/ IV CONT 01/13/21 10:55 100 mls/hr Multivitamins 5 ml/ Magnesium .[id number] ONE Administration Sulfate 1 gm/ Dextrose/Sodium Chloride Ertapenem 1 gm in 50 mls @ 100 mls/hr 01/13/21 22:00 Invanz 1 Gm/Ns 50 Ml IVPB Q24H SAARH Metronidazole 500 mg 01/13/21 08:00 Metronidazole 250 Mg Tablet PO Q8H SARAH Radiology Results: ITS Impressions Chest X-Ray 01/12/21 19:48 IMPRESSION: 1. No acute cardiopulmonary disease. Abdomen/Pelvis CT 01/12/21 23:12 IMPRESSION: 1. Diffuse hepatic steatosis. 2. Small volume of ascites. Labs Labs: Laboratory Results - last 24 hr 01/12/21 01/12/21 01/13/21 19:31 19:31 00:36 WBC 17.0 H RBC 2.48 L Hgb 9.0 L D Hct 27.6 L MCV 111.3 H MCH 36.3 H MCHC 32.6 RDW 15.8 H Plt Count 265 D MPV 12.3 H Immature Gran % (Auto) 0.6 H Neut % (Auto) 62.8 Lymph % (Auto) 24.8 [place] % (Auto) 8.9 H Eos % (Auto) 2.5 Baso % (Auto) 0.4 Lymph # (Auto) 4.23 H [place] # (Auto) 1.5 H Eos # (Auto) 0.4 H Baso # (Auto) 0.1 Abs Immat Gran (auto) 0.10 H Absolute Neuts (auto) 10.7 H Absolute Nucleated RBC
--- NOTE | 2021-01-13 10:19 | WPDGICN ---
Assessment and Plan Assessment and plan (1) Anemia: Qualifiers: Anemia type: unspecified type Qualified Code(s): D64.9 - Anemia, unspecified Code(s): D64.9 - Anemia, unspecified Status: Acute Assessment and Plan: he has macrocytic anemia. Consequently part of his anemia may be nutritional. His hemoglobin has dropped since he was admitted. I suspect that he has had some gastrointestinal blood loss. I will schedule him for EGD to be done later today (2) Jaundice: Code(s): R17 - Unspecified jaundice Status: Acute Assessment and Plan: the jaundice indicates his cirrhosis is advanced. He is probably a child's class C (3) Alcoholism: Code(s): F10.20 - Alcohol dependence, uncomplicated Status: Acute Assessment and Plan: clearly he needs to stop drinking. Continue to drink with this stage have cirrhosis gives him over 50% mortality within 5 years (4) Cirrhosis: Code(s): K74.60 - Unspecified cirrhosis of liver Status: Acute Assessment and Plan: this would be a child's class C cirrhosis based on portal hypertension with ascites and the elevated bilirubin. GI Consult Note Consult date/time: 01/13/21 10:19 HPI: Gabriela Soriano is a 50 year old male Who presented to the emergency room late yesterday with complaints of vomiting blood. He also states that he was feeling very weak had no appetite and had not been feeling well for about a month. He states that he had been at [facility] emergency room but was not admit. He showed the emergency room physician a picture of what he had vomited. Looked like coffee-ground material. He is not sure if he has had black tarry stools. He has anemic with a hemoglobin of 9. MCV is elevated at 111. Bilirubin is 9 AST 188 and alkaline phosphatases over 700. He does continue to use alcohol. He has history of seizures as well Review of Systems Review of Systems: All systems reviewed & are unremarkable except as noted in HPI and below [facility] Past Medical History Medical History (Updated 01/13/21 @ 10:25 by Keny Wade MD) Anxiety Hypertension Polysubstance abuse Urine drug screen positive on 08/07/2019 for amphetamines, cocaine, and cannabinoids. Urine drug screen positive on 08/24/2019 for cocaine and cannabinoids. Seizure disorder Tobacco dependence Surgical History Surgical History No history of previous surgery Family History Family History Mother Acute myocardial infarction Grandparent Acute myocardial infarction Father Unknown family medical history Social History Social History Social History: The patient lives in [place] with his fitheodoree. 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 He has smoked up to 1 pack of cigarettes per day for at least 20 years. He drinks 2 to 3 beers, several nights a week. He denies ever having any alcohol withdrawal symptoms. He admits to smoking marijuana daily. He uses cocaine recreationally, few times a week. He denies having ever used amphetamines however drug screen on 08/07/2019 was positive for amphetamines in addition to cocaine and cannabinoids. He assumes that his cocaine must have been contaminated with amphetamines. Smoking packs per day: 0.25 Smoking cigarettes per day: 5.0 Years smoked: 15 Smoking pack-years: 3.75 Smoking status: Current some day smoker Tobacco type: cigarettes Second hand tobacco smoke exposure: Yes Alcohol intake: current Drinks per week: 7 Substance use: former Substance use type: marijuana Gender identity (if verbalized by the patient): Male Spiritual care concerns: No Agree to blood products: Yes Meds Home Medications and Allergies Home Medications
--- NOTE | 2021-01-13 13:42 | WPDANESEPPF ---
Anes - Initial Pre Proc Eval Procedure: Operation Date: 01/13/21 12:45 Proposed Procedures p Esophagogastroduodenoscopy - Keny Wade MD Date/Time: 01/13/21 13:42 Surgeon: Micky Harry MD Pre Op Diagnosis: Jaundice, Elevated Liver Enzymes Patient Data Age: 50 Gender: M Height: 1.8 m Weight: 61 kg Last Vital Signs Temp 98.6 F 01/13/21 06:00 Pulse 101 H 01/13/21 06:00 Resp 20 01/13/21 06:00 BP 106/66 01/13/21 06:00 Pulse Ox 100 01/13/21 06:00 Allergies Allergy/AdvReac Type Severity Reaction Status Date / Time No Known Allergies Allergy Unknown Verified 01/13/21 13:39 Home Medications Medication Instructions Recorded Confirmed Type levetiracetam 750 mg tablet 750 mg PO BID #180 tablet 09/08/20 01/13/21 Rx Laboratory Tests 01/12/21 01/12/21 01/13/21 19:31 19:31 00:36 WBC 17.0 K/mm3 H K/mm3 (4.5-10.0) RBC 2.48 M/mm3 L M/mm3 (4.6-6.20) Hgb 9.0 g/dL L D g/dL (14.0-18.0) Hct 27.6 % L % (42.0-52.0) MCV 111.3 fl H fl (80-100) MCH 36.3 pg H pg (26-34) MCHC 32.6 g/dl g/dl (32-36) RDW 15.8 % H % (11.5-14.5) Plt Count 265 k/mm3 D k/mm3 (150-375) MPV 12.3 fl H fl (7.4-10.4) Immature Gran % (Auto) 0.6 % H % (0-0.5) Neut % (Auto) 62.8 % % (45.5-73.1) Lymph % (Auto) 24.8 % % (18.3-44.2) [place] % (Auto) 8.9 % H % (2.6-8.5) Eos % (Auto) 2.5 % % (0-4.4) Baso % (Auto) 0.4 % % (0.2-1.2) Lymph # (Auto) 4.23 K/mm3 H K/mm3 (0.9-3.2) [place] # (Auto) 1.5 K/mm3 H K/mm3 (0.1-0.6) Eos # (Auto) 0.4 K/mm3 H K/mm3 (0-0.3) Baso # (Auto) 0.1 K/mm3 K/mm3 (0.0-0.1) Abs Immat Gran (auto) 0.10 K/mm3 H K/mm3 (0.00-0.031) Absolute Neuts (auto) 10.7 K/mm3 H K/mm3 (1.3-6.7) Absolute Nucleated RBC 0.3 K/mm3 H K/mm3 (0.0-0.012) Nucleated RBC % 2.0 % H % (0.0-0.2) Platelet Estimate Macrocytosis Target Cells PT 17.0 Seconds H Seconds (11.1-14.7) INR 1.3 APTT 33.2 SECONDS SECONDS (22.3-36.8) Sodium 135 mmol/L L mmol/L (137-145) Potassium 4.6 mmol/L mmol/L (3.4-5.0) Chloride 100 mmol/L mmol/L (98-107) Carbon Dioxide 20 mmol/L L mmol/L (22-30) Anion Gap 15 mmol/L mmol/L (8-16) BUN 4 mg/dL L mg/dL (9-20) Creatinine 0.60 mg/dL L mg/dL (0.7-1.3) Estim Creat Clear Calc 111 ml/min ml/min Estimated GFR > 60 (59 - ) Glucose 105 mg/dL mg/dL (75-110) Calcium 7.9 mg/dL L mg/dL (8.4-10.2) Iron TIBC % Saturation Total Bilirubin 9.6 mg/dL H mg/dL (0.2-1.3) Direct Bilirubin AST 188 U/L H U/L (17-59) ALT 50 U/L U/L (4-50) Alkaline Phosphatase 734 U/L H U/L (38-126) Total Protein 8.0 g/dL g/dL (6.3-8.2) Albumin 2.8 g/dL L g/dL (3.5-5.1) Vitamin B12 RBC Folate Hematocrit Hepatitis A IgM Ab Hep Bs Antigen Hep Bs Antibody Hep B Core IgM Ab Hepatitis C Ab Screen Hepatitis Delta Ab Hepatitis E IgG & IgM 01/13/21 01/13/21 01/13/21 01:53 01:53 02:05 WBC RBC Hgb Hct MCV MCH MCHC RDW Plt Count MPV Immature Gran % (Auto) Neut % (Auto) Lymph % (Auto) [place] % (Auto) Eos % (Auto) Baso % (Auto) Lymph # (Auto) [place] # (Auto) Eos # (Auto) Baso # (Auto) Abs Immat Gran (auto)
[2021-01-13] MEDS: LACTATED RINGERS 1,000 ML 150 ML IV CONT (13:49)
--- NOTE | 2021-01-13 19:56 | PC.NURSE ---
Patient to ultrasound for paracentesis around 1315 per wheelchair. Procedure was not done/needed. Ultrasound of the abdomen done. Notified MD that patient did not have paracentesis done.
--- NOTE | 2021-01-13 19:57 | PC.NURSE ---
Patient to GI lab per wheelchair for EGD around 1330.
[2021-01-14] VITALS (11 sets, daily range): BP systolic 108–131; BP diastolic 65–93; PULSE 72–99; RESP 14–20; TEMP 36.8–37.5; O2SAT 98–100
[2021-01-14] MEDS: metroNIDAZOLE 250 MG TABLET 500 MG PO ×3 (04:14→20:35)
[2021-01-14 06:39] LABS: INR 1.3; Prothrombin Time 17.2 Seconds (11.1-14.7)
[2021-01-14 06:41] LABS: Basophils Absolute Auto 0.1 K/mm3 (0.0-0.1); Basophils Percent Auto 0.3 % (0.2-1.2); Eosinophils Absolute Auto 0.9 K/mm3 (0-0.3); Eosinophils Percent Auto 5.8 % (0-4.4); Immature Granulocyte Absolute 0.11 K/mm3 (0.00-0.031); Immature Granulocyte Percent A 0.8 % (0-0.5); Lymphocytes Absolute Auto 3.91 K/mm3 (0.9-3.2); Lymphocytes Percent Auto 26.8 % (18.3-44.2); Mean Corpuscular HGB Conc 33.3 g/dl (32-36); Mean Corpuscular Hemoglobin 35.9 pg (26-34); Mean Corpuscular Volume 107.7 fl (80-100); Monocytes Absolute Auto 1.2 K/mm3 (0.1-0.6); Monocytes Percent Auto 8.1 % (2.6-8.5); Neutrophils Absolute Auto 8.5 K/mm3 (1.3-6.7); Neutrophils Percent Auto 58.2 % (45.5-73.1); Nucleated Red Blood Cells Absolute Auto 0.2 K/mm3 (0.0-0.012); Nucleated Red Blood Cells Perc 1.3 % (0.0-0.2); Platelet Count Result 195 k/mm3 (150-375); Red Blood Count 1.81 M/mm3 (4.6-6.20); Red Cell Distribution Width 14.7 % (11.5-14.5); White Blood Count 14.6 K/mm3 (4.5-10.0)
[2021-01-14 06:47] LABS: Alanine Aminotransferase 30 U/L (4-50); Albumin Level 1.9 g/dL (3.5-5.1); Alkaline Phosphatase 453 U/L (38-126); Anion Gap 7 mmol/L (8-16); Aspartate Amino Transferase 90 U/L (17-59); Calcium 6.9 mg/dL (8.4-10.2); Carbon Dioxide 22 mmol/L (22-30); Chloride 106 mmol/L (98-107); Estimated CRCL calculation 151 ml/min; Estimated Glomerular Filt Rate > 60; Glucose 95 mg/dL (75-110); Lipase 83 U/L (23-300); Magnesium 1.4 mg/dL (1.6-2.3); Phosphorus 2.6 mg/dL (2.5-4.5); Potassium 3.3 mmol/L (3.4-5.0); Sodium 135 mmol/L (137-145)
[2021-01-14 06:59] LABS: Hematocrit 19.5 % (42.0-52.0); Hemoglobin 6.5 g/dL (14.0-18.0)
[2021-01-14 07:42] LABS: Hematocrit 21.5 % (42.0-52.0); Mean Corpuscular HGB Conc 32.6 g/dl (32-36); Mean Corpuscular Hemoglobin 35.7 pg (26-34); Mean Corpuscular Volume 109.7 fl (80-100); Mean Platelet Volume 12.1 fl (7.4-10.4); Platelet Count Result 199 k/mm3 (150-375); Red Blood Count 1.96 M/mm3 (4.6-6.20); White Blood Count 16.3 K/mm3 (4.5-10.0)
[2021-01-14 07:51] LABS: Ammonia 21 umol/L (9-30)
[2021-01-14 08:12] LABS: Immature Reticulocyte Fraction 49.2 % (3.0-15.9); Reticulocyte Percent 8.47 % (0.7-4.3); Reticulocytes Absolute 0.17 B/L (32.2-175.7)
[2021-01-14 08:15] LABS: Blood Urea Nitrogen < 2 mg/dL (9-20)
[2021-01-14 08:33] LABS: Transferrin < 80 mg/dL (206-381)
--- NOTE | 2021-01-14 08:44 | WPDANESPN ---
Anes - Prog Note Post-Op Date/Time: 01/14/21 08:44 Cardiovascular status: normal Respiratory status: normal Airway patency: baseline Mental status: baseline Post-Op hydration status: normal Vital Signs: Last Vital Signs Temp 36.8 C 01/14/21 06:00 Pulse 84 01/14/21 06:00 Resp 20 01/14/21 06:00 BP 121/74 01/14/21 06:00 Pulse Ox 100 01/14/21 06:00 Pain Score (VAS): 0/10. Patient resting in bed at time of assessment, appears comfortable. I/O: Intake & Output 01/13/21 01/14/21 01/14/21 23:59 07:59 15:59 Intake Total 550 150 Balance 550 150 Laboratory Tests 01/14/21 07:37 01/14/21 05:50 01/13/21 01/14/21 01/14/21 02:05 05:50 05:50 WBC 14.6 H RBC 1.81 L Hgb 6.5 L* Hct 19.5 L* MCV 107.7 H MCH 35.9 H MCHC 33.3 RDW 14.7 H Plt Count 195 MPV 13.0 H Immature Gran % (Auto) 0.8 H Neut % (Auto) 58.2 Lymph % (Auto) 26.8 [place] % (Auto) 8.1 Eos % (Auto) 5.8 H Baso % (Auto) 0.3 Lymph # (Auto) 3.91 H [place] # (Auto) 1.2 H Eos # (Auto) 0.9 H Baso # (Auto) 0.1 Abs Immat Gran (auto) 0.11 H Absolute Neuts (auto) 8.5 H Absolute Nucleated RBC 0.2 H Nucleated RBC % 1.3 H Absolute Retic Percent Retic Immature Retic Fraction Retic Hgb Content Haptoglobin PT 17.2 H INR 1.3 Sodium Potassium Chloride Carbon Dioxide Anion Gap BUN Creatinine Estim Creat Clear Calc Estimated GFR Glucose Calcium Phosphorus Magnesium Iron TIBC % Saturation Transferrin Ferritin Total Bilirubin AST ALT Alkaline Phosphatase [place]mon[place] Total Protein Albumin Lipase Vitamin B12 Folate Hepatitis E IgG & IgM Cancelled 01/14/21 01/14/21 01/14/21 05:50 07:37 07:37 WBC 16.3 H RBC 1.96 L Hgb 7.0 L Hct 21.5 L MCV 109.7 H MCH 35.7 H MCHC 32.6 RDW 15.0 H Plt Count 199 MPV 12.1 H Immature Gran % (Auto) Neut % (Auto) Lymph % (Auto) [place] % (Auto) Eos % (Auto) Baso % (Auto) Lymph # (Auto) [place] # (Auto) Eos # (Auto) Baso # (Auto) Abs Immat Gran (auto) Absolute Neuts (auto) Absolute Nucleated RBC Nucleated RBC % Absolute Retic Percent Retic Immature Retic Fraction Retic Hgb Content Haptoglobin PT INR Sodium 135 L Potassium 3.3 L Chloride 106 Carbon Dioxide 22 Anion Gap 7 L BUN < 2 L Creatinine 0.40 L Estim Creat Clear Calc 151 Estimated GFR > 60 Glucose 95 Calcium 6.9 L Phosphorus 2.6 Magnesium 1.4 L Iron TIBC % Saturation Transferrin Ferritin Total Bilirubin 6.0 H AST 90 H ALT 30 Alkaline Phosphatase 453 H Ammonia 21 Total Protein 5.0 L Albumin 1.9 L Lipase 83 Vitamin B12 Folate Hepatitis E IgG & IgM 01/14/21 01/14/21 01/14/21 08:05 08:05 08:05 WBC RBC Hgb Hct MCV MCH MCHC RDW Plt Count MPV Immature Gran % (Auto) Neut % (Auto) Lymph % (Auto) [place] % (Auto) Eos % (Auto) Baso % (Auto) Lymph # (Auto) [place] # (Auto) Eos # (Auto) Baso # (Auto) Abs Immat Gran (auto) Absolute Neuts (auto) Absolute Nucleated RBC Nucleated RBC % Absolute Retic 0.17 L Percent Retic 8.47 H Immature Retic Fraction 49.2 H Retic Hgb Content 39.0 H Haptoglobin PT INR Sodium Potassium Chloride Carbon Dioxide Anion Gap BUN Creatinine Estim Creat Clear Calc Estimated GFR Glucose Calcium Phosphorus Magnesium Iron Pending TIBC Pending % Saturation Pending Transferrin Ferritin Pending Total Bilirubin AST ALT Alkaline Phosphatase [place] Total Protein Albumin Lipase Vitamin B12 Folate Hepatitis E IgG & IgM 01/14/21 01/14/21 08:05 08:05 WBC
[2021-01-14 09:00] LABS: Iron 65 ug/dL (49-181)
[2021-01-14 09:18] LABS: Percent Iron Saturation 71 % (20-50)
[2021-01-14 09:27] LABS: Folic Acid 6.2 ng/mL (2.76->20); Vitamin B12 > 1000.0 pg/mL (239-931)
--- NOTE | 2021-01-14 09:50 | WPDANESPN ---
Anes - Prog Note Post-Op Date/Time: 01/14/21 09:50 Cardiovascular status: normal Respiratory status: normal Airway patency: baseline Mental status: baseline Post-Op hydration status: normal Vital Signs: Last Vital Signs Temp 36.8 C 01/14/21 06:00 Pulse 84 01/14/21 06:00 Resp 20 01/14/21 06:00 BP 121/74 01/14/21 06:00 Pulse Ox 100 01/14/21 06:00 Pain Score (VAS): 0 I/O: Intake & Output 01/13/21 01/14/21 01/14/21 23:59 07:59 15:59 Intake Total 550 150 Balance 550 150 Laboratory Tests 01/14/21 07:37 01/14/21 05:50 01/14/21 01/14/21 01/14/21 05:50 05:50 05:50 WBC 14.6 H RBC 1.81 L Hgb 6.5 L* Hct 19.5 L* MCV 107.7 H MCH 35.9 H MCHC 33.3 RDW 14.7 H Plt Count 195 MPV 13.0 H Immature Gran % (Auto) 0.8 H Neut % (Auto) 58.2 Lymph % (Auto) 26.8 Keith % (Auto) 8.1 Eos % (Auto) 5.8 H Baso % (Auto) 0.3 Lymph # (Auto) 3.91 H Keith # (Auto) 1.2 H Eos # (Auto) 0.9 H Baso # (Auto) 0.1 Abs Immat Gran (auto) 0.11 H Absolute Neuts (auto) 8.5 H Absolute Nucleated RBC 0.2 H Nucleated RBC % 1.3 H Absolute Retic Percent Retic Immature Retic Fraction Retic Hgb Content Haptoglobin PT 17.2 H INR 1.3 Sodium 135 L Potassium 3.3 L Chloride 106 Carbon Dioxide 22 Anion Gap 7 L BUN < 2 L Creatinine 0.40 L Estim Creat Clear Calc 151 Estimated GFR > 60 Glucose 95 Calcium 6.9 L Phosphorus 2.6 Magnesium 1.4 L Iron TIBC % Saturation Transferrin Ferritin Total Bilirubin 6.0 H AST 90 H ALT 30 Alkaline Phosphatase 453 H Ammonia Total Protein 5.0 L Albumin 1.9 L Lipase 83 Vitamin B12 Folate Blood Type Antibody Screen Crossmatch 01/14/21 01/14/21 01/14/21 07:37 07:37 07:58 WBC 16.3 H RBC 1.96 L Hgb 7.0 L Hct 21.5 L MCV 109.7 H MCH 35.7 H MCHC 32.6 RDW 15.0 H Plt Count 199 MPV 12.1 H Immature Gran % (Auto) Neut % (Auto) Lymph % (Auto) Keith % (Auto) Eos % (Auto) Baso % (Auto) Lymph # (Auto) Keith # (Auto) Eos # (Auto) Baso # (Auto) Abs Immat Gran (auto) Absolute Neuts (auto) Absolute Nucleated RBC Nucleated RBC % Absolute Retic Percent Retic Immature Retic Fraction Retic Hgb Content Haptoglobin PT INR Sodium Potassium Chloride Carbon Dioxide Anion Gap BUN Creatinine Estim Creat Clear Calc Estimated GFR Glucose Calcium Phosphorus Magnesium Iron TIBC % Saturation Transferrin Ferritin Total Bilirubin AST ALT Alkaline Phosphatase Ammonia 21 Total Protein Albumin Lipase Vitamin B12 Folate Blood Type A Positive Antibody Screen Negative Crossmatch See Detail 01/14/21 01/14/21 01/14/21 08:05 08:05 08:05 WBC RBC Hgb Hct MCV MCH MCHC RDW Plt Count MPV Immature Gran % (Auto) Neut % (Auto) Lymph % (Auto) Keith % (Auto) Eos % (Auto) Baso % (Auto) Lymph # (Auto) Keith # (Auto) Eos # (Auto) Baso # (Auto) Abs Immat Gran (auto) Absolute Neuts (auto) Absolute Nucleated RBC Nucleated RBC % Absolute Retic 0.17 L Percent Retic 8.47 H Immature Retic Fraction 49.2 H Retic Hgb Content 39.0 H Haptoglobin PT INR Sodium Potassium Chloride Carbon Dioxide Anion Gap BUN Creatinine Estim Creat Clear Calc Estimated GFR Glucose Calcium Phosphorus Magnesium Iron 65 TIBC 91 L % Saturation 71 H Transferrin Ferritin Pending Total Bilirubin AST ALT Alkaline Phosphatase Ammonia Total Protein Albumin Lipase Vitamin B12 Folate Blood Type Antibody Screen Crossmatch 01/14/21 01/14/21 08:05 0
--- NOTE | 2021-01-14 10:01 | PM.IMPN ---
Progress Note: A&P Assessment and Plan (1) Serum total bilirubin elevated: Code(s): R17 - Unspecified jaundice Status: Acute Assessment and Plan: Most likely alcoholic cirrhosis, consult GI, monitor liver enzymes, and clinical improvement. (2) Elevated liver enzymes: Code(s): R74.8 - Abnormal levels of other serum enzymes Status: Acute (3) Alcohol intoxication: Code(s): F10.929 - Alcohol use, unspecified with intoxication, unspecified Status: Acute Assessment and Plan: Monitor for signs of withdrawal (4) Seizure disorder: Code(s): G40.909 - Epilepsy, unspecified, not intractable, without status epilepticus Status: Acute Assessment and Plan: Monitor for signs of alcohol withdrawal symptoms (5) Polysubstance abuse: Code(s): F19.10 - Other psychoactive substance abuse, uncomplicated Status: Chronic Assessment and Plan: Advised patient to avoid illegal drugs, monitor for signs of withdrawal (6) Hypertension: Qualifiers: Hypertension type: essential hypertension Qualified Code(s): I10 - Essential (primary) hypertension Code(s): I10 - Essential (primary) hypertension Status: Chronic Assessment and Plan: Monitor vital signs closely (7) Anemia: Qualifiers: Anemia type: unspecified type Qualified Code(s): D64.9 - Anemia, unspecified Code(s): D64.9 - Anemia, unspecified Status: Acute Assessment and Plan: Transfuse 2 units of red blood cells Check retic count, ferritin, anemia workup. Subjective Date/time seen: 01/14/21 10:01 Interval history: Patient is resting comfortably denies any active complaints at this time, no vomiting, no bleeding, no black stool. Hemoglobin noticed to be 6.5, repeat hemoglobin 7.0, plan to transfuse red blood cells, and workup of anemia, case was discussed with the provider contracting consultant. Exam Const: General: cooperative and no acute distress HENMT: Head: normal to inspection Eyes: General: appearance normal, both eyes and all related structures Neck: Neck: normal visual inspection Chest: Chest palpation & inspection: normal inspection of the chest Resp: Effort & Inspection: normal respiratory effort Cardio: Jugular venous distension: no JVD Rate: regular rate GI: Inspection: normal to inspection and non-distended Objective Data Vital Signs Vital Signs: Vital Signs - 24 hr 01/13/21 13:49 01/13/21 14:00 01/13/21 14:07 Temperature 97.6 F 97.0 F L Pulse Rate 93 92 100 Respiratory Rate 18 14 22 H Blood Pressure 122/84 139/106 H 140/90 Pulse Oximetry 99 100 99 01/13/21 14:17 01/13/21 14:27 01/13/21 22:00 Temperature 98.4 F Pulse Rate 101 H 82 80 Respiratory Rate 20 18 17 Blood Pressure 142/98 H 133/79 98/55 L Pulse Oximetry 100 100 96 01/14/21 06:00 Temperature 98.3 F Pulse Rate 84 Respiratory Rate 20 Blood Pressure 121/74 Pulse Oximetry 100 Intake/Output Intake/Output: Intake & Output 01/11/21 01/12/21 01/13/21 01/14/21 23:59 23:59 23:59 23:59 Intake Total 1000 891 150 Balance 1000 891 150 Meds/Results Medications: Active Medications Generic Name Dose Route Start Last Admin Trade Name Freq PRN Reason Stop Dose Admin Enoxaparin Sodium 40 mg 01/14/21 09:00 Enoxaparin 40 Mg/0.4 Ml Syringe SUB-Q DAILY SARAH Ertapenem 1 gm in 50 mls @ 100 mls/hr 01/13/21 22:00 01/13/21 21:08 Invanz 1 Gm/Ns 50 Ml IVPB 100 mls/hr Q24H SARAH Administration Sodium Chloride 250 mls @ 30 mls/hr 01/14/21 07:48 Normal Saline Iv IV CONT 01/14/21 16:07 .Q8H20M STA Sodium Chloride 250 mls @ 30 mls/hr 01/14/21 09:53 Normal Saline Iv IV CONT 01/14/21 18:12 .Q8H20M STA Metronidazole 500 mg 01/14/21 13:00 Metronidazole 250 Mg Tablet PO Q8HR [facility] Multi-Ingred Cream/Lotion/Oil/Oint 1 applic 01/14/21 09:00 Eucerin Cream 120 Gm Jar TOPICAL DAILY [facility] Rad
[2021-01-14 10:05] LABS: IFOB Positive Control Positive; Immunochemical Fecal Occult Bl Negative (N)
[2021-01-14] MEDS: SODIUM CHLORIDE 0.9% IV 250 ML 30 ML IV CONT (10:58)
[2021-01-14] MEDS: EUCERIN CREAM 120 GM JAR 1 APPLIC TOPICAL (11:00)
--- NOTE | 2021-01-14 12:06 | WPDGIPROGNO ---
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 (2) Jaundice: Code(s): R17 - Unspecified jaundice Status: Acute Assessment and Plan: the jaundice indicates his cirrhosis is advanced. He is probably a child's class C (3) Anemia: Qualifiers: Anemia type: unspecified type Qualified Code(s): D64.9 - Anemia, unspecified Code(s): D64.9 - Anemia, unspecified Status: Acute Assessment and Plan: he has macrocytic anemia. Consequently part of his anemia may be nutritional. His hemoglobin has dropped since he was admitted. I suspect that he has had some gastrointestinal blood loss. His EGD did not show a source for bleeding, and showed no varices fortunately. His blood counts have dropped further. Therefore he will be transfused today (4) Alcoholism: Code(s): F10.20 - Alcohol dependence, uncomplicated Status: Acute Assessment and Plan: clearly he needs to stop drinking. Continue to drink with this stage have cirrhosis gives him over 50% mortality within 5 years Time Spent With Patient Time with patient: 15 - 25 minutes Subjective Date/time seen: 01/14/21 12:06 the patient is lying in bed comfortable. He has no complaints. He denies nausea or vomiting. He does not believe that he has had any black or tarry stools. He thinks they were dark brown. Review of Systems Review of Systems: All systems reviewed & are unremarkable except as noted in HPI and below Exam Const: General: comfortable; No in distress GI: Inspection: normal to inspection GI Palp: No abdominal tenderness and Yes Hepatomegaly present Auscultation: normal bowel sounds Neuro: General: patient oriented x3 Motor exam (neuro): No Asterixis during motor activity present Objective Data Vital Signs Vital Signs: Vital Signs - 24 hr 01/13/21 13:49 01/13/21 14:00 01/13/21 14:07 Temperature 36.4 C 36.1 C L Pulse Rate 93 92 100 Respiratory Rate 18 14 22 H Blood Pressure 122/84 139/106 H 140/90 Pulse Oximetry 99 100 99 01/13/21 14:17 01/13/21 14:27 01/13/21 22:00 Temperature 36.9 C Pulse Rate 101 H 82 80 Respiratory Rate 20 18 17 Blood Pressure 142/98 H 133/79 98/55 L Pulse Oximetry 100 100 96 01/14/21 06:00 01/14/21 11:00 01/14/21 11:15 Temperature 36.8 C 36.9 C 36.9 C Pulse Rate 84 88 85 Respiratory Rate 20 16 16 Blood Pressure 121/74 121/70 108/65 Pulse Oximetry 100 100 100 Intake/Output Intake/Output: Intake & Output 01/11/21 01/12/21 01/13/21 01/14/21 23:59 23:59 23:59 23:59 Intake Total 1000 891 630 Balance 1000 891 630 Meds/Results Medications: Active Medications Generic Name Dose Route Start Last Admin Trade Name Freq PRN Reason Stop Dose Admin Ertapenem 1 gm in 50 mls @ 100 mls/hr 01/13/21 22:00 01/13/21 21:08 Invanz 1 Gm/Ns 50 Ml IVPB 100 mls/hr Q24H SARAH Administration Sodium Chloride 250 mls @ 30 mls/hr 01/14/21 07:48 01/14/21 10:58 Normal Saline Iv IV CONT 01/14/21 16:07 30 mls/hr .Q8H20M STA Administration Sodium Chloride 250 mls @ 30 mls/hr 01/14/21 09:53 Normal Saline Iv IV CONT 01/14/21 18:12 .Q8H20M STA Metronidazole 500 mg 01/14/21 13:00 Metronidazole 250 Mg Tablet PO Q8HR SARAH Multi-Ingred Cream/Lotion/Oil/Oint 1 applic 01/14/21 09:00 01/14/21 11:00 Eucerin Cream 120 Gm Jar TOPICAL 1 applic DAILY SARAH Administration Radiology Results: ITS Impressions Chest X-Ray 01/12/21 19:48 IMPRESSION: 1. No acute cardiopulmonary disease. Abdomen/Pelvis CT 01/12/21 23:12 IMPRESSION: 1. Diffuse hepatic steatosis. 2. Small volume of ascites. Abdomen Ultrasound 01/13/21 13:15 IMPRESSION: 1: Gallbladder wall thickening with possible
--- NOTE | 2021-01-14 14:45 | PCPTNOTE ---
Attempted PT evaluation this date. Pt too fatigued to participate at this time. Agreeable to therapy in AM. Will follow. DELTA BeattyT
[2021-01-14] MEDS: MAGNESIUM SULF 2 GM/WATER 50ML 2 GM/50 ML BAG IVPB (16:23)
[2021-01-14] MEDS: ERTAPENEM 1 GM/NS 50 ML 1 GM/50 ML BAG IVPB (20:35)
[2021-01-15] VITALS (9 sets, daily range): BP systolic 105–156; BP diastolic 79–111; PULSE 80–91; RESP 16–20; TEMP 36.8–37.7; O2SAT 97–100
[2021-01-15] MEDS: metroNIDAZOLE 250 MG TABLET 500 MG PO ×3 (06:35→22:17)
[2021-01-15 06:44] LABS: Basophils Absolute Auto 0.1 K/mm3 (0.0-0.1); Basophils Percent Auto 0.5 % (0.2-1.2); Eosinophils Absolute Auto 1.1 K/mm3 (0-0.3); Eosinophils Percent Auto 6.5 % (0-4.4); Hematocrit 30.2 % (42.0-52.0); Hemoglobin 10.4 g/dL (14.0-18.0); Immature Granulocyte Absolute 0.11 K/mm3 (0.00-0.031); Immature Granulocyte Percent A 0.7 % (0-0.5); Lymphocytes Percent Auto 19.4 % (18.3-44.2); Mean Corpuscular HGB Conc 34.4 g/dl (32-36); Mean Corpuscular Hemoglobin 33.3 pg (26-34); Mean Corpuscular Volume 96.8 fl (80-100); Mean Platelet Volume 12.3 fl (7.4-10.4); Monocytes Absolute Auto 1.5 K/mm3 (0.1-0.6); Monocytes Percent Auto 9.1 % (2.6-8.5); Neutrophils Absolute Auto 10.5 K/mm3 (1.3-6.7); Neutrophils Percent Auto 63.8 % (45.5-73.1); Nucleated Red Blood Cells Absolute Auto 0.2 K/mm3 (0.0-0.012); Nucleated Red Blood Cells Perc 1.2 % (0.0-0.2); Platelet Count Result 181 k/mm3 (150-375); Red Blood Count 3.12 M/mm3 (4.6-6.20); Red Cell Distribution Width 21.9 % (11.5-14.5); White Blood Count 16.5 K/mm3 (4.5-10.0)
[2021-01-15 06:55] LABS: Anion Gap 5 mmol/L (8-16); Calcium 7.5 mg/dL (8.4-10.2); Carbon Dioxide 21 mmol/L (22-30); Chloride 105 mmol/L (98-107); Estimated CRCL calculation 151 ml/min; Estimated Glomerular Filt Rate > 60; Glucose 87 mg/dL (75-110); Magnesium 1.6 mg/dL (1.6-2.3); Phosphorus 2.4 mg/dL (2.5-4.5); Potassium 3.9 mmol/L (3.4-5.0); Sodium 131 mmol/L (137-145)
[2021-01-15 07:45] LABS: Blood Urea Nitrogen < 2 mg/dL (9-20)
[2021-01-15] MEDS: EUCERIN CREAM 120 GM JAR 1 APPLIC TOPICAL (10:09)
[2021-01-15] MEDS: ACETAMINOPHEN 325 MG TABLET 650 MG PO (10:09)
[2021-01-15] MEDS: diphenhydrAMINE HCl CAP 25 MG CAPSULE 50 MG PO (10:09)
--- NOTE | 2021-01-15 10:33 | PCNFU ---
Nutrition Follow-Up Complete: Inadequate oral intake related to decreased appetite and cirrhosis of the liver as evidenced by patient reported weight loss. Goal: Patient to meet estimated nutritional needs. Progressing towards goal. We will continue current goal. Pt current nutrition is regular with Ensure Compact BID. Last recorded weight is 61 kg, no new weight to report. Bowel Motility: +BM reported 01/15 Labs Reviewed:Cr 0.4,HGb 10.4,Hct 30.2,Na 131,K 2.4 Meds Noted:Heath Long Additional Notes: Patient seen today for nutrition follow up. He states to no diet concerns at this time. Diet order is regular with Ensure compact BID providing an additional 220 kcals and 9 gms protein. Oral intake has been 5-50% of most meals. Agree with diet orders. Monitor patient's labs, medications, weight, and oral intake every 5 days.
--- NOTE | 2021-01-15 13:29 | PM.DS ---
DS: Admitting Diagnosis Admitting Diagnosis Admitting Diagnosis: Alcohol cirrhosis Alcohol drinking problem DS: Discharge Diagnosis Discharge Diagnosis (1) Cirrhosis: Code(s): K74.60 - Unspecified cirrhosis of liver Status: Acute (2) Anemia: Qualifiers: Anemia type: unspecified type Qualified Code(s): D64.9 - Anemia, unspecified Code(s): D64.9 - Anemia, unspecified Status: Acute (3) Seizure disorder: Code(s): G40.909 - Epilepsy, unspecified, not intractable, without status epilepticus Status: Acute DS: Summary Hospital Course Reason for hospitalization: Cirrhosis Elevated liver enzyme Alcohol drinking problem Hospital Course: 50-year-old male with past medical history significant for alcohol dependence patient drinks a pt of liquor daily plus beer, hepatic cirrhosis. Presented with elevated liver enzyme, and alcohol intoxication, GI were consulted, patient had EGD during this hospitalization, patient condition improved during this hospitalization, patient required blood transfusion for anemia that is most likely related to anemia of chronic inflammation. Patient was given resources for programs to help with alcohol drinking problem. Case was discussed with patient's family and patient is stable for discharge at this time. Time Spent with Patient Time attestation: Total time spent providing and/or coordinating discharge services: Time spent: Greater than 30 minutes DS: Data Data Completed and Pending Labs on day of discharge: Labs from last 24 hours 01/15/21 01/15/21 01/14/21 06:30 06:30 08:05 WBC 16.5 H RBC 3.12 L Hgb 10.4 L D Hct 30.2 L MCV 96.8 D MCH 33.3 D MCHC 34.4 RDW 21.9 H Plt Count 181 MPV 12.3 H Immature Gran % (Auto) 0.7 H Neut % (Auto) 63.8 Lymph % (Auto) 19.4 Cole % (Auto) 9.1 H Eos % (Auto) 6.5 H Baso % (Auto) 0.5 Lymph # (Auto) 3.20 [place] # (Auto) 1.5 H Eos # (Auto) 1.1 H Baso # (Auto) 0.1 Abs Immat Gran (auto) 0.11 H Absolute Neuts (auto) 10.5 H Absolute Nucleated RBC 0.2 H Nucleated RBC % 1.2 H Sodium 131 L Potassium 3.9 Chloride 105 Carbon Dioxide 21 L Anion Gap 5 L BUN < 2 L Creatinine 0.40 L Estim Creat Clear Calc 151 Estimated GFR > 60 Glucose 87 Calcium 7.5 L Phosphorus 2.4 L Magnesium 1.6 Ferritin 1390.00 H Blood Type Antibody Screen Crossmatch 01/14/21 07:58 WBC RBC Hgb Hct MCV MCH MCHC RDW Plt Count MPV Immature Gran % (Auto) Neut % (Auto) Lymph % (Auto) [place] % (Auto) Eos % (Auto) Baso % (Auto) Lymph # (Auto) Cole # (Auto) Eos # (Auto) Baso # (Auto) Abs Immat Gran (auto) Absolute Neuts (auto) Absolute Nucleated RBC Nucleated RBC % Sodium Potassium Chloride Carbon Dioxide Anion Gap BUN Creatinine Estim Creat Clear Calc Estimated GFR Glucose Calcium Phosphorus Magnesium Ferritin Blood Type A Positive Antibody Screen Negative Crossmatch See Detail Preliminary micro results at discharge 01/13/21 01:53 Blood Culture - Preliminary Blood 01/13/21 01:53 Blood Culture - Preliminary Blood Discharge Plan Discharge Consulting providers: Keny Wade Discharging Clinician: Micky Harry Patient Disposition: Home, Self-Care Activity: as tolerated Diet: regular Patient Instructions: Antibiotic Form, How to Stop Smoking (DC), Cirrhosis (DC), Anemia (DC) Stand Alone Forms: General Discharge Information Follow-up/Referrals: Keny Wade MD [Physician] - 1 Week Mauro Mendieta PA-C [Primary Care Provider] - 1 Week Discharge Medications: New folic acid 1 mg tablet 1 mg PO DAILY Qty: 30 RF: 0 thiamine HCl (vitamin B1) 100 mg tablet 100 mg PO DAILY Qty: 30 RF: 0 Continued levetiracetam [Keppra] 750 mg tablet 750 mg PO BID Qty: 180 RF: 0 Date of admission: 01/13
[2021-01-15] MEDS: LORazepam INJ (*CRX) 2 MG/ML VIAL IV PUSH (14:48)
[2021-01-15] MEDS: levETIRAcetam 500MG/NACL 100ML 500 MG/100 ML BAG 400 MG IVPB (15:18)
[2021-01-15] MEDS: ERTAPENEM 1 GM/NS 50 ML 1 GM/50 ML BAG IVPB (22:17)
[2021-01-15] MEDS: levETIRAcetam 500 MG TABLET PO (22:18)
[2021-01-16 06:00] VITALS: BP 106/52; PULSE 82; RESP 18; TEMP 37.1; O2SAT 100
[2021-01-16] MEDS: metroNIDAZOLE 250 MG TABLET 500 MG PO ×3 (06:06→22:22)
[2021-01-16 06:37] LABS: Basophils Absolute Auto 0.1 K/mm3 (0.0-0.1); Basophils Percent Auto 0.5 % (0.2-1.2); Eosinophils Percent Auto 7.3 % (0-4.4); Hematocrit 30.4 % (42.0-52.0); Hemoglobin 10.1 g/dL (14.0-18.0); Immature Granulocyte Absolute 0.08 K/mm3 (0.00-0.031); Immature Granulocyte Percent A 0.6 % (0-0.5); Lymphocytes Percent Auto 13.4 % (18.3-44.2); Mean Corpuscular HGB Conc 33.2 g/dl (32-36); Mean Corpuscular Hemoglobin 32.5 pg (26-34); Mean Corpuscular Volume 97.7 fl (80-100); Mean Platelet Volume 12.8 fl (7.4-10.4); Monocytes Absolute Auto 1.2 K/mm3 (0.1-0.6); Monocytes Percent Auto 8.1 % (2.6-8.5); Neutrophils Percent Auto 70.1 % (45.5-73.1); Nucleated Red Blood Cells Absolute Auto 0.1 K/mm3 (0.0-0.012); Nucleated Red Blood Cells Perc 0.8 % (0.0-0.2); Platelet Count Result 185 k/mm3 (150-375); Red Blood Count 3.11 M/mm3 (4.6-6.20); Red Cell Distribution Width 22.5 % (11.5-14.5); White Blood Count 14.2 K/mm3 (4.5-10.0)
[2021-01-16 06:49] LABS: Anion Gap 5 mmol/L (8-16); Calcium 7.7 mg/dL (8.4-10.2); Carbon Dioxide 21 mmol/L (22-30); Chloride 109 mmol/L (98-107); Estimated CRCL calculation 151 ml/min; Estimated Glomerular Filt Rate > 60; Glucose 83 mg/dL (75-110); Potassium 3.7 mmol/L (3.4-5.0); Sodium 135 mmol/L (137-145)
[2021-01-16 08:04] LABS: Red Blood Cell Folate 705 ng/mL RBC (>280)
[2021-01-16] MEDS: EUCERIN CREAM 120 GM JAR 1 APPLIC TOPICAL (09:52)
[2021-01-16] MEDS: levETIRAcetam 500 MG TABLET PO ×2 (09:52→22:22)
--- NOTE | 2021-01-16 10:30 | PM.IMPN ---
Progress Note: A&P Assessment and Plan (1) Cirrhosis: Code(s): K74.60 - Unspecified cirrhosis of liver Status: Acute Assessment and Plan: Monitor for complication, check ammonia level, check CMP with a.m. labs (2) Anemia: Qualifiers: Anemia type: unspecified type Qualified Code(s): D64.9 - Anemia, unspecified Code(s): D64.9 - Anemia, unspecified Status: Acute Assessment and Plan: Transfused 2 units of red blood cells 01/14 Most likely related to chronic inflammation and cirrhosis, no obvious bleeding, GI are following EGD no acute bleeding (3) Seizure disorder: Code(s): G40.909 - Epilepsy, unspecified, not intractable, without status epilepticus Status: Acute Assessment and Plan: On Keppra, check Keppra, discharge was held 01/15 because patient had seizure Subjective Date/time seen: 01/16/21 10:30 Interval history: Patient discharge was held because he had seizure before he got discharged yesterday, now patient is resting comfortably no active complaint. Exam Const: General: cooperative and no acute distress HENMT: Head: normal to inspection Eyes: General: appearance normal, both eyes and all related structures Neck: Neck: normal visual inspection Chest: Chest palpation & inspection: normal inspection of the chest Resp: Effort & Inspection: normal respiratory effort Cardio: Jugular venous distension: no JVD Rate: regular rate GI: Inspection: normal to inspection and non-distended Objective Data Vital Signs Vital Signs: Vital Signs - 24 hr 01/15/21 13:00 01/15/21 14:38 01/15/21 14:52 Temperature 98.5 F Pulse Rate 91 83 Pulse Rate [Right Radial] 86 Respiratory Rate 16 16 Blood Pressure 156/111 H 121/88 Pulse Oximetry 98 98 01/15/21 17:00 01/15/21 21:36 01/16/21 06:00 Temperature 98.3 F 98.8 F Pulse Rate 83 82 Pulse Rate [Right Radial] 80 Respiratory Rate 18 18 Blood Pressure 105/79 106/52 L Pulse Oximetry 97 100 Intake/Output Intake/Output: Intake & Output 01/13/21 01/14/21 01/15/21 01/16/21 23:59 23:59 23:59 23:59 Intake Total 941 1999 1430 390 Balance 941 1999 1430 390 Meds/Results Medications: Active Medications Generic Name Dose Route Start Last Admin Trade Name Dennis PRN Reason Stop Dose Admin Ertapenem 1 gm in 50 mls @ 100 mls/hr 01/13/21 22:00 01/15/21 22:47 Invanz 1 Gm/Ns 50 Ml IVPB Infused Q24H SARAH Infusion Levetiracetam 500 mg 01/15/21 21:00 01/16/21 09:52 Levetiracetam 500 Mg Tablet PO 500 mg Q12HR SARHA Administration Metronidazole 500 mg 01/14/21 13:00 01/16/21 06:06 Metronidazole 250 Mg Tablet PO 500 mg Q8HR SARAH Administration Multi-Ingred Cream/Lotion/Oil/Oint 1 applic 01/14/21 09:00 01/16/21 09:52 Eucerin Cream 120 Gm Jar TOPICAL 1 applic DAILY SARAH Administration Radiology Results: ITS Impressions Chest X-Ray 01/12/21 19:48 IMPRESSION: 1. No acute cardiopulmonary disease. Abdomen/Pelvis CT 01/12/21 23:12 IMPRESSION: 1. Diffuse hepatic steatosis. 2. Small volume of ascites. Abdomen Ultrasound 01/13/21 13:15 IMPRESSION: 1: Gallbladder wall thickening with possible pericholecystic fluid and gallbladder sludge. Consider acalculous cholecystitis in the appropriate clinical setting. 2: Hepatic steatosis. Labs Labs: Laboratory Results - last 24 hr 01/13/21 01/16/21 01/16/21 02:05 05:49 05:49 WBC 14.2 H RBC 3.11 L Hgb 10.1 L Hct 30.4 L MCV 97.7 MCH 32.5 MCHC 33.2 RDW 22.5 H Plt Count 185 MPV 12.8 H Immature Gran % (Auto) 0.6 H Neut % (Auto) 70.1 Lymph % (Auto) 13.4 L [place] % (Auto) 8.1 Eos % (Auto) 7.3 H Baso % (Auto) 0.5 Lymph # (Auto) 1.90 [place] # (Auto) 1.2 H Eos # (Auto) 1.0 H Baso # (Auto) 0.1 Abs Immat Gran (auto) 0.08 H Absolute Neuts (auto) 10.0 H Absolute Nucleated RBC 0.1 H Nucleated RBC
[2021-01-16 12:27] LABS: Blood Urea Nitrogen < 2 mg/dL (9-20)
[2021-01-16 13:15] VITALS: BP 117/85; PULSE 77; RESP 18; TEMP 37; O2SAT 100
[2021-01-16 14:16] VITALS: BP 117/85; PULSE 77; RESP 18; TEMP 37; O2SAT 100
--- NOTE | 2021-01-16 14:43 | PCPTNOTE ---
patient refused eval due to a headache. attempted to coax patient to attempt a little bit of mobility then refused.
[2021-01-16 22:00] VITALS: BP 100/66; PULSE 76; RESP 16; TEMP 37.3; O2SAT 100
[2021-01-16] MEDS: ERTAPENEM 1 GM/NS 50 ML 1 GM/50 ML BAG IVPB (22:24)
[2021-01-17 06:00] VITALS: BP 94/66; PULSE 78; RESP 18; TEMP 37.4; O2SAT 98
[2021-01-17 06:13] LABS: Basophils Absolute Auto 0.1 K/mm3 (0.0-0.1); Basophils Percent Auto 0.7 % (0.2-1.2); Eosinophils Absolute Auto 1.2 K/mm3 (0-0.3); Eosinophils Percent Auto 7.6 % (0-4.4); Hematocrit 31.9 % (42.0-52.0); Hemoglobin 10.5 g/dL (14.0-18.0); Immature Granulocyte Absolute 0.09 K/mm3 (0.00-0.031); Immature Granulocyte Percent A 0.6 % (0-0.5); Lymphocytes Absolute Auto 2.88 K/mm3 (0.9-3.2); Mean Corpuscular HGB Conc 32.9 g/dl (32-36); Mean Corpuscular Hemoglobin 32.8 pg (26-34); Mean Corpuscular Volume 99.7 fl (80-100); Mean Platelet Volume 12.1 fl (7.4-10.4); Monocytes Absolute Auto 1.6 K/mm3 (0.1-0.6); Monocytes Percent Auto 10.5 % (2.6-8.5); Neutrophils Absolute Auto 9.4 K/mm3 (1.3-6.7); Neutrophils Percent Auto 61.6 % (45.5-73.1); Nucleated Red Blood Cells Perc 0.2 % (0.0-0.2); Platelet Count Result 208 k/mm3 (150-375); Red Cell Distribution Width 21.3 % (11.5-14.5); White Blood Count 15.2 K/mm3 (4.5-10.0)
[2021-01-17] MEDS: metroNIDAZOLE 250 MG TABLET 500 MG PO ×3 (06:16→21:19)
[2021-01-17 06:17] LABS: Ammonia 33 umol/L (9-30)
[2021-01-17 06:26] LABS: Alanine Aminotransferase 27 U/L (4-50); Alkaline Phosphatase 442 U/L (38-126); Anion Gap 5 mmol/L (8-16); Aspartate Amino Transferase 75 U/L (17-59); Bilirubin,Total 6.6 mg/dL (0.2-1.3); Calcium 7.9 mg/dL (8.4-10.2); Carbon Dioxide 22 mmol/L (22-30); Chloride 107 mmol/L (98-107); Creatine Kinase < 20 U/L (55-170); Estimated CRCL calculation 151 ml/min; Estimated Glomerular Filt Rate > 60; Glucose 88 mg/dL (75-110); Lipase 77 U/L (23-300); Potassium 3.9 mmol/L (3.4-5.0); Sodium 134 mmol/L (137-145)
[2021-01-17 06:30] LABS: Blood Urea Nitrogen < 2 mg/dL (9-20)
[2021-01-17] MEDS: levETIRAcetam 500 MG TABLET PO ×2 (08:58→21:19)
[2021-01-17] MEDS: EUCERIN CREAM 120 GM JAR 1 APPLIC TOPICAL (08:58)
--- NOTE | 2021-01-17 10:52 | PM.IMPN ---
Progress Note: A&P Assessment and Plan (1) Cirrhosis: Code(s): K74.60 - Unspecified cirrhosis of liver Status: Acute Assessment and Plan: Monitor for complication (2) Anemia: Qualifiers: Anemia type: unspecified type Qualified Code(s): D64.9 - Anemia, unspecified Code(s): D64.9 - Anemia, unspecified Status: Acute Assessment and Plan: Transfused 2 units of red blood cells 01/14 Most likely related to chronic inflammation and cirrhosis, no obvious bleeding, GI are following EGD no acute bleeding (3) Seizure disorder: Code(s): G40.909 - Epilepsy, unspecified, not intractable, without status epilepticus Status: Acute Assessment and Plan: On Keppra, discharge was held 01/15 because patient had seizure Keppra level is pending (4) Weakness: Code(s): R53.1 - Weakness Status: Acute Assessment and Plan: nonfocal consult PT OT Subjective Date/time seen: 01/17/21 10:52 Interval history: Patient discharge was held because he had seizure before he got discharged 01/15, 01/16 patient had slow witnessed fall without injury in the afternoon Exam Const: General: cooperative and no acute distress HENMT: Head: normal to inspection Eyes: General: appearance normal, both eyes and all related structures Neck: Neck: normal visual inspection Chest: Chest palpation & inspection: normal inspection of the chest Resp: Effort & Inspection: normal respiratory effort Cardio: Jugular venous distension: no JVD Rate: regular rate GI: Inspection: normal to inspection and non-distended Objective Data Vital Signs Vital Signs: Vital Signs - 24 hr 01/16/21 13:15 01/16/21 14:16 01/16/21 22:00 Temperature 98.6 F 98.6 F 99.2 F Pulse Rate 77 77 76 Respiratory Rate 18 18 16 Blood Pressure 117/85 117/85 100/66 Pulse Oximetry 100 100 100 01/17/21 06:00 Temperature 99.3 F Pulse Rate 78 Respiratory Rate 18 Blood Pressure 94/66 L Pulse Oximetry 98 Intake/Output Intake/Output: Intake & Output 01/14/21 01/15/21 01/16/21 01/17/21 23:59 23:59 23:59 23:59 Intake Total 1999 3571 1440 238 Balance 1999 746 1440 670 Meds/Results Medications: Active Medications Generic Name Dose Route Start Last Admin Trade Name Dennis PRN Reason Stop Dose Admin Ertapenem 1 gm in 50 mls @ 100 mls/hr 01/13/21 22:00 01/16/21 22:54 Invanz 1 Gm/Ns 50 Ml IVPB Infused Q24H SARAH Infusion Levetiracetam 500 mg 01/15/21 21:00 01/17/21 08:58 Levetiracetam 500 Mg Tablet PO 500 mg Q12HR SARAH Administration Metronidazole 500 mg 01/14/21 13:00 01/17/21 06:16 Metronidazole 250 Mg Tablet PO 500 mg Q8HR SARAH Administration Multi-Ingred Cream/Lotion/Oil/Oint 1 applic 01/14/21 09:00 01/17/21 08:58 Eucerin Cream 120 Gm Jar TOPICAL 1 applic DAILY SARAH Administration Radiology Results: ITS Impressions Chest X-Ray 01/12/21 19:48 IMPRESSION: 1. No acute cardiopulmonary disease. Abdomen/Pelvis CT 01/12/21 23:12 IMPRESSION: 1. Diffuse hepatic steatosis. 2. Small volume of ascites. Abdomen Ultrasound 01/13/21 13:15 IMPRESSION: 1: Gallbladder wall thickening with possible pericholecystic fluid and gallbladder sludge. Consider acalculous cholecystitis in the appropriate clinical setting. 2: Hepatic steatosis. Labs Labs: Laboratory Results - last 24 hr 01/16/21 01/17/21 01/17/21 05:49 06:01 06:01 WBC 15.2 H RBC 3.20 L Hgb 10.5 L Hct 31.9 L MCV 99.7 MCH 32.8 MCHC 32.9 RDW 21.3 H Plt Count 208 MPV 12.1 H Immature Gran % (Auto) 0.6 H Neut % (Auto) 61.6 Lymph % (Auto) 19.0 [place] % (Auto) 10.5 H Eos % (Auto) 7.6 H Baso % (Auto) 0.7 Lymph # (Auto) 2.88 [place] # (Auto) 1.6 H Eos # (Auto) 1.2 H Baso # (Auto) 0.1 Abs Immat Gran (auto) 0.09 H Absolute Neuts (auto) 9.4 H Absolute Nucleated RBC 0.0 Nucleated RBC %
[2021-01-17 14:00] VITALS: BP 100/75; PULSE 76; RESP 18; TEMP 37.1; O2SAT 98
--- NOTE | 2021-01-17 15:17 | PCOTNOTE ---
Attempted OT evaluation this date; pt. refused x2 due to stomach pain and diarrhea every time he stands up.
[2021-01-17 20:04] LABS: Haptoglobin 9 mg/dL (43-212)
[2021-01-17] MEDS: ERTAPENEM 1 GM/NS 50 ML 1 GM/50 ML BAG IVPB (21:20)
[2021-01-17 22:00] VITALS: BP 106/60; PULSE 78; RESP 18; TEMP 36.4; O2SAT 100
[2021-01-18] MEDS: diphenhydrAMINE HCl CAP 25 MG CAPSULE PO (01:26)
[2021-01-18] MEDS: metroNIDAZOLE 250 MG TABLET 500 MG PO ×2 (05:36→13:58)
[2021-01-18 06:00] VITALS: BP 111/66; PULSE 78; RESP 16; TEMP 36.7; O2SAT 100
[2021-01-18] MEDS: levETIRAcetam 500 MG TABLET PO (09:29)
[2021-01-18] MEDS: EUCERIN CREAM 120 GM JAR 1 APPLIC TOPICAL (09:29)
--- NOTE | 2021-01-18 11:27 | PC.NURSE ---
Spoke with Dr Harry about patients ammonia level of 33 from 6-27-21. Asked Dr Harry if he wanted to repeat labs before patient discharges or if we needed to give a dose of lactulose. Piero stated patient is stable and no need to redraw or treat.
--- NOTE | 2021-01-18 11:43 | PM.DS ---
DS: Admitting Diagnosis Admitting Diagnosis Admitting Diagnosis: cirrhosis alcohol abuse DS: Discharge Diagnosis Discharge Diagnosis (1) Cirrhosis: Code(s): K74.60 - Unspecified cirrhosis of liver Status: Acute Assessment and Plan: Monitor for complication (2) Anemia: Qualifiers: Anemia type: unspecified type Qualified Code(s): D64.9 - Anemia, unspecified Code(s): D64.9 - Anemia, unspecified Status: Acute Assessment and Plan: Transfused 2 units of red blood cells 01/14 Most likely related to chronic inflammation and cirrhosis, no obvious bleeding, GI are following EGD no acute bleeding (3) Seizure disorder: Code(s): G40.909 - Epilepsy, unspecified, not intractable, without status epilepticus Status: Acute Assessment and Plan: On Keppra, discharge was held 01/15 because patient had seizure Keppra level is pending (4) Weakness: Code(s): R53.1 - Weakness Status: Acute Assessment and Plan: nonfocal consult PT OT DS: Summary Hospital Course Reason for hospitalization: Cirrhosis Elevated liver enzyme Alcohol drinking problem Hospital Course: Chief Complaint: Jaundice Narrative: This is a 50-year-old male with past medical history significant for alcohol dependence patient drinks a pt of liquor daily plus beer, hepatic cirrhosis. Patient presented to the emergency room after he noticed jaundice also has had a pruritic rash all over his body for the last month or so. patient was found to be anemic during this hospitalization, required blood transfusion, GI were consulted, EGD unremarkable, anemia most likely related to his chronic illness, patient discharge was held initially because patient had seizure for about 20 seconds at the day of discharge, patient received IV Keppra with plan to discharge on the same home doses of his Keppra, PT and OT were consulted for generalized weakness, and patient will be discharged home with referral to alcohol detox programs. Time Spent with Patient Time attestation: Total time spent providing and/or coordinating discharge services: Time spent: Greater than 30 minutes Exam Const: General: cooperative and no acute distress HENMT: Head: normal to inspection Eyes: General: appearance normal, both eyes and all related structures Neck: Neck: normal visual inspection Chest: Chest palpation & inspection: normal inspection of the chest Resp: Effort & Inspection: normal respiratory effort Cardio: Jugular venous distension: no JVD Rate: regular rate GI: Inspection: normal to inspection and non-distended DS: Data Data Completed and Pending Labs on day of discharge: Labs from last 24 hours 01/14/21 08:05 Haptoglobin 9 L Preliminary micro results at discharge 01/13/21 01:53 Blood Culture - Preliminary Blood 01/13/21 01:53 Blood Culture - Preliminary Blood Discharge Plan Discharge Consulting providers: Keny Wade Discharging Clinician: Micky Harry Patient Disposition: Home, Self-Care Activity: as tolerated Diet: regular Discharge Instructions: Do not drink alcohol. Community resources have been provided for recommended follow up. Patient Instructions: How to Stop Smoking (DC), Cirrhosis (DC), Anemia (DC) Stand Alone Forms: General Discharge Information Follow-up/Referrals: Keny Wade MD [Physician] - 1 Week Mauro Mendieta, PA-C [Primary Care Provider] - 1 Week Discharge Medications: New thiamine HCl (vitamin B1) 100 mg tablet 100 mg PO DAILY Qty: 30 RF: 0 folic acid 1 mg tablet 1 mg PO DAILY Qty: 30 RF: 0 Continued levetiracetam [Keppra] 750 mg tablet 750 mg PO BID Qty: 180 RF: 0 Date of admission: 01/13/21 00:16 Primary Care Provider: Mauro Mendieta Admitting Provider: Danyel Rouse V. Attending physician on admission: Micky Harry Condition: Stable Quality VTE Prophylaxis
[2021-01-18 14:00] VITALS: BP 100/66; PULSE 85; RESP 18; TEMP 37.2; O2SAT 100
[2021-01-21 06:13] LABS: Levetiracetam Keppra 17.8 mcg/mL (12.0-46.0)
[2021-01-27 22:04] LABS: Hepatitis Delta Antibody NEGATIVE
--- NOTE | 2021-02-04 19:32 | PM.IMPN ---
Progress Note: A&P Assessment and Plan (1) Cirrhosis: Code(s): K74.60 - Unspecified cirrhosis of liver Status: Chronic Assessment and Plan: Monitor for complication (2) Anemia: Qualifiers: Anemia type: unspecified type Qualified Code(s): D64.9 - Anemia, unspecified Code(s): D64.9 - Anemia, unspecified Status: Chronic Assessment and Plan: Transfused 2 units of red blood cells 01/14 Most likely related to chronic inflammation and cirrhosis, no obvious bleeding, GI are following EGD no acute bleeding (3) Seizure disorder: Code(s): G40.909 - Epilepsy, unspecified, not intractable, without status epilepticus Status: Acute Assessment and Plan: On Keppra, discharge was held 01/15 because patient had seizure Keppra level is pending (4) Weakness: Code(s): R53.1 - Weakness Status: Acute Assessment and Plan: nonfocal consult PT OT Subjective Date/time seen: date of service 01/15/21 19:32 Interval history: discharge was held because patient had an episode of seizure for 20 seconds. Exam Const: General: cooperative and no acute distress HENMT: Head: normal to inspection Eyes: General: appearance normal, both eyes and all related structures Neck: Neck: normal visual inspection Chest: Chest palpation & inspection: normal inspection of the chest Resp: Effort & Inspection: normal respiratory effort Cardio: Jugular venous distension: no JVD Rate: regular rate GI: Inspection: normal to inspection and non-distended Objective Data Meds/Results Radiology Results: ITS Impressions Chest X-Ray 01/12/21 19:48 IMPRESSION: 1. No acute cardiopulmonary disease. Abdomen/Pelvis CT 01/12/21 23:12 IMPRESSION: 1. Diffuse hepatic steatosis. 2. Small volume of ascites. Abdomen Ultrasound 01/13/21 13:15 IMPRESSION: 1: Gallbladder wall thickening with possible pericholecystic fluid and gallbladder sludge. Consider acalculous cholecystitis in the appropriate clinical setting. 2: Hepatic steatosis. Quality VTE Prophylaxis VTE prophylaxis: mechanical ordered
== END 2021-01-18 15:45 | disposition home or self-care (01) ==
LOC: ANHED 01-13 00:25 → ANH3MEDSUR 01-13 00:38
PROVIDERS: Internal Medicine Gastroenterology; Admitting Provider Internal Medicine; Emergency Provider Emergency Medicine; PCP Physician Assistant; Visit Provider Emergency Medicine
PROC: 0DJ08ZZ Inspection of Upper Intestinal Tract, Via Natural or Artificial Opening Endoscopic (ICD-10-PCS; CPT 43235; principal; 2021-01-13 12:45)
DX: K74.60 Unspecified cirrhosis of liver (principal); F10.20 Alcohol dependence, uncomplicated; K92.0 Hematemesis; K21.9 Gastro-esophageal reflux disease without esophagitis; K29.20 Alcoholic gastritis without bleeding; D63.8 Anemia in other chronic diseases classified elsewhere; G40.909 Epilepsy, unspecified, not intractable, without status epilepticus; R53.1 Weakness; R74.8 Abnormal levels of other serum enzymes; F17.210 Nicotine dependence, cigarettes, uncomplicated; F19.10 Other psychoactive substance abuse, uncomplicated; I10 Essential (primary) hypertension; Z79.899 Other long term (current) drug therapy
CPT/HCPCS: 36415; 36430; 71046; 74177; 76705; 80048; 80053; 80074; 80076; 80177; 82140; 82274; 82550; 82607; 82728; 82746; 82747; 83010; 83540; 83550; 83690; 83735; 84100; 84466; 85025; 85027; 85046; 85610; 85730; 86692; 86706; 86709; 86790; 86850; 86900; 86901; 86920; 87040; 87081; 87177; 87209; 87340; 93005; 96360; 97116; 97161; 97165; 99199; 99285; A9270; J1335; J1953; J2001; J2060; J2704; J3411; J3430; J3475; J3480; J7030; J7042; J7050; J7060; J7120; P9016; Q9967

== ENCOUNTER 2021-01-22 05:28 | Observation (INO) | payer BC, SELFPAY ==
[2021-01-22] VITALS (10 sets, daily range): BP systolic 104–140; BP diastolic 74–104; PULSE 80–95; RESP 14–18; TEMP 36.3–36.5; O2SAT 98–100; BMI 20.5
--- NOTE | ~2021-01-22 | CT_ITS ---
EXAMINATION: CT brain wo con DATE: 01/22/2021 06:17 INDICATION: Seizure TECHNIQUE: Computed tomography (CT) of the head was performed without intravenous contrast. Sagittal and coronal reconstructions were performed. The mA was adjusted according to patient size. Iterative reconstruction technique was employed. The dose-length product was 605.33 mGy-cm. COMPARISON: head CT dated 04/12/2020 FINDINGS: No acute intracranial hemorrhage, acute infarction or abnormal extra axial fluid collection. Ventricl es are normal and symmetric. No mass/mass effect. Mucous retention cyst in the right maxillary and sp henoid sinuses. The orbits and mastoid air cells are normal. IMPRESSION: 1. No acute intracranial process. Reviewed, dictated and finalized at location A.
--- NOTE | 2021-01-22 05:43 | ECG_ITS ---
Measurements Intervals [place] Rate: 94 P: 61 KS: 143 QRS: 49 QRSD: 87 T: 67 QT: 399 QTc: 501 Interpretive Statements SINUS RHYTHM NORMAL ECG Electronically Signed On 01-22-2021 7:41:04 CDT by Jose Maria Hutton D.O.
[2021-01-22] MEDS: LORazepam INJ (*CRX) 2 MG/ML VIAL IV PUSH (05:44)
[2021-01-22] MEDS: levETIRAcetam 1000MG/NACL100ML 1,000 MG/100 ML BAG 400 MG IVPB (05:46)
[2021-01-22] MEDS: SODIUM CHLORIDE 0.9% IV 1,000 ML 999 ML IV CONT (05:53)
--- NOTE | 2021-01-22 05:56 | ED.GENADULT ---
HPI - General Adult General Chief complaint: Alcohol Stated complaint: seizure Time Seen by Provider: 01/22/21 05:35 Source: EMS Mode of arrival: EMS Limitations: other (postictal) History of Present Illness HPI narrative: This is a 50 year old male with history of alcohol abuse, cirrhosis, epilepsy who presents via EMS for evaluation of seizures. EMS states patient has been drinking alcohol all day. Patient's mother found patient having a seizure tonight so EMS was called. EMS reports patient is known for being noncompliant and running out of his medication. On arrival patient, appears confused and he is incontinent of stool and urine. Patient was discharged from [facility] on 01/18/21 after evaluation of vomiting . He had an EDG performed that showed alcoholic gastritis. Related Data Allergies Allergy/AdvReac Type Severity Reaction Status Date / Time No Known Allergies Allergy Unknown Verified 01/13/21 13:39 Review of Systems Review of Systems: ROS unobtainable: Yes unobtainable due to mental status PMFSH Past Medical History Medical History (Updated 01/22/21 @ 08:07 by Ivette Monteiro MD) Anxiety Hypertension Polysubstance abuse Urine drug screen positive on 08/07/2019 for amphetamines, cocaine, and cannabinoids. Urine drug screen positive on 08/24/2019 for cocaine and cannabinoids. Seizure disorder Tobacco dependence Surgical History Surgical History No history of previous surgery Family History Family History Mother Acute myocardial infarction Grandparent Acute myocardial infarction Father Unknown family medical history Social History Social History Social History: The patient lives in [place] with his mayte. 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 He has smoked up to 1 pack of cigarettes per day for at least 20 years. He drinks 2 to 3 beers, several nights a week. He denies ever having any alcohol withdrawal symptoms. He admits to smoking marijuana daily. He uses cocaine recreationally, few times a week. He denies having ever used amphetamines however drug screen on 08/07/2019 was positive for amphetamines in addition to cocaine and cannabinoids. He assumes that his cocaine must have been contaminated with amphetamines. Smoking packs per day: 0.25 Smoking cigarettes per day: 5.0 Years smoked: 15 Smoking pack-years: 3.75 Smoking status: Current some day smoker Tobacco type: cigarettes Second hand tobacco smoke exposure: Yes Alcohol intake: current Drinks per week: 7 Substance use: former Substance use type: marijuana Gender identity (if verbalized by the patient): Male Spiritual care concerns: No Agree to blood products: Yes Exam Const: General: alert Other: disheveled Eyes: EOM: EOMs intact bilaterally Resp: Effort & Inspection: normal respiratory effort and no retractions Auscultation: clear to auscultation bilaterally Cardio: Rate: regular rate Rhythm: regular rhythm Heart sounds: no murmurs GI: GI Palp: Yes Soft to palpation, No Tenderness to palpation present (GI) and No Guarding due to palpation present (GI) Auscultation: normal bowel sounds Neuro: General: moves all extremities Course Reevaluation(s) Reevaluation #1: PAtient had seizure after arrival in ED. He was given ativan 2 mg and keppra. Date: 01/22/21 Time: 06:03 Reevaluation #2: I Discussed case with DR. Clarke who will accept patient to service if Dr. Sen agrees patient ok to admit. We are awaiting call back from Dr. Sen. Dr. Alvarez agrees to take over care and talk to Dr. Sen for disposition. Date: 01/22/21 Time: 08:06 Consultations Date: 01/22/21 Time: 08:06 Vital Signs Vital signs: Vital Signs Temperature 97.5 F L 07
[2021-01-22 06:30] LABS: Alanine Aminotransferase 33 U/L (4-50); Albumin Level 2.6 g/dL (3.5-5.1); Alkaline Phosphatase 473 U/L (38-126); Ammonia 60 umol/L (9-30); Anion Gap 14 mmol/L (8-16); Aspartate Amino Transferase 106 U/L (17-59); Bilirubin,Total 4.4 mg/dL (0.2-1.3); Calcium 7.8 mg/dL (8.4-10.2); Carbon Dioxide 18 mmol/L (22-30); Chloride 109 mmol/L (98-107); Estimated CRCL calculation 175 ml/min; Estimated Glomerular Filt Rate > 60; Ethanol 94 mg/dL (<10); Glucose 116 mg/dL (75-110); Magnesium 1.6 mg/dL (1.6-2.3); Potassium 3.7 mmol/L (3.4-5.0); Sodium 141 mmol/L (137-145)
[2021-01-22 06:38] LABS: Blood Urea Nitrogen < 2 mg/dL (9-20)
[2021-01-22 06:39] LABS: Basophils Absolute Auto 0.1 K/mm3 (0.0-0.1); Eosinophils Absolute Auto 0.6 K/mm3 (0-0.3); Hematocrit 31.7 % (42.0-52.0); Hemoglobin 10.6 g/dL (14.0-18.0); Immature Granulocyte Absolute 0.05 K/mm3 (0.00-0.031); Immature Granulocyte Percent A 0.4 % (0-0.5); Lymphocytes Absolute Auto 1.53 K/mm3 (0.9-3.2); Lymphocytes Percent Auto 13.1 % (18.3-44.2); Mean Corpuscular HGB Conc 33.4 g/dl (32-36); Mean Corpuscular Volume 98.8 fl (80-100); Mean Platelet Volume 11.5 fl (7.4-10.4); Monocytes Absolute Auto 0.9 K/mm3 (0.1-0.6); Neutrophils Absolute Auto 8.4 K/mm3 (1.3-6.7); Neutrophils Percent Auto 72.5 % (45.5-73.1); Platelet Count Result 349 k/mm3 (150-375); Red Blood Count 3.21 M/mm3 (4.6-6.20); Red Cell Distribution Width 19.1 % (11.5-14.5); White Blood Count 11.7 K/mm3 (4.5-10.0)
[2021-01-22 06:48] LABS: INR 1.1; Prothrombin Time 14.2 Seconds (11.1-14.7)
[2021-01-22 06:49] LABS: Partial Thromboplastin Time 29.9 SECONDS (22.3-36.8)
[2021-01-22 08:15] LABS: Add Urine Microscopic? YES; Appearance Urine Clear (Clear); Bacteria Urine Trace /hpf; Bilirubin Urine Negative (Negative); Blood Urine Negative (Negative); Color Urine Amber (Yellow); Glucose Urine UA Negative (Negative); Ketones Urine Negative (Negative); Leukocyte Esterase Ur Negative LEU/UL (Negative); Mucus Urine Rare /lpf; Nitrate Urine Negative (Negative); Protein Urine 1+ mg/dL (Negative); Specific Grav Ur 1.018 (1.001-1.035); Squamous Epithelial Cell Urine Rare /hpf (Few); Urobilinogen Urine Negative mg/dL (<2.0)
--- NOTE | 2021-01-22 09:25 | ADMGEN ---
This patient, Gabriela Soriano, was admitted to Medical Room 344-01. Patient/family oriented to hospital policies and general routines including ID bracelet, bed and alarms, visiting hours, pain management, procedures, bathroom and other care routines, personal items, smoking policy, room service/diet, and visiting hours. Information on how to activate the Rapid Response Team has been discussed. Patient/Family are encouraged to report perceived risks to care and to ask questions if they do not understand what they are told or what they should do.
--- NOTE | 2021-01-22 10:36 | WPDNEURCNPN ---
Assessment and Plan Additional Plan chronic alcoholism with recurrent seizures on the basis of the noncompliance for follow-up will need the hydration continuation of the anticonvulsants further discharge planning Consult date: 01/22/21 Time Seen: 10:30 HPI: Gabriela Soriano is a 50 year old male has been admitted to the hospital through the emergency room with the complaints of alcohol abuse with documented cirrhosis in the past and also recurrent seizure on the basis of drinking as well as underlying possibility of epilepsy patient has reported be drinking all day patient's mother found him seizing EMS were called to the scene patient had noncompliance with the medication has been running out of the medication he was noted the incontinent of urine and stool and was just discharged from the hospital on January 18, 2021 after evaluation for the vomiting Review of Systems Review of Systems: All systems reviewed & are unremarkable except as noted in HPI and below PMFSH Past Medical History Medical History Anxiety Hypertension Polysubstance abuse Urine drug screen positive on 08/07/2019 for amphetamines, cocaine, and cannabinoids. Urine drug screen positive on 08/24/2019 for cocaine and cannabinoids. Seizure disorder Tobacco dependence Surgical History Surgical History No history of previous surgery Family History Family History Mother Acute myocardial infarction Grandparent Acute myocardial infarction Father Unknown family medical history Social History Social History Social History: The patient lives in [place] with his fitheodoree. 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 He has smoked up to 1 pack of cigarettes per day for at least 20 years. He drinks 2 to 3 beers, several nights a week. He denies ever having any alcohol withdrawal symptoms. He admits to smoking marijuana daily. He uses cocaine recreationally, few times a week. He denies having ever used amphetamines however drug screen on 08/07/2019 was positive for amphetamines in addition to cocaine and cannabinoids. He assumes that his cocaine must have been contaminated with amphetamines. Smoking packs per day: 0.25 Smoking cigarettes per day: 5.0 Years smoked: 15 Smoking pack-years: 3.75 Smoking status: Current some day smoker Tobacco type: cigarettes Second hand tobacco smoke exposure: Yes Alcohol intake: current Drinks per week: 7 Substance use: current Substance use type: marijuana Other substance usage details: amounts unknown/substance types unknown Gender identity (if verbalized by the patient): Male Spiritual care concerns: No Agree to blood products: Yes Meds Home Medications and Allergies Home Medications Medication Instructions Recorded Confirmed Type levetiracetam 750 mg tablet 750 mg PO BID #180 tablet 09/08/20 01/22/21 Rx folic acid 1 mg PO DAILY #30 tablet 01/15/21 01/22/21 Rx thiamine HCl (vitamin B1) 100 mg PO DAILY #30 tablet 01/15/21 01/22/21 Rx Allergies Allergy/AdvReac Type Severity Reaction Status Date / Time No Known Allergies Allergy Unknown Verified 01/22/21 09:25 Vital Signs Vital Signs - 24 hr 01/22/21 05:29 01/22/21 07:31 01/22/21 09:28 Temperature 36.4 C L 36.3 C L Pulse Rate 95 90 80 Respiratory Rate 16 15 18 Blood Pressure 124/95 H 136/104 H 140/93 H Pulse Oximetry 100 98 100 Exam Narrative: Exam Narrative: examination at this stage is rather limited he sleeps had normal Tracey deep sternal rub he open his eyes extraocular movements are intact bilateral heart regular lungs clear abdomen is soft neurological examination revealed him to be drowsy on sternal rub with moves both upper and lower extremities reflexes sluggish
[2021-01-22] MEDS: SODIUM CHLORIDE 0.9% IV 1,000 ML 125 ML IV CONT ×2 (10:39→18:39)
--- NOTE | 2021-01-22 14:16 | PM.IMHP ---
H&P: HPI History of Present Illness Date/Time: 01/22/21 14:16Thiangelica is a 50-year-old male patient who has a history of alcoholism and seizure disorder. The patient was just discharged from this facility on 01/15/2021 and had been discharged on Keppra 750 p.o. b.i.d. quantity 180. See his discharge from 01/15/2021. It was also noted that the patient had an EGD and no bleed was found but the patient was given 2 units packed red blood cells while he was here. He has a history of cirrhosis of the liver. He has been checked for hepatitis in the past and he was negative for hepatitis B and C. he is being followed by GI. I am unable to retrieve any information from the patient he opens his eyes in response to his name but then falls back asleep. Information was obtained from his past records and ER records as well. As per ER notes the patient was found to be having a seizure at home and his mother activated EMS. The patient was confused upon arrival he was incontinent of stool in urine. The patient also has a history of noncompliance and alcoholic gastritis. Neurology was consulted and has already seen the patient. The patient was given 2 mg of IV Ativan in the emergency room, Keppra, and IV fluids. His alcohol level today is 94. Last Keppra level was 17.8 on 01/17/2021. Head CT from today shows no acute intracranial process. His white count 11.7. H&H is 10.6 and 31.7. Ammonia level from today is 60. Patient is being admitted for observation on the date of service of 01/22/2021. Chief Complaint: Seizure Review of Systems Review of Systems: All systems reviewed & are unremarkable except as noted in HPI and below Constitutional: Constitutional: Reports as per HPI and Reports no additional constitutional complaints Eyes: Eyes: Reports as per HPI and Reports no additional eye complaints ENT: Reports system reviewed and no additional complaints, except as documented and Reports Normal hearing present Cardiovascular: Cardiovascular: Reports no additional cardiovascular complaints Respiratory: Respiratory: Reports no additional respiratory complaints and Reports no additional respiratory complaints Gastrointestinal: Gastrointestinal: Reports as per HPI and Reports no additional gastrointestinal complaints Musculoskeletal: Musculoskeletal: Reports no additional musculoskeletal complaints Integumentary/Breasts: Skin/Breast: Reports system reviewed and no additional complaints, except as docu and Reports as per HPI Neurologic: Reports system reviewed and no additional complaints, except as documented, Reports as per HPI and Reports Normal hearing present Psychiatric: Psychiatric: Reports no additional psychiatric complaints and Reports as per HPI Endocrine: Endocrine: Reports no additional endocrine complaints Hematologic/Lymphatic: Hematologic/Lymphatic: Reports no additional hematologic/lymphatic complaints Allergic/Immunologic: Allergic/Immunologic: Reports no additional allergic/immunologic complaints [facility] Past Medical History Medical History (Updated 01/22/21 @ 14:24 by Susie Wylie NP) Alcoholism Anemia Anxiety Cirrhosis Hypertension Polysubstance abuse Urine drug screen positive on 08/07/2019 for amphetamines, cocaine, and cannabinoids. Urine drug screen positive on 08/24/2019 for cocaine and cannabinoids. Seizure disorder Seizure disorder Tobacco dependence Surgical History Surgical History (Updated 01/22/21 @ 14:24 by Susie Wylie NP) No history of previous surgery Surgical history unknown Family History Family History Mother Acute myocardial infarction Grandparent Acute myocardial infarction Father Unknown family medical history Social History Social History Social History: The patient lives in [place] with his dange. 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
[2021-01-22] MEDS: levETIRAcetam IV 750 MG in DEXTROSE 5% 100 ML 430 MG IVPB (20:41)
[2021-01-23] VITALS: PULSE 86
[2021-01-23] MEDS: SODIUM CHLORIDE 0.9% IV 1,000 ML 125 ML IV CONT (03:15)
[2021-01-23 04:00] VITALS: PULSE 93
[2021-01-23 05:34] VITALS: BP 114/82; PULSE 83; RESP 18; TEMP 36.2; O2SAT 100
[2021-01-23 06:22] LABS: Basophils Absolute Auto 0.1 K/mm3 (0.0-0.1); Basophils Percent Auto 0.4 % (0.2-1.2); Eosinophils Absolute Auto 1.8 K/mm3 (0-0.3); Hematocrit 27.4 % (42.0-52.0); Immature Granulocyte Absolute 0.05 K/mm3 (0.00-0.031); Immature Granulocyte Percent A 0.3 % (0-0.5); Lymphocytes Absolute Auto 3.43 K/mm3 (0.9-3.2); Lymphocytes Percent Auto 23.1 % (18.3-44.2); Mean Corpuscular HGB Conc 32.8 g/dl (32-36); Mean Corpuscular Hemoglobin 32.7 pg (26-34); Mean Corpuscular Volume 99.6 fl (80-100); Mean Platelet Volume 11.5 fl (7.4-10.4); Monocytes Absolute Auto 1.4 K/mm3 (0.1-0.6); Monocytes Percent Auto 9.2 % (2.6-8.5); Neutrophils Absolute Auto 8.2 K/mm3 (1.3-6.7); Platelet Count Result 296 k/mm3 (150-375); Red Blood Count 2.75 M/mm3 (4.6-6.20); Red Cell Distribution Width 18.8 % (11.5-14.5); White Blood Count 14.9 K/mm3 (4.5-10.0)
[2021-01-23 06:30] LABS: Ammonia 20 umol/L (9-30)
[2021-01-23 06:32] LABS: Alanine Aminotransferase 27 U/L (4-50); Albumin Level 1.9 g/dL (3.5-5.1); Alkaline Phosphatase 337 U/L (38-126); Anion Gap 3 mmol/L (8-16); Aspartate Amino Transferase 95 U/L (17-59); Bilirubin,Total 3.5 mg/dL (0.2-1.3); Calcium 7.2 mg/dL (8.4-10.2); Carbon Dioxide 24 mmol/L (22-30); Chloride 112 mmol/L (98-107); Estimated CRCL calculation 161 ml/min; Estimated Glomerular Filt Rate > 60; Glucose 96 mg/dL (75-110); Magnesium 1.3 mg/dL (1.6-2.3); Sodium 139 mmol/L (137-145)
[2021-01-23 06:33] LABS: Blood Urea Nitrogen < 2 mg/dL (9-20)
[2021-01-23 07:32] LABS: Anisocytosis 1+ (NORMAL); Hypochromasia 1+ (NORMAL); Platelet Estimate Adequate (Adequate)
[2021-01-23 07:33] LABS: Target Cells 1+ (NORMAL)
[2021-01-23 08:00] VITALS: PULSE 92
[2021-01-23] MEDS: FOLIC ACID 1 MG/0.2 ML INJ IV PUSH (10:09)
[2021-01-23] MEDS: levETIRAcetam IV 750 MG in DEXTROSE 5% 100 ML 430 MG IVPB (10:10)
[2021-01-23] MEDS: THIAMINE HCL 200 MG/2 ML VIAL 100 MG IV PUSH (10:10)
[2021-01-23] MEDS: LACTULOSE 20 GM/30 ML UDC PO (10:10)
[2021-01-23] MEDS: MAGNESIUM SULFATE 3GM/D5W100ML 3 GM/100 ML BAG IVPB (10:38)
[2021-01-23 12:00] VITALS: PULSE 78
[2021-01-23 12:59] LABS: Magnesium 2.1 mg/dL (1.6-2.3)
[2021-01-23 14:00] VITALS: BP 117/80; PULSE 87; RESP 18; TEMP 36.7; O2SAT 97
--- NOTE | 2021-01-23 14:02 | PM.DS ---
DS: Admitting Diagnosis Admitting Diagnosis Admitting Diagnosis: Seizure, epilepsy with medication noncompliance DS: Discharge Diagnosis Discharge Diagnosis (1) Seizure disorder: Code(s): G40.909 - Epilepsy, unspecified, not intractable, without status epilepticus Status: Chronic Assessment and Plan: Date of Admission 01/22/21 Date of Discharge 01/23/21 Mr. Soriano is a 50yo M with alcoholism, cirrhosis, chronic anemia, and epilepsy with known medication noncompliance who presented to the ED for evaluation of seizure activity. Triage records describe patient had an empty vodka bottle next to him when EMS arrived. He had a seizure during triage and was treated with IV ativan. He was stared on IV doses of his home Keppra dose. He was intoxicated on arrival and alcohol level was 94mg/dL. He was just discharged from our facility last week for same issues, seen by GI and diagnosed with advanced cirrhosis with elevated bilirubin and jaundice. Patient admits he does not take his Keppra at home. He is unsure if he even has any at home right now. Last week when he was discharged, his home Keppra was continued but I am unsure if a new script was sent. External medication reconciliation records suggest he has not picked up any Keppra since Aug 2020. I sent a new script to the pharmacy. No further seizure activity. Patient is again educated on the importance of taking his Keppra twice daily as prescribed and the importance of alcohol cessation. He has poor insight and judgement regarding his medical conditions but overall is hemodynamically stable for discharge 01/23/21 to follow up with neurology and PCP. (2) Alcoholism: Code(s): F10.20 - Alcohol dependence, uncomplicated Status: Chronic Assessment and Plan: Cessation education performed. (3) Cirrhosis: Code(s): K74.60 - Unspecified cirrhosis of liver Status: Chronic Assessment and Plan: He is jaundiced. Seen by GI during his hospital admission last week. Advanced cirrhosis. Bilirubin and LFTs better than last week, stable. Follow up with GI. (4) Anemia: Qualifiers: Anemia type: unspecified type Qualified Code(s): D64.9 - Anemia, unspecified Code(s): D64.9 - Anemia, unspecified Status: Chronic Assessment and Plan: H&H low but stable and appear at his baseline. No evidence of acute bleeding. DS: Summary Hospital Course Hospital Course: See above Time Spent with Patient Time attestation: Total time spent providing and/or coordinating discharge services: 35 minutes Exam Narrative: Exam Narrative: General: Disheveled male resting comfortably supine in bed in no acute distress. Skin is dry. HEENT: Normocephalic, EOMI, oral mucosa tacky. Cardiovascular: Rate and rhythm are regular. Respiratory: Lungs clear to auscultation bilaterally. Respirations even and non-labored. Abdomen: Soft, non-tender, non-distended, bowel sounds present. Extremities: Peripheral pulses intact. No edema or pain to palpation. Neuro: Awake and alert; answering questions appropriately. No focal neurological deficits are appreciated. Speech is clear. DS: Data Data Completed and Pending Labs on day of discharge: Last Vital Signs Temp 98.0 F 01/23/21 14:00 Pulse 87 01/23/21 14:00 Resp 18 01/23/21 14:00 BP 117/80 01/23/21 14:00 Pulse Ox 97 01/23/21 14:[address] 01/22/21 07:26 IMPRESSION: 1. No acute intracranial process. Laboratory Tests 01/23/21 06:13 01/23/21 06:13 Discharge Plan Discharge Attending physician on discharge: Danyel Rouse V. Consulting providers: Sebastien Sen Discharging Clinician: Sandra Oleary Anticipated Discharge Date/Time: 01/23/21 13:46 Patient Disposit
== END 2021-01-23 15:02 | disposition home or self-care (01) ==
LOC: ANHED 06:26 → ANH3MED 09:37
PROVIDERS: Nurse Practitioner; Physician Assistant; Admitting Provider Internal Medicine; Emergency Provider General Practice; PCP Physician Assistant; Visit Provider Internal Medicine
DX: G40.909 Epilepsy, unspecified, not intractable, without status epilepticus (principal); F10.20 Alcohol dependence, uncomplicated; K74.60 Unspecified cirrhosis of liver; K29.20 Alcoholic gastritis without bleeding; D64.9 Anemia, unspecified; F41.9 Anxiety disorder, unspecified; I10 Essential (primary) hypertension; F17.210 Nicotine dependence, cigarettes, uncomplicated; F12.90 Cannabis use, unspecified, uncomplicated; F14.90 Cocaine use, unspecified, uncomplicated; Z79.899 Other long term (current) drug therapy; Z91.14 Patient's other noncompliance with medication regimen
CPT/HCPCS: 36415; 51701; 70450; 80053; 80307; 81001; 82140; 83735; 85025; 85610; 85730; 93005; 96361; 96365; 96366; 96367; 96375; 96376; 99285; A9270; G0378; G0379; J1953; J2060; J3411; J3475; J7030

== ENCOUNTER 2021-03-07 17:46 | Emergency (ER) | payer BC, SELFPAY ==
[2021-03-07] MEDS: levETIRAcetam 1000MG/NACL100ML 1,000 MG/100 ML BAG 400 MG IVPB (17:45)
[2021-03-07 17:57] VITALS: BP 138/99; PULSE 95; RESP 21; O2SAT 100
--- NOTE | 2021-03-07 19:43 | ED.GENADULT ---
HPI - General Adult General Chief complaint: Seizure Stated complaint: seizure Time Seen by Provider: 03/07/21 19:12 History of Present Illness HPI narrative: Patient 50-year-old gentleman who presents the emergency department with chief complaint of seizure. The patient has a history of a seizure disorder also history of alcohol abuse. The patient had several seizures today of the family reports they not completely sure if he has been taking his seizure medication as prescribed but they think he took 1 dose today. They report that he is not had a seizure since the last time he was admitted to the hospital after he had alcohol withdrawal and seizures. Related Data Allergies Allergy/AdvReac Type Severity Reaction Status Date / Time No Known Allergies Allergy Unknown Verified 01/22/21 09:25 Review of Systems Review of Systems: A 10 system review of systems was completed on the patient and is negative except for what is stated in the HPI. Nursing and ancillary documentation was reviewed. [facility] Past Medical History Medical History Alcoholism Anemia Anxiety Cirrhosis Hypertension Polysubstance abuse Urine drug screen positive on 08/07/2019 for amphetamines, cocaine, and cannabinoids. Urine drug screen positive on 08/24/2019 for cocaine and cannabinoids. Seizure disorder Seizure disorder Tobacco dependence Surgical History Surgical History No history of previous surgery Surgical history unknown Family History Family History Mother Acute myocardial infarction Grandparent Acute myocardial infarction Father Unknown family medical history Social History Social History Social History: The patient lives in [place] with his theodore. 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 He has smoked up to 1 pack of cigarettes per day for at least 20 years. He drinks 2 to 3 beers, several nights a week. He denies ever having any alcohol withdrawal symptoms. He admits to smoking marijuana daily. He uses cocaine recreationally, few times a week. He denies having ever used amphetamines however drug screen on 08/07/2019 was positive for amphetamines in addition to cocaine and cannabinoids. He assumes that his cocaine must have been contaminated with amphetamines. Smoking packs per day: 0.25 Smoking cigarettes per day: 5.0 Years smoked: 15 Smoking pack-years: 3.75 Smoking status: Current some day smoker Tobacco type: cigarettes Second hand tobacco smoke exposure: Yes Alcohol intake: current Drinks per week: 7 Alcohol use details: 2-3 beers per day Substance use: current Substance use type: marijuana Other substance usage details: amounts unknown/substance types unknown Gender identity (if verbalized by the patient): Male Spiritual care concerns: No Agree to blood products: Yes Exam Narrative: GENERAL: Well-appearing, well-nourished, and in no acute distress. HEAD: Normocephalic, atraumatic. EYES: PERRLA and EOMI. ENT: Nares clear, no rhinorrhea or epistaxis. Mucous membranes moist. NECK: Supple. CHEST: Clear to auscultation. No respiratory distress. HEART: Regular rate and rhythm. No murmur heard. Normal peripheral pulses. ABDOMEN: Soft, nontender, nondistended, normal active bowel sounds. EXTREMITIES: Normal range of motion. No edema. SKIN: Warm, dry, no rash. NEURO: No focal deficits. Alert and oriented x3. PSYCH: Normal mood and affect. Course Vital Signs Vital signs: Vital Signs Pulse Rate 95 03/07/21 17:57 Respiratory Rate 21 H 03/07/21 17:57 Blood Pressure 138/99 H 03/07/21 17:57 Pulse Oximetry 100 03/07/21 17:57 Pulse Rate 83 03/07/21 22:38 Respiratory
[2021-03-07] MEDS: LORazepam INJ (*CRX) 2 MG/ML VIAL 1 MG IV PUSH (20:52)
[2021-03-07 21:14] VITALS: BP 134/93; PULSE 89; RESP 12; O2SAT 100
[2021-03-07 21:35] LABS: Basophils Absolute Auto 0.1 K/mm3 (0.0-0.1); Basophils Percent Auto 0.8 % (0.2-1.2); Eosinophils Percent Auto 0.3 % (0-4.4); Hematocrit 32.9 % (42.0-52.0); Hemoglobin 11.5 g/dL (14.0-18.0); Immature Granulocyte Absolute 0.03 K/mm3 (0.00-0.031); Immature Granulocyte Percent A 0.2 % (0-0.5); Lymphocytes Absolute Auto 2.63 K/mm3 (0.9-3.2); Lymphocytes Percent Auto 20.5 % (18.3-44.2); Mean Corpuscular Volume 94.3 fl (80-100); Mean Platelet Volume 10.7 fl (7.4-10.4); Monocytes Absolute Auto 0.5 K/mm3 (0.1-0.6); Monocytes Percent Auto 3.9 % (2.6-8.5); Neutrophils Absolute Auto 9.6 K/mm3 (1.3-6.7); Neutrophils Percent Auto 74.3 % (45.5-73.1); Nucleated Red Blood Cells Perc 0.2 % (0.0-0.2); Platelet Count Result 318 k/mm3 (150-375); Red Blood Count 3.49 M/mm3 (4.6-6.20); Red Cell Distribution Width 14.6 % (11.5-14.5); White Blood Count 12.9 K/mm3 (4.5-10.0)
[2021-03-07 21:49] LABS: Ethanol < 10 mg/dL (<10)
[2021-03-07 21:50] LABS: Albumin Level 2.9 g/dL (3.5-5.1); Alkaline Phosphatase 326 U/L (38-126); Anion Gap 9 mmol/L (8-16); Aspartate Amino Transferase 194 U/L (17-59); Bilirubin,Total 1.2 mg/dL (0.2-1.3); Calcium 7.8 mg/dL (8.4-10.2); Carbon Dioxide 20 mmol/L (22-30); Chloride 111 mmol/L (98-107); Estimated CRCL calculation 134 ml/min; Estimated Glomerular Filt Rate > 60; Glucose 110 mg/dL (65-110); Magnesium 1.5 mg/dL (1.6-2.3); Potassium 3.2 mmol/L (3.4-5.0); Sodium 140 mmol/L (137-145)
[2021-03-07 21:58] LABS: Alanine Aminotransferase 64 U/L (4-50)
[2021-03-07 22:03] LABS: Blood Urea Nitrogen < 2 mg/dL (9-20)
[2021-03-07] MEDS: MAGNESIUM SULF 2 GM/WATER 50ML 2 GM/50 ML BAG IVPB (22:34)
[2021-03-07 22:38] VITALS: BP 137/95; PULSE 83; RESP 12; O2SAT 100
--- NOTE | 2021-03-07 23:41 | PC.NURSE ---
Assumed care of pt at this time. Pt sleeping on stretcher, VSS. Updated family on pts POC.
--- NOTE | 2021-03-08 01:06 | PC.NURSE ---
while ambulating pt. he was at 100% pulse ox and started at 120 pulse then dropped to 98 when finished walk- felt a little unsteady on feet
[2021-03-08 01:07] VITALS: BP 144/114; PULSE 74; RESP 14; TEMP 37.8; O2SAT 100
[2021-03-08 01:39] VITALS: BP 135/102; PULSE 83; RESP 14; O2SAT 100
== END 2021-03-08 01:45 | disposition home or self-care (01) ==
PROVIDERS: Emergency Provider Emergency Medicine; PCP Physician Assistant
DX: G40.909 Epilepsy, unspecified, not intractable, without status epilepticus (principal); I10 Essential (primary) hypertension; F17.210 Nicotine dependence, cigarettes, uncomplicated
CPT/HCPCS: 36415; 80053; 80307; 83735; 85025; 96365; 96366; 96368; 96375; 99284; J1953; J2060; J3475